=== PATIENT | female | born 1930 | race Caucasian/White ===

== ENCOUNTER 2016-12-05 12:47 | Observation (INO) ==
[2016-12-05] MEDS ORDERED: Aspirin 81 MG TAB.CHEW PO STA (12:54)
--- NOTE | 2016-12-05 12:57 | Emergency Department Note ---
Disposition Clinical Impression: Chest pain Qualifiers: Chest pain type: unspecified Qualified Code(s): R07.9 - Chest pain, unspecified Disposition: Admitted As Inpatient Condition: Fair Referrals: Tyler Sharma Jr, MD [Primary Care Provider] - Forms: ED Satisfaction Letter Time of Disposition: 14:26 Chest Pain HPI - General Chief Complaint: ED Chest Pain Stated Complaint: Chest Pain Time Seen by Provider: 12/05/16 12:51 Source: patient Mode of arrival: ambulatory Limitations: no limitations Vital Signs Reviewed: Yes Nursing Notes Reviewed: Yes - History of Present Illness HPI Narrative: 86-year-old female who has a history of 2 previous bypass surgeries comes in complaining of chest pain for the last couple of hours. Describes it as a pressure-like chest pain without radiation. 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 Duration: constant Onset: during rest Pain Location: substernal, left chest Severity: moderate Quality: tightness, aching, heaviness Pain Radiation: none Improves with: nothing Worsens with: nothing Associated symptoms: Denies: nausea, diaphoresis, dyspnea Treatments prior to arrival chest pain: none - Related Data Home Medications Medication Instructions Recorded Confirmed Acetaminophen w/Cod 300-30 mg 1 tab PO Q6HR PRN 05/07/15 11/14/15 [Tylenol w/Codeine #3] Aspirin 81 mg PO DAILY 05/07/15 11/14/15 Atorvastatin [Lipitor] 40 mg PO HS 05/07/15 11/14/15 Calcitonin Nasal [place] [Miacalcin 1 spray NS DAILY 05/07/15 11/14/15 Nasal [place]] Diltiazem CD (24hr) [Cardizem CD] 240 mg PO DAILY 05/07/15 11/14/15 Omega3/Dha/Epa/Fish Oil/Vit D3 1 cap PO DAILY 05/07/15 11/14/15 [Fish Oil + Vitamin D-3 Softgel] Rivaroxaban [Xarelto] 15 mg PO DAILY 05/07/15 11/14/15 Vitamin B Complex [B Complex] 1 tab PO DAILY 05/07/15 11/14/15 Budesonide/Formoterol Fumarate 1 puff IH DAILY 11/14/15 11/14/15 [Symbicort 80-4.5 Mcg Inhaler] Calcium Carbonate/Vitamin D3 1 tab PO DAILY 11/14/15 11/14/15 [Calcium 600 + Vit D Tablet] Cholecalciferol (Vitamin D3) 2,000 unit PO DAILY 11/14/15 11/14/15 [Vitamin D3] Hydrochlorothiazide [Microzide] 12.5 mg PO DAILY 11/14/15 11/14/15 Multivitamin [Multi-Day Vitamins] 1 tab PO DAILY 11/14/15 11/14/15 TraZODone 50 mg PO DAILY 11/14/15 11/14/15 Previous Rx's Medication Instructions Recorded Simethicone [Gas-X] 80 mg PO TID PRN #60 tab.chew 11/19/15 Sulfamethoxazole/Trimeth DS 1 each PO BID #20 tablet 12/20/15 [Bactrim DS] predniSONE [PredniSONE] 40 mg PO DAILY #8 tablet 12/20/15 Allergies Allergy/AdvReac Type Severity Reaction Status Date / Time clindamycin Allergy See Verified 11/14/15 16:39 Comments acetaminophen [From Vicodin] AdvReac Nausea Verified 11/14/15 16:39 hydrocodone [From Vicodin] AdvReac Nausea Verified 11/14/15 16:39 renexa Allergy Rash Uncoded 12/20/15 10:24 Constitutional: Denies: fever, chills, weakness, weight change Eyes: Denies: eye pain, eye discharge, vision change ENT ED: Denies: ear pain, throat pain, dental pain, hearing loss, epistaxis, congestion, dysphagia Cardiovascular: Reports: chest pain. Denies: palpitations, dyspnea on exertion , edema, syncope Respiratory: Denies: cough, dyspnea, wheezes, hemoptysis, stridor Gastrointestinal: Denies: abdominal pain, nausea, vomiting, diarrhea, constipation, hematemesis, melena, hematochezia Genitourinary: Denies: dysuria, frequency, hematuria, discharge Musculoskeletal: Denies: back pain, neck pain, arthralgia, myalgia Integumentary: Denies: rash, abrasion, lesions Neurological: Denies: headache, weakness, numbness, paresthesias, confusion, abnormal gait, vertigo Psychiatric: Denies: anxiety, depression, suicidal thoughts, homicidal thoughts , auditory hallucinations, visual hallucinations Endocrine: Denies: fatigue Hematological/Lymphatic: Denies: easy bleeding, easy bruising Allergic/Immunologic: Denies: facial swelling, urticaria Chest Pain PMH - Past Medical History Medical history: Reports: atrial fibrillation, hypertension, other Surgical history: Reports: cataract, coronary bypass (CABG) Psychiatric history: Reports: no psych history BATTERYMAN history: Reports: no BATTERYMAN history - Social History Smoking Status: Never smoker Alcohol use: Reports: none Drug use: Reports: none Physical Exam - General Limitations: no limitations General appearance: alert, in no apparent distress - Head Head exam: atraumatic, normocephalic, normal inspection - Eye Eye exam: Present: normal appearance, PERRL, EOMI - ENT ENT exam: normal exam, normal oropharynx, mucous membranes moist - Neck Neck exam: Present: normal inspection, full ROM, trachea midline - Chest Chest inspection: Present: normal inspection, symmetric chest wall rise - Respiratory Respiratory exam: Present: normal lung sounds bilaterally - Cardiovascular Cardiovascular exam: Present: regular rate, normal rhythm, normal heart sounds - Abdominal Exam Abdominal exam: Present: soft, Non-Tender. Absent: tenderness, distention, guarding, rebound, rigidity - Extremities Exam Extremities exam: Present: normal inspection, full ROM. Absent: tenderness, pedal edema - Expanded Lower Extremity Exam Neurovascular/Tendon exam: Absent: motor deficit, sensory deficit, tendon deficit Gait: not tested/not observed - Back Exam Back exam: Present: normal inspection, full ROM. Absent: tenderness - Neurological Exam Neurological exam: Present: alert, oriented X3 - Psychiatric Psychiatric exam: Present: normal affect, normal mood - Skin Skin exam: Present: warm, dry, intact, normal color Course - Reevaluation(s) Reevaluation #1: 86-year-old who developed chest pain today. Patient has a history of bypass surgery 2. Patient has not had a recent heart attack workup. Time: 14:24 - Consultations Consultation #1: Discussed with Dr. Jennings, admit. Time: 14:25 Vital Signs Temperature 98.5 F 12/05/16 12:49 Pulse Rate 90 12/05/16 12:49 Respiratory Rate 18 12/05/16 12:49 Blood Pressure 133/76 12/05/16 12:49 O2 Sat by Pulse Oximetry 94 12/05/16 12:49 Temperature 98.5 F 12/05/16 12:49 Pulse Rate 94 12/05/16 13:04 Respiratory Rate 16 12/05/16 13:04 Blood Pressure 104/80 12/05/16 13:04 O2 Sat by Pulse Oximetry 94 12/05/16 13:04 Oxygen Delivery Oxygen Delivery Room Air Chest Pain - Lab Data Lab results reviewed: Yes I reviewed the patient's lab results. Result diagrams: 12/05/16 13:26 12/05/16 13:26 Lab Results 12/05/16 12/05/16 12/05/16 Range/Units 13:26 13:26 13:26 WBC 8.3 (4.3-11.1) K/mcL RBC 4.44 (3.82-4.97) M/mcL Hgb 10.4 L (11.5-15.4) g/dL Hct 34.5 L (35.3-44.9) % MCV 77.7 L (83.0-100.0) fL MCH 23.4 L (28.0-33.3) pg MCHC 30.1 L (31.6-35.5) g/dL RDW 18.6 H (11.5-14.5) % Plt Count 271 (140-400) K/mcL MPV 8.7 L (9.4-12.4) fL Immature Gran % 0.5 (0-4) % Seg Neutrophils % 77.4 % Lymphocytes % 8.8 % Monocytes % 11.8 % Eosinophils % 1.1 % Basophils % 0.4 % Neutrophils # 6.5 (1.6-8.9) K/mcL Lymphocytes # 0.7 (0.6-4.6) K/mcL Monocytes # 1.0 (0.0-1.3) K/mcL Eosinophils # 0.1 (0.0-0.6) K/mcL Basophils # 0.0 (0.0-0.2) K/mcL PT 13.2 H (9.4-12.1) Seconds INR 1.2 APTT 35.8 (26.0-36.0) Seconds Sodium (136-145) mEq/L Potassium (3.5-4.5) mEq/L Chloride (98-109) mEq/L Carbon Dioxide (19-29) mEq/L BUN (7-20) mg/dL Creatinine (0.57-1.11) mg/dL Est GFR ( Amer) (> 60) Est GFR (Non-Af Amer) (> 60) BUN/Creatinine Ratio (6-26) Glucose (70-99) mg/dL Calculated Osmolality (280-300) Calcium (8.6-10.8) mg/dL Troponin I (0-0.03) ng/mL B-Natriuretic Peptide 187 H (0-100) pg/mL 12/05/16 12/05/16 Range/Units 13:26 13:26 WBC (4.3-11.1) K/mcL RBC (3.82-4.97) M/mcL Hgb (11.5-15.4) g/dL Hct (35.3-44.9) % MCV (83.0-100.0) fL MCH (28.0-33.3) pg MCHC (31.6-35.5) g/dL RDW (11.5-14.5) % Plt Count (140-400) K/mcL MPV (9.4-12.4) fL Immature Gran % (0-4) % Seg Neutrophils % % Lymphocytes % % Monocytes % % Eosinophils % % Basophils % % Neutrophils # (1.6-8.9) K/mcL Lymphocytes # (0.6-4.6) K/mcL Monocytes # (0.0-1.3) K/mcL Eosinophils # (0.0-0.6) K/mcL Basophils # (0.0-0.2) K/mcL PT (9.4-12.1) Seconds INR APTT (26.0-36.0) Seconds Sodium 140 (136-145) mEq/L Potassium 3.4 L (3.5-4.5) mEq/L Chloride 102 (98-109) mEq/L Carbon Dioxide 29 (19-29) mEq/L BUN 28 H (7-20) mg/dL Creatinine 1.38 H (0.57-1.11) mg/dL Est GFR ( Amer) 44 L (> 60) Est GFR (Non-Af Amer) 36 L (> 60) BUN/Creatinine Ratio 20 (6-26) Glucose 101 H (70-99) mg/dL Calculated Osmolality 296 (280-300) Calcium 8.9 (8.6-10.8) mg/dL Troponin I 0.01 (0-0.03) ng/mL B-Natriuretic Peptide (0-100) pg/mL - Radiology Data Radiology results reviewed: Yes I reviewed the patient's radiology results. Chest X-Ray 12/05/16 12:52 IMPRESSION: No acute cardiopulmonary disease. Emphysema. D/ / Rd Ford MD / Rd Ford MD Interpreting Provider: Rd Ford MD - EKG Data EKG attestation: Yes I reviewed and interpreted this EKG. EKG shows normal: sinus rhythm Rate: normal Rhythm: NSR, PAC's Interpretation: no acute changes Heart Score - Score History: Moderately Suspicious EKG: Non Specific repolarisation Disturbance Age: Greater than 65 Risk Factors: Equal/Greater than 3 risk factor or history of atherosclerotic disease Troponin: Less than normal limit HEART Score Total: 6
[2016-12-05 13:35] LABS: Basophils % 0.4 %; Eosinophils # 0.1 K/mcL (0.0-0.6); Eosinophils % 1.1 %; Hematocrit 34.5 % (35.3-44.9); Hemoglobin 10.4 g/dL (11.5-15.4); Immature Granulocytes % 0.5 % (0-4); Lymphocytes # 0.7 K/mcL (0.6-4.6); Lymphocytes % 8.8 %; Mean Corpuscular HGB Conc 30.1 g/dL (31.6-35.5); Mean Corpuscular Hemoglobin 23.4 pg (28.0-33.3); Mean Corpuscular Volume 77.7 fL (83.0-100.0); Mean Platelet Volume 8.7 fL (9.4-12.4); Monocytes % 11.8 %; Neutrophils # 6.5 K/mcL (1.6-8.9); Platelet Count 271 K/mcL (140-400); Red Blood Count 4.44 M/mcL (3.82-4.97); Red Cell Distribution Width 18.6 % (11.5-14.5); Segmented Neutrophils % 77.4 %
[2016-12-05 13:38] LABS: INR 1.2; Prothrombin Time 13.2 Seconds (9.4-12.1)
[2016-12-05 13:41] LABS: Activated Partial Thrombo Time 35.8 Seconds (26.0-36.0)
[2016-12-05 13:44] LABS: Calcium 8.9 mg/dL (8.6-10.8); Potassium 3.4 mEq/L (3.5-4.5)
[2016-12-05] MEDS ORDERED: Naloxone 0.4 MG/ML INJ IVP PRN (16:57)
[2016-12-05] MEDS ORDERED: Nitroglycerin 0.4 MG TAB.SUBL SL PRN (17:01)
[2016-12-05] MEDS ORDERED: *HR* OxyCODONE/APAP 5/325 TABLET PO PRN (17:01)
[2016-12-05] MEDS ORDERED: Furosemide 20 MG/2 ML VIAL IVP ONE (17:08)
--- NOTE | 2016-12-05 17:25 | Internal Med History&Physical ---
<HeidizaynabfemiFrancisco perez - Last Filed: 12/05/16 17:50> Date of Encounter: 12/05/16 Time of Encounter: 16:30 Assessment and Plan (1) Chest pain Current visit: Yes Status: Acute Assess: Patient presents with chief complaint of chest pressure which has been occurring for the past 3 weeks. Patient reports she sometimes wakes up from sleep with chest pressure that radiates up her neck into the back of her head. Patient has history of atrial fibrillation. Plan: Trend troponins x2 Continuous cardiac telemetry EV echocardiogram ordered Continue Xarelto Continue diltiazem Continue isosorbide Continue nitroglycerin Continue aspirin Continue Lipitor Monitor patient vital signs Qualifiers: Chest pain type: other chest pain Qualified Code(s): R07.89 - Other chest pain; R07.8 - Other chest pain (2) Hyperlipidemia Current visit: Yes Status: Chronic Assess: Patient presents with history of chronic hyperlipidemia. Plan: Lipid panel ordered Continue Lipitor Qualifiers: Hyperlipidemia type: pure hypercholesterolemia Qualified Code(s): E78.00 - Pure hypercholesterolemia, unspecified; E78.0 - Pure hypercholesterolemia (3) Atrial fibrillation Current visit: Yes Status: Chronic Assess: Patient presents with history of chronic atrial fibrillation. Plan: Continue Xarelto Continue Cardizem Continuous cardiac gusset folder patient Qualifiers: Atrial fibrillation type: chronic Qualified Code(s): I48.2 - Chronic atrial fibrillation (4) DVT prophylaxis Current visit: Yes Status: Acute Assess: Patient placed on DVT prophylaxis to admission protocol and bedrest status, as well as current arrhythmia. Plan: Continue Xarelto Internal Medicine - H&P: HPI Chief complaint: Chest pain Admitted From: Emergency Dept Plans for Post Hospital Care: Home History of present illness: Mrs. Thomas is a 86 year old female who presents from the ED with chief complaint of chest pain which she states she has been having for the past 3 weeks. Patient reports she wakes up in the middle of the night short of breath with chest pain that radiates up her neck to the back of her head. She reports being short of breath with exertion but denies use of home oxygen. Mrs. Thomas reports nausea but denies vomiting, diarrhea, recent illness, falls, dizziness, diaphoresis, fever, chills, generalized weakness, diarrhea, constipation, abdominal pain, or unusual bleeding. Patient also reports her left leg is swollen for the past 3 weeks with calf pain located in the left leg as well. Patient has a history of atrial fibrillation (he takes Xarelto), hypertension, and hyperlipidemia. Patient had single coronary bypass in 1993. Patient has no stents. Patient to be placed as observation status with chest pain workup and venous Doppler of lower left extremity for possible DVT. Patient to have continuous cardiac telemetry, supplemental O2 with continuous SPO2 monitoring, trending troponins 2, EV echocardiogram, and will be placed nothing by mouth after midnight due to possible stress test tomorrow based on test results. Due to patient's risk factors, she is at moderate risk for cardiac event. We will consider possible nuclear stress test on 12/06/16 based on results of echocardiogram and venous Doppler. Patient to be placed as NPO at midnight for possible prep. Time spent with patient greater than 40 minutes. Past Med Surg Social Fam HX - Past Medical History Source: patient Medical history: arthritis, atrial fibrillation, hyperlipidemia, hypertension, RA Psychiatric history: no psych history - Past Surgical History Surgical History: cataract (Left eye), coronary bypass (CABG), orthopedic, other (Right hand) - Social History Smoking Status: Never smoker Smokeless Tobacco Status: No Alcohol use: none Drug use: none Occupational status: retired Current living situation: Home - Independent Activity Level: Independent ambulation Recent Out of Country Travel Within the Last 8 Weeks: No Exposure or Possible Exposure to Illness During Travel: No - Family History Father Race: Family Member Ethnicity: Non- Living Status: Age at : 73 Cause of : NC Hx Family Cardiac Disorders: Yes (NC) Hx Family Respiratory Disorders: No Hx Family Cancer: No Hx Family GI Disorders: No Hx Family Genitourinary Disorders: No Hx Family Endocrine Disorder: No Hx Family Musculoskeletal Disorders: No Hx Family Neuromuscular Disorders: No Hx Family Neurologic Disorders: No Hx Family HEENT Disorders: No Hx Family Autoimmune Disorders: No Hx Family Reproductive Disorders: No Hx Family Psychosocial Disorders: No Hx Family Medical Disorders: No Mother Race: Family Member Ethnicity: Non- Living Status: Age at : 96 Cause of : Stroke Hx Family Cardiac Disorders: Yes (Stroke) Internal Medicine - H&P: Meds Aspirin 81 mg PO DAILY 05/07/15 [History] Atorvastatin [Lipitor] 40 mg PO HS 05/07/15 [History] Calcitonin Nasal [place] [Miacalcin Nasal [place]] 1 spray NS DAILY 05/07/15 [ History] Diltiazem CD (24hr) [Cardizem CD] 240 mg PO DAILY 05/07/15 [History] Rivaroxaban [Xarelto] 15 mg PO DAILY 05/07/15 [History] Vitamin B Complex [B Complex] 1 tab PO DAILY 05/07/15 [History] Budesonide/Formoterol Fumarate [Symbicort 80-4.5 Mcg Inhaler] 1 puff IH DAILY [History] Cholecalciferol (Vitamin D3) [Vitamin D3] 2,000 unit PO DAILY 11/14/15 [History] Multivitamin [Multi-Day Vitamins] 1 tab PO DAILY 11/14/15 [History] TraZODone 50 mg PO HS 11/14/15 [History] Furosemide [Lasix] 20 mg PO DAILY 12/05/16 [History] Isosorbide MONOnitrate (24 HR) [Imdur] 60 mg PO DAILY 12/05/16 [History] Nitroglycerin [Nitrostat] 0.4 mg SL Q5M PRN 12/05/16 [History] [place]-3/Dha/Epa/Fish Oil [Fish Oil 1,000 mg Softgel] 1,000 mg PO DAILY 12/05/16 [History] Oxycodone HCl/Acetaminophen [Percocet 5-325 mg Tablet] 1 each PO Q6H PRN [History] predniSONE [PredniSONE] 30 mg PO DAILY 12/05/16 [History] Allergies clindamycin Allergy (Verified 11/14/15 16:39) See Comments c diff acetaminophen [From Vicodin] Adverse Reaction (Verified 11/14/15 16:39) Nausea hydrocodone [From Vicodin] Adverse Reaction (Verified 11/14/15 16:39) Nausea renexa Allergy (Uncoded 12/20/15 10:24) Rash All Systems PM: A 10-system review of systems was performed and is negative for pertinent findings except as documented above in the HPI. - Constitutional Constitutional: no chills, no fever(s), no night sweats - EENT Eyes: no change in vision, no discharge, no pain, no photophobia Ears: no ear discharge, no ear pain, no tinnitus Nose, mouth and throat: no dysphagia, no nasal discharge, no neck pain, no sore throat - Breasts Breasts: as per HPI - Cardiovascular Cardiovascular ROS IM: as per HPI, chest pain, claudication (Left lower leg ( calf)), dyspnea on exertion, edema, irregular heart rhythm - Respiratory Respiratory: as per HPI, dyspnea on exertion, no cough, no dyspnea, no wheezing , no excessive phlegm production - Gastrointestinal Gastrointestinal: as per HPI, nausea, no abdominal pain, no diarrhea, no hematemesis, no hematochezia, no melena, no vomiting - Genitourinary Genitourinary: no change in urinary stream, no dysuria, no flank pain, no hematuria Menstruation: as per HPI, post menopausal - Musculoskeletal Musculoskeletal ROS IM: no numbness, no tingling - Integumentary Integumentary IM: unusual bruising (Bilateral bruising on arms due to Xarelto), no rash - Neurological Neurological ROS: as per HPI, headache(s), no confusion, no convulsions, no focal weakness, no numbness, no tingling, no tremor(s) - Psychiatric Psychiatric: as per HPI - Endocrine Endocrine IM: as per HPI - Hematologic/Lymphatic Hematologic/Lymphatic: as per HPI, easy bruising - Allergic/Immunologic Allergic/Immunologic: as per HPI - Constitutional Vitals: Temp Pulse Resp BP Pulse Ox 99.1 F 83 14 108/69 95 12/05/16 15:41 12/05/16 15:41 12/05/16 15:41 12/05/16 15:41 12/05/16 15:00 General appearance: Present: cooperative, A&O X 3, pleasant, no acute distress, answers questions appropriately - Head Head exam: Present: atraumatic, normocephalic - Eye Eye exam: Present: PERRL, conjuntiva pink, sclera anicteric Pupils: Present: PERRL - ENT ENT exam: Present: normal exam, normal external ear exam - Neck Neck exam general surgery: Present: supple, trachea midline. Absent: lymphadenopathy - Respiratory Respiratory exam: Present: CTAB. Absent: accessory muscle use, rales, rhonchi, wheezes - Cardiovascular Cardiovascular exam: Present: irregular rhythm - GI/Abdominal GI/Abdominal exam: Present: normal bowel sounds, soft, no peritoneal signs. Absent: distended, tenderness - Rectal Rectal exam: Present: deferred - Additional comments: exam deferred. - Extremities Exam Extremities exam: Present: calf tenderness (Left leg is more swollen than right) , pedal edema, radial pulses palpable and symetrical - Back Exam Back exam: Present: normal inspection - Neurological Exam Neurological exam: Present: CN II-XII intact, oriented X3, no focal deficits. Absent: pronater drift, facial droop, speech deficit - Psychiatric Psychiatric exam: Present: normal affect, normal mood - Skin Skin exam: Present: dry, intact Internal Med - H&P Results - Labs CBC & Chem 7: 12/05/16 13:26 12/05/16 13:26 - EKG Data EKG shows normal: sinus rhythm - EKG Data Prior EKG available for review: yes When compared to previous EKG: there is no significant change EKG comments: 12/05/16 17:32 EKG dated 03/29/16 shows sinus rhythm with occasional supraventricular premature complexes, possible lateral myocardial infarction of indeterminate age. EKG dated 12/05/16 shows sinus rhythm with occasional supraventricular premature complexes and possible inferior myocardial infarction, probably old with posterior extension. - Diagnostic Studies Chest x-ray Additional comments: Impressions Chest X-Ray 12/05/16 12:52 IMPRESSION: No acute cardiopulmonary disease. Emphysema. D/ / Rd Ford MD / Rd Ford MD Interpreting Provider: Rd Ford MD <Pau Jennings - Last Filed: 12/05/16 18:42> Date of Encounter: 12/05/16 Time of Encounter: 16:45 Internal Medicine - H&P: HPI History of present illness: Ms. Thomas is a 86 year old female All Systems PM: A 10-system review of systems was performed and is negative for pertinent findings except as documented above in the HPI. - Constitutional Vitals: Temp Pulse Resp BP Pulse Ox 99.1 F 83 14 108/69 95 12/05/16 15:41 12/05/16 15:41 12/05/16 15:41 12/05/16 15:41 12/05/16 15:00 Internal Med - H&P Results - Labs CBC & Chem 7: 12/05/16 13:26 12/05/16 13:26 - Attending Attestation I examined this patient and my medical decision-making was reviewed with the nurse practitioner. I agree with the documented history of present illness, review of systems, past medical, surgical social and family histories and examination findings, disposition and treatment plan as described above except to any changes set forth below. 86-year-old female patient with history of coronary artery disease status post bypass grafting presented to the ER with complaints of shortness of breath and chest pain. Her symptoms have been ongoing intermittently for the past 2-3 weeks. She also has been having episodes of paroxysmal nocturnal dyspnea with swelling in both her lower extremities. She also has a history of A. fib and is on Xarelto for it. On examination, patient in a normal sinus rhythm with normal S1 and S2. Respiratory exam is normal. Patient has bilateral pedal edema and her left lower extremity is more swollen compared to the right. Chest pain: Atypical precordial chest pain with shortness of breath and radiation to both jaws. Trend troponins. Monitor with telemetry. If negative , plan for a stress test in a.m. Bilateral lower extremity edema with swelling greater on the left: We will get 2 -D echocardiogram. Trial dose of Lasix. Will also get venous Doppler. Atrial fibrillation: Patient is on Cardizem for rate control. Will continue. On anticoagulation with Xarelto. Chronic kidney disease stage III: Renal function is at baseline. We will monitor renal function closely to Lasix use.
[2016-12-06 01:14] LABS: Basophils % 0.4 %; Eosinophils # 0.2 K/mcL (0.0-0.6); Hematocrit 32.5 % (35.3-44.9); Hemoglobin 9.9 g/dL (11.5-15.4); Immature Granulocytes % 0.6 % (0-4); Lymphocytes # 1.1 K/mcL (0.6-4.6); Lymphocytes % 15.3 %; Mean Corpuscular HGB Conc 30.5 g/dL (31.6-35.5); Mean Corpuscular Hemoglobin 23.6 pg (28.0-33.3); Mean Corpuscular Volume 77.4 fL (83.0-100.0); Mean Platelet Volume 9.2 fL (9.4-12.4); Monocytes % 14.8 %; Neutrophils # 4.6 K/mcL (1.6-8.9); Platelet Count 282 K/mcL (140-400); Red Cell Distribution Width 18.7 % (11.5-14.5); Segmented Neutrophils % 65.9 %
[2016-12-06 01:19] LABS: INR 1.1; Prothrombin Time 12.1 Seconds (9.4-12.1)
[2016-12-06 01:22] LABS: Activated Partial Thrombo Time 36.4 Seconds (26.0-36.0)
[2016-12-06 01:27] LABS: Albumin 3.1 g/dL (3.5-5.0); Albumin/Globulin Ratio 1.3 (1.1-2.2); Bilirubin,Total 0.5 mg/dL (0.2-1.2); Calcium 8.6 mg/dL (8.6-10.8); Chol/HDL Ratio 3.5 (0-4.9); Globulin 2.4 g/dL (2.4-3.5); Magnesium 1.9 mg/dL (1.6-2.6); Potassium 3.4 mEq/L (3.5-4.5); Total Protein 5.5 g/dL (6.0-8.3)
--- NOTE | 2016-12-06 07:12 | Carotid Imaging Report ---
Carotid Duplex Patient Name:Ginger Thomas Order Number:[id number] Procedure Date:12/05/2016 Date:1930Age:86 yrs Gender:Female Lt BP:109 / 68 mmHg Rt.BP:108 / 69 mmHgHeart Rate: Location:[facility] Room #: 3B53 Screen And Cyclone Repairer:Dianne Choudhury Referring MD:Francisco Solano CNP statistical clerk:Tyler Sharma MD Reading MD:Agapito Morse MD Primary Indications:chest pain radiating to neck bilaterally and to head Risk Factors Yes/No Hypertension Yes Hypercholesterolemia Yes Anticoagulants Yes Impressions: The right carotid artery is normal throughout. The left carotid artery has minimal plaque throughout. Recommendations: After imaging the patient returned to their room. Findings Carotid Duplex: Right: The right proximal common carotid artery has a PSV of 116 cm/s and a EDV of 20 cm/s. The right mid common carotid artery has a PSV of 95 cm/s and a EDV of 22 cm/s. The right distal common carotid artery has a PSV of 91 cm/s and a EDV of 24 cm/s. The right bifurcation has a PSV of 81 cm/s and a EDV of 17 cm/s. The right proximal internal carotid artery has a PSV of 78 cm/s and a EDV of 22 cm/s. The right mid internal carotid artery has a PSV of 75 cm/s and a EDV of 18 cm/s. The right distal internal carotid artery has a PSV of 90 cm/s and a EDV of 29 cm/s. The right eca has a PSV of 113 cm/s and a EDV of 3 cm/s. The right vertebral artery has a PSV of 52 cm/s and a EDV of 12 cm/s. Left: The left proximal common carotid artery has a PSV of 90 cm/s and a EDV of 13 cm/s. The left mid common carotid artery has a PSV of 80 cm/s and a EDV of 19 cm/s. The left distal common carotid artery has a PSV of 78 cm/s and a EDV of 16 cm/s. There is nonstenotic plaque in the left bifurcation with a PSV of 61 cm/s and a EDV of 9 cm/s. The left proximal internal carotid artery has a PSV of 101 cm/s and a EDV of 24 cm/s. The left mid internal carotid artery has a PSV of 94 cm/s and a EDV of 27 cm/s. The left distal internal carotid artery has a PSV of 87 cm/s and a EDV of 22 cm/s. The left eca has a PSV of 85 cm/s and a EDV of 6 cm/s. The left vertebral artery has a PSV of 41 cm/s and a EDV of 13 cm/s. Prior Study: No prior study available for comparison. Carotid Results Right PSV EDV Assessment Proximal CCA 116 20 Normal Mid CCA 95 22 Normal Distal CCA 91 24 Normal Bifurcation 81 17 Normal Proximal ICA 78 22 Normal Mid ICA 75 18 Normal Distal ICA 90 29 Normal ECA 113 3 Normal Vertebral Artery 52 12 Normal Left PSV EDV Assessment Proximal CCA 90 13 Normal Mid CCA 80 19 Normal Distal CCA 78 16 Normal Bifurcation 61 9 Non Stenotic Plaque Proximal ICA 101 24 Normal Mid ICA 94 27 Normal Distal ICA 87 22 Normal ECA 85 6 Normal Vertebral Artery 41 13 Normal Ratio's Right ICA/CCA Ratio: 0.95 ICA/CCA Values: 90/95 Left ICA/CCA Ratio: 1.26 ICA/CCA Values: 101/80 Updated by Agapito Morse MD on 12/06/2016 7:05:48 AM electronically signed on 12/06/2016 7:06:02 AM with status of Final
--- NOTE | 2016-12-06 07:27 | Venous Imaging Report ---
LE Venous Duplex Patient Name:Ginger Thomas Order Number:[id number] Procedure Date:12/05/2016 Date:1930Age:86 yrs Gender:Female Location:[facility] Room #: Provider Relations Representative:Dianne Choudhury Referring MD:Francisco Solano CNP event representative:Tyler Sharma MD Reading MD:Agapito Morse MD Primary Indications:Left calf swelling and pain Secondary Indications: Risk Factors Yes/No Anticoagulants Yes Impressions: Normal left lower extremity deep venous exam. 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 Normal contralateral common femoral vein. Recommendations: After imaging the patient returned to their room. Gave vascular preliminary results to Vinicius BENNETT. Test completed on 12/05/2016 at 9:59:00 pm. Critical findings reported to Vinicius BENNETT 3B by phone at 10:37:00 pm on 12/05/2016 by Dianne Choudhury. Findings Venous Duplex Results: Right: Venous imaging of the lower extremity reveals full patency and normal vessel compressibility of the right common femoral. Doppler signals in the evaluated veins were normal. Left: Venous imaging of the lower extremity reveals full patency and normal vessel compressibility of the left distal iliac, left common femoral, left superficial femoral, left popliteal, left posterior tibial, left peroneal and left great saphenous. Doppler signals in the evaluated veins were normal. There is a partially occlusive thrombus seen in the left lesser saphenous. It demonstrates a partially compressible vein. Flow was phasic and it did augment. Prior Study: No prior study available for comparison. Lower Extremity Venous Duplex Side Vein Compress Spontaneous Flow Augment Diameter (cm) Depth (cm) Left Distal Iliac Normal yes Phasic yes Left Common Femoral Normal yes Phasic yes Left Superficial Femoral Normal yes Phasic yes Left Popliteal Normal yes Phasic yes Left Posterior Tibial Normal yes Phasic yes Left Peroneal Normal yes Phasic yes Left Great Saphenous Normal yes Phasic yes Left Lesser Saphenous Partial yes Phasic yes Right Common Femoral Normal yes Phasic yes Updated by Agapito Morse MD on 12/06/2016 7:20:08 AM electronically signed on 12/06/2016 7:20:30 AM with status of Final
[2016-12-06] MEDS ORDERED: Aspirin 81 MG TAB.CHEW PO SCH (09:00)
[2016-12-06] MEDS ORDERED: Cholecalciferol (D-3) 1,000 UNIT TABLET PO SCH (09:00)
[2016-12-06] MEDS ORDERED: Vitamin B Complex/Vit C/Vit E 1 EACH TABLET PO SCH (09:00)
[2016-12-06] MEDS ORDERED: CALCITONIN NS SCH (09:00)
[2016-12-06] MEDS ORDERED: Multivit/Ca/Min/Fe/FA 1 TAB TABLET PO SCH (09:00)
[2016-12-06] MEDS ORDERED: Isosorbide MONOnitrate (24 HR) 60 MG TAB.ER.24H PO SCH (09:00)
[2016-12-06] MEDS ORDERED: predniSONE 20 MG TABLET PO SCH (09:00)
[2016-12-06] MEDS ORDERED: Diltiazem CD (24hr) 240 MG CAPSULE PO SCH (09:00)
[2016-12-06] MEDS ORDERED: (Omega-3/Dha/Epa/Fish Oil [Fish Oil 1,000 Mg Softgel] PO SCH (09:00)
[2016-12-06] MEDS ORDERED: Budesonide/Formoterol 80/4.5 MDI IH SCH (09:00)
--- NOTE | 2016-12-06 12:25 | Event Note ---
Date of Encounter: 12/06/16 Time of Encounter: 12:30 - Cardiology Event Note Patient discussed with the primary service. No official consult placed today. Patient well known to cardiology. Troponins negative 3. Abnormal stress test August 2016 apparently been medically managed. Patient agreeable to titrate medications and follow-up in outpatient setting for reevaluation; she does not necessarily want a LHC, but prefers to discuss at f/u. Follow-up scheduled. Please consult if needed.
--- NOTE | 2016-12-06 16:03 | Discharge Summary ---
Date of Encounter: 12/06/16 Time of Encounter: 10:20 - Discharge Diagnosis (1) Chest discomfort Priority: Primary Status: Acute Comments: Patient presented to the emergency department with mid/upper chest pain that radiates into bilateral neck, teeth, and posterior neck. She describes it as an intense dull pain and rates as 10 out of 10. She says this is been happening for a couple of months. She says it happens approximately one time a week and there is no pattern other than it always happens at night at around 1 or 2 AM. She reports nausea, denies shortness of breath, vomiting, diaphoresis. She says that she takes trazodone to sleep at night occasionally. Patient had abnormal stress test in August,. They have been medically managing it with Imdur, patient states that that was working well until recently. She says she does not want to have a left heart catheter, would like to discuss it with cardiology for her next follow-up. She is pain-free at this time. Troponins were negative, echocardiogram showed normal systolic function, LVEF 65 -70%. There is atypical septal wall motion consistent with prior cardiac surgery. Mild diastolic dysfunction, normal RV size and function, mild aortic stenosis, tricuspid regurgitation. Mild pulmonary hypertension. She had carotid Dopplers done that showed right carotid is normal, left has minimal plaque throughout. She will continue her Cipro, diltiazem, aspirin, Lipitor. We will increase her Imdur to 120 mg by mouth daily. Chest X-Ray 12/05/16 12:52 IMPRESSION: No acute cardiopulmonary disease. Emphysema. D/ / Rd Ford MD / Rd Ford MD Interpreting Provider: Rd Ford MD (2) Hypertension Priority: Secondary Status: Chronic Comments: Chronic. Continue home medications. Qualifiers: Hypertension type: essential hypertension Qualified Code(s): I10 - Essential (primary) hypertension (3) Hyperlipidemia Priority: Secondary Status: Chronic Comments: Chronic. Continue Lipitor. Qualifiers: Hyperlipidemia type: pure hypercholesterolemia Qualified Code(s): E78.00 - Pure hypercholesterolemia, unspecified; E78.0 - Pure hypercholesterolemia (4) CKD (chronic kidney disease) stage 3, GFR 30-59 ml/min Priority: Secondary Status: Chronic Comments: Creatinine 1.25, GFR 41. Avoid nephrotoxins, follow-up with primary care for continued evaluation. (5) Diastolic CHF Priority: Secondary Status: Chronic Qualifiers: Congestive heart failure chronicity: chronic Qualified Code(s): I50.32 - Chronic diastolic (congestive) heart failure (6) Atrial fibrillation Priority: Secondary Status: Chronic Comments: By history. Continue anticoagulation, Cardizem. Patient has follow-up with cardiology. EKG sinus rhythm with occasional PVCs. Vent rate 89, MO interval 130, QT/QTc 349 /395 Qualifiers: Atrial fibrillation type: chronic Qualified Code(s): I48.2 - Chronic atrial fibrillation - Discharge Medications Home Medications: Aspirin 81 mg PO DAILY 05/07/15 [History] Atorvastatin [Lipitor] 40 mg PO HS 05/07/15 [History] Calcitonin Nasal [place] [Miacalcin Nasal [place]] 1 spray NS DAILY 05/07/15 [ History] Diltiazem CD (24hr) [Cardizem CD] 240 mg PO DAILY 05/07/15 [History] Rivaroxaban [Xarelto] 15 mg PO DAILY 05/07/15 [History] Vitamin B Complex [B Complex] 1 tab PO DAILY 05/07/15 [History] Budesonide/Formoterol Fumarate [Symbicort 80-4.5 Mcg Inhaler] 1 puff IH DAILY [History] Cholecalciferol (Vitamin D3) [Vitamin D3] 2,000 unit PO DAILY 11/14/15 [History] Multivitamin [Multi-Day Vitamins] 1 tab PO DAILY 11/14/15 [History] TraZODone 50 mg PO HS 11/14/15 [History] Furosemide [Lasix] 20 mg PO DAILY 12/05/16 [History] Isosorbide MONOnitrate (24 HR) [Imdur] 60 mg PO DAILY 12/05/16 [History] Nitroglycerin [Nitrostat] 0.4 mg SL Q5M PRN 12/05/16 [History] [place]-3/Dha/Epa/Fish Oil [Fish Oil 1,000 mg Softgel] 1,000 mg PO DAILY 12/05/16 [History] Oxycodone HCl/Acetaminophen [Percocet 5-325 mg Tablet] 1 each PO Q6H PRN [History] predniSONE [PredniSONE] 30 mg PO DAILY 12/05/16 [History] Allergies/Adverse Reactions: Allergies clindamycin Allergy (Verified 11/14/15 16:39) See Comments c diff acetaminophen [From Vicodin] Adverse Reaction (Verified 11/14/15 16:39) Nausea hydrocodone [From Vicodin] Adverse Reaction (Verified 11/14/15 16:39) Nausea renexa Allergy (Uncoded 12/20/15 10:24) Rash Procedures/tests Complete & Pending: Procedures Performed prior 72 hours Category Date Time Status EV carotid duplex imaging BI Routine Y 12/05/16 17:36 Completed EV echocardiogram Routine Y 12/06/16 17:07 Completed Venous Doppler [EV venous imaging LE LT] Routine Y 12/05/16 17:05 Completed Date of admission: 12/05/16 14:46 Primary care physician: Tyler Sharma Jr, MD Consults: 12/06/16 11:38 Consult to Vice President Digital Strategist [CONS] Routine Reason for SW Consult: Discharge planning Discharging clinician: Carola Escamilla Anticipated date of discharge: 12/06/16 - Patient Status Disposition: Home, Self-Care Condition: Good Functional capacity at discharge: independent ambulation - Discharge Instructions Follow Up With: Tyler Sharma Jr, MD [Primary Care Provider] - Additional Instructions: Please follow their primary care physician in next week to 10 days for follow- up appointment. Please follow-up with cardiology as scheduled. Resume your home medications tomorrow morning His return to the emergency department as needed for any other problems or concerns or if her symptoms return. - Diet and Activity Activity: increase activity as tolerated Diet: advance to your usual diet Interval History: Mrs. Thomas is an 86-year-old female presented to the emergency department chief complaint of chest pain. She reports to ER and admitting physician she has been having the pain for about 3 weeks. She tells me that his been going on for a couple of months. She says it only happens at night around 1 AM to 2 AM. Usually awakens her from sound sleep. She describes it as mid/upper chest with radiation into bilateral neck, her teeth, posterior neck. She describes it as intense dull pain and rates it 10 out of 10 at its worst. She reports it happens approximately one time a week if there is no known pattern. She does have nausea with the pain. She reports sometimes she takes trazodone to help her sleep. Patient is very active and lives alone. She has no social service needs. She had an abnormal stress test in August, that has been medically managed with Imdur. She said his been working well until the last couple of months. She states that she does not want her catheter at this time, she was to see Dr. Mir yesterday, but she was in the emergency department was unable to make the trip. She will follow up outpatient and discuss options. Troponins were negative, echocardiogram showed normal systolic function, LVEF 65 -70%, mild diastolic dysfunction, normal right ventricular size and function with mild aortic stenosis, mild tricuspid regurgitation, and mild pulmonary hypertension. Labs are at baseline. She is pain-free. Patient is appropriate for discharge. Hospital course: Ms. Thomas is a 86 year old female - Time Spent with Patient Total time spent providing and/or coordinating discharge services: Less than 30 minutes - Constitutional Vitals: Temp Pulse Resp BP Pulse Ox 98.1 F 83 16 95/59 93 12/06/16 14:48 12/06/16 14:48 12/06/16 14:48 12/06/16 14:48 12/06/16 14:48 General appearance: Present: cooperative, A&O X 3, pleasant, no acute distress, answers questions appropriately - Head Head exam: Present: normal inspection - Eye Eye exam: Present: normal appearance, conjuntiva pink - ENT ENT exam: Present: mucous membranes moist, normal exam - Neck Neck exam general surgery: Present: normal inspection. Absent: lymphadenopathy , tenderness - Respiratory Respiratory exam: Present: CTAB. Absent: rales, respiratory distress, rhonchi, stridor, wheezes - Cardiovascular Cardiovascular exam: Present: RRR, +S1, +S2. Absent: diastolic murmur, systolic murmur - GI/Abdominal GI/Abdominal exam: Present: normal bowel sounds, soft. Absent: hepatomegaly, tenderness - Neurological Exam Neurological exam: Present: alert, oriented X3. Absent: facial droop, speech deficit - Skin Skin exam: Present: dry, normal color, warm. Absent: rash
[2016-12-06] MEDS ORDERED: *HR* Rivaroxaban 15 MG TABLET PO SCH (17:00)
[2016-12-06 17:24] VITALS: BP 125/80
--- NOTE | 2016-12-06 17:32 | Electrocardiograph Report ---
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
--- NOTE | 2016-12-06 18:57 | Physician Discharge Referral ---
Home Health/Hosp Referral Info Provider in Charge Post Discharge: PCP - Diagnosis (1) Chest discomfort Priority: Primary Status: Acute (2) Hypertension Priority: Secondary Status: Chronic (3) Hyperlipidemia Priority: Secondary Status: Chronic (4) CKD (chronic kidney disease) stage 3, GFR 30-59 ml/min Priority: Secondary Status: Chronic (5) Diastolic CHF Priority: Secondary Status: Chronic (6) Atrial fibrillation Priority: Secondary Status: Chronic - Respiratory Orders Oxygen / L per min Smoking Cessation: Smoking cessation has been advised. For more information, call the [place] Tobacco Quit Line at 4-439-PADP-NOW. - Diet/Nutrition Diet/Nutrition Orders: Regular - Activity Activity Orders: Up ad dolores - Services Needed Following services are medically necessary services: Nursing, Home Health Aide, Physical Therapy, Occupational Therapy - Transfer Medications Home Medications: Aspirin 81 mg PO DAILY 05/07/15 [History] Atorvastatin [Lipitor] 40 mg PO HS 05/07/15 [History] Calcitonin Nasal [place] [Miacalcin Nasal [place]] 1 spray NS DAILY 05/07/15 [ History] Diltiazem CD (24hr) [Cardizem CD] 240 mg PO DAILY 05/07/15 [History] Rivaroxaban [Xarelto] 15 mg PO DAILY 05/07/15 [History] Vitamin B Complex [B Complex] 1 tab PO DAILY 05/07/15 [History] Budesonide/Formoterol Fumarate [Symbicort 80-4.5 Mcg Inhaler] 1 puff IH DAILY [History] Cholecalciferol (Vitamin D3) [Vitamin D3] 2,000 unit PO DAILY 11/14/15 [History] Multivitamin [Multi-Day Vitamins] 1 tab PO DAILY 11/14/15 [History] TraZODone 50 mg PO HS 11/14/15 [History] Furosemide [Lasix] 20 mg PO DAILY 12/05/16 [History] Isosorbide MONOnitrate (24 HR) [Imdur] 60 mg PO DAILY 12/05/16 [History] Nitroglycerin [Nitrostat] 0.4 mg SL Q5M PRN 12/05/16 [History] [place]-3/Dha/Epa/Fish Oil [Fish Oil 1,000 mg Softgel] 1,000 mg PO DAILY 12/05/16 [History] Oxycodone HCl/Acetaminophen [Percocet 5-325 mg Tablet] 1 each PO Q6H PRN [History] predniSONE [PredniSONE] 30 mg PO DAILY 12/05/16 [History] Allergies/Adverse Reactions: Allergies clindamycin Allergy (Verified 11/14/15 16:39) See Comments c diff acetaminophen [From Vicodin] Adverse Reaction (Verified 11/14/15 16:39) Nausea hydrocodone [From Vicodin] Adverse Reaction (Verified 11/14/15 16:39) Nausea renexa Allergy (Uncoded 12/20/15 10:24) Rash Certification: Further, I certify that my clinical findings support that this patient is homebound (i.e. absences from home require considerable and taxing effort and are for medical reasons or catholic services or infrequently or short duration when for other reasons) because: Homebound Reason: Patient requires assistance of a person or device to safely leave home Attestation: My signature below is to certify that this patient is under my care and that I, or nurse practitioner, or a physician's pastrycook's assistant working with me, has a face-to -face encounter with this patient.
[2016-12-06] MEDS ORDERED: traZODone 50 MG TABLET PO SCH (21:00)
== END 2016-12-06 17:35 | disposition home or self-care (01) ==
LOC: 3BNU 12:47 → EMEROO 12:47 → 3BNU 15:29
PROVIDERS: ADMIT Internal Medicine; ATTEND Registered Nurse

== ENCOUNTER 2017-01-03 06:10 | Observation (INO) ==
--- NOTE | 2017-01-03 06:20 | Emergency Department Note ---
Disposition Clinical Impression: Chest pain, rule out acute myocardial infarction Disposition: Admitted As Inpatient Condition: Fair Instructions: Chest Pain (ED) Referrals: NO,PCP [Non-Partnered Physician] - Forms: ED Satisfaction Letter Time of Disposition: 07:39 Chest Pain HPI - General Chief Complaint: ED Chest Pain Stated Complaint: CHIDI/CP Time Seen by Provider: 01/03/17 06:16 Source: patient Mode of arrival: EMS Limitations: no limitations Vital Signs Reviewed: Yes Nursing Notes Reviewed: Yes - History of Present Illness HPI Narrative: Alert and oriented nontoxic-appearing 86-year-old female presents by EMS for evaluation of substernal chest pressure that awoke her from her sleep at approximately 4:00 AM. She states that at the time of symptom onset, she would have rated her pain an 8 out of 10 on a 10 point scale. She self administered 2 nitroglycerin tablets at home with some subsequent relief. The patient was given 324 mg aspirin and an additional 2 sublingual nitroglycerin tablets by EMS in route to the hospital. She now rates her pain a 4 out of 10 on a 10 point scale. She states that this pressure does radiate into her left upper extremity. She states that at the time of symptom onset, she was nauseated and somewhat diaphoretic. She denies any recent upper respiratory symptoms. She denies any fever, cough, sputum production, or hemoptysis. She does complain of increased lateral lower extremity edema however denies any history of CHF. She complains of being slightly short of breath in addition to the chest pressure however does not use home oxygen at home. The patient was saturating 96% on room air on her arrival. She states some significant relief with the administration of 2 L of oxygen by nasal cannula. She is now saturating 100% on 2 L. Pt complaint: chest pain Onset (ago): hour(s) (0) Duration: constant Onset: awoke with symptoms Pain Location: substernal Severity: moderate Severity scale (1-10): 4 Quality: heaviness Pain Radiation: LUE Improves with: nothing Worsens with: nothing Associated symptoms: Reports: nausea, diaphoresis, leg swelling (bilateral lower extremity edema). Denies: fever, cough Treatments prior to arrival chest pain: aspirin (ASA 324mg by EMS), nitroglycerin (SL x 2 tabs at home prior to calling EMS and an additional 2 tabs SL by EMS en route to ED) - Related Data Home Medications Medication Instructions Recorded Confirmed Aspirin 81 mg PO DAILY 05/07/15 01/03/17 Atorvastatin [Lipitor] 40 mg PO HS 05/07/15 01/03/17 Calcitonin Nasal [place] [Miacalcin 1 spray NS DAILY 05/07/15 01/03/17 Nasal [place]] Diltiazem CD (24hr) [Cardizem CD] 240 mg PO DAILY 05/07/15 01/03/17 Rivaroxaban [Xarelto] 15 mg PO DAILY 05/07/15 01/03/17 Vitamin B Complex [B Complex] 1 tab PO DAILY 05/07/15 01/03/17 Budesonide/Formoterol Fumarate 1 puff IH DAILY 11/14/15 01/03/17 [Symbicort 80-4.5 Mcg Inhaler] Cholecalciferol (Vitamin D3) 2,000 unit PO DAILY 11/14/15 01/03/17 [Vitamin D3] Multivitamin [Multi-Day Vitamins] 1 tab PO DAILY 11/14/15 01/03/17 TraZODone 50 mg PO HS 11/14/15 01/03/17 Furosemide [Lasix] 20 mg PO DAILY 12/05/16 01/03/17 Isosorbide MONOnitrate (24 HR) 90 mg PO DAILY 12/05/16 01/03/17 [Imdur] Nitroglycerin [Nitrostat] 0.4 mg SL Q5M PRN 12/05/16 01/03/17 Oxycodone HCl/Acetaminophen 1 tab PO Q6H PRN 12/05/16 01/03/17 [Percocet 5-325 mg Tablet] predniSONE [PredniSONE] 30 mg PO DAILY 12/05/16 01/03/17 Allergies Allergy/AdvReac Type Severity Reaction Status Date / Time clindamycin Allergy See Verified 11/14/15 16:39 Comments acetaminophen [From Vicodin] AdvReac Nausea Verified 11/14/15 16:39 hydrocodone [From Vicodin] AdvReac Nausea Verified 11/14/15 16:39 renexa Allergy Rash Uncoded 12/20/15 10:24 All systems ED: reviewed and negative except as stated. Constitutional: Denies: fever, chills, weakness, weight change Eyes: Denies: eye pain, eye discharge, vision change ENT ED: Denies: ear pain, throat pain, dental pain, hearing loss, epistaxis, congestion, dysphagia Cardiovascular: Reports: as per HPI, chest pain. Denies: palpitations, dyspnea on exertion, edema, syncope Respiratory: Reports: as per HPI, dyspnea. Denies: cough, wheezes, hemoptysis, stridor Gastrointestinal: Reports: as per HPI, nausea. Denies: abdominal pain, vomiting , diarrhea, constipation, hematemesis, melena, hematochezia Genitourinary: Denies: dysuria, frequency, hematuria, discharge Musculoskeletal: Denies: back pain, neck pain, arthralgia, myalgia Integumentary: Denies: rash, abrasion, lesions Neurological: Denies: headache, weakness, numbness, paresthesias, confusion, abnormal gait, vertigo Psychiatric: Denies: anxiety, depression, suicidal thoughts, homicidal thoughts , auditory hallucinations, visual hallucinations Endocrine: Denies: fatigue Hematological/Lymphatic: Denies: easy bleeding, easy bruising Allergic/Immunologic: Denies: facial swelling, urticaria Chest Pain PMH - Past Medical History Medical history: Reports: arthritis, atrial fibrillation, hyperlipidemia, hypertension, RA Surgical history: Reports: cataract (Left eye), coronary bypass (CABG), orthopedic, other (Right hand) Psychiatric history: Reports: no psych history INFRASTRUCTURE DESIGN ENGINEER history: Reports: no INFRASTRUCTURE DESIGN ENGINEER history - Social History Smoking Status: Never smoker Alcohol use: Reports: none Drug use: Reports: none Physical Exam - General Limitations: no limitations General appearance: alert, in no apparent distress - Head Head exam: atraumatic, normocephalic, normal inspection - Eye Eye exam: Present: normal appearance, PERRL, EOMI. Absent: nystagmus - ENT ENT exam: mucous membranes moist - Neck Neck exam: Present: normal inspection, full ROM, trachea midline - Chest Chest inspection: Present: normal inspection, symmetric chest wall rise - Respiratory Respiratory exam: Present: normal lung sounds bilaterally. Absent: respiratory distress, wheezes, stridor, accessory muscle use, prolonged expiratory phase - Cardiovascular Cardiovascular exam: Present: regular rate, normal rhythm, normal heart sounds - Abdominal Exam Abdominal exam: Present: soft, Non-Tender, normal bowel sounds. Absent: tenderness, distention, guarding, rebound, rigidity - Extremities Exam Extremities exam: Present: full ROM, pedal edema (Bilateral pedal and pre- tibial edema noted, 2+). Absent: tenderness - Neurological Exam Neurological exam: Present: alert, oriented X3 - Psychiatric Psychiatric exam: Present: normal affect, normal mood - Skin Skin exam: Present: warm, dry, intact, normal color Course Course Narrative: 0720: I have discussed this patient's case with Dr. Yancey. I have also discussed the patient's chest x-ray findings of an elongated and tortuous aorta. We have reviewed images from previous checks X-rays. No appreciable differences are noted on the imaging despite previous radiology reports not having mentioned a elongated or tortuous aorta. Dr. Yancey feels that this does not warrant further evaluation at this time. He agrees with admission to the hospitalist service for ACS rule out. 0738: I spoke with Dr. Garcia of the hospitalist service who has accepted the patient for admission for ACS rule out and further observation. Vital Signs Temperature 98.6 F 01/03/17 06:12 Pulse Rate 66 01/03/17 06:12 Respiratory Rate 18 01/03/17 06:12 Blood Pressure 169/89 01/03/17 06:12 O2 Sat by Pulse Oximetry 100 01/03/17 06:12 Temperature 98.6 F 01/03/17 06:12 Pulse Rate 78 01/03/17 07:34 Respiratory Rate 18 01/03/17 06:12 Blood Pressure 152/83 01/03/17 07:34 O2 Sat by Pulse Oximetry 100 01/03/17 07:34 Oxygen Delivery Oxygen Delivery Nasal Cannula Chest Pain - Medical Records Medical records reviewed: Yes I reviewed the patient's medical records. - Lab Data Lab results reviewed: Yes I reviewed the patient's lab results. Lab results narrative: Laboratory Last Values WBC 8.0 K/mcL (4.3-11.1) 01/03/17 06:35 RBC 4.34 M/mcL (3.82-4.97) 01/03/17 06:35 Hgb 9.9 g/dL (11.5-15.4) L 01/03/17 06:35 Hct 33.7 % (35.3-44.9) L 01/03/17 06:35 MCV 77.6 fL (83.0-100.0) L 01/03/17 06:35 MCH 22.8 pg (28.0-33.3) L 01/03/17 06:35 MCHC 29.4 g/dL (31.6-35.5) L 01/03/17 06:35 RDW 18.2 % (11.5-14.5) H 01/03/17 06:35 Plt Count 265 K/mcL (140-400) 01/03/17 06:35 MPV 8.6 fL (9.4-12.4) L 01/03/17 06:35 Immature Gran % 1.2 % (0-4) 01/03/17 06:35 Seg Neutrophils % 71.7 % 01/03/17 06:35 Lymphocytes % 13.4 % 01/03/17 06:35 Monocytes % 11.7 % 01/03/17 06:35 Eosinophils % 1.5 % 01/03/17 06:35 Basophils % 0.5 % 01/03/17 06:35 Neutrophils # 5.7 K/mcL (1.6-8.9) 01/03/17 06:35 Lymphocytes # 1.1 K/mcL (0.6-4.6) 01/03/17 06:35 Monocytes # 0.9 K/mcL (0.0-1.3) 01/03/17 06:35 Eosinophils # 0.1 K/mcL (0.0-0.6) 01/03/17 06:35 Basophils # 0.0 K/mcL (0.0-0.2) 01/03/17 06:35 PT 13.5 Seconds (9.4-12.1) H 01/03/17 06:35 INR 1.2 01/03/17 06:35 APTT 36.0 Seconds (26.0-36.0) 01/03/17 06:35 Sodium 141 mEq/L (136-145) 01/03/17 06:35 Potassium 3.8 mEq/L (3.5-4.5) 01/03/17 06:35 Chloride 104 mEq/L (98-109) 01/03/17 06:35 Carbon Dioxide 34 mEq/L (19-29) H 01/03/17 06:35 BUN 26 mg/dL (7-20) H 01/03/17 06:35 Creatinine 1.34 mg/dL (0.57-1.11) H 01/03/17 06:35 Est GFR ( Amer) 45 (> 60) L 01/03/17 06:35 Est GFR (Non-Af Amer) 37 (> 60) L 01/03/17 06:35 BUN/Creatinine Ratio 19 (6-26) 01/03/17 06:35 Glucose 97 mg/dL (70-99) 01/03/17 06:35 Calculated Osmolality 297 (280-300) 01/03/17 06:35 Calcium 8.9 mg/dL (8.6-10.8) 01/03/17 06:35 Troponin I 0.02 ng/mL (0-0.03) 01/03/17 06:35 B-Natriuretic Peptide 240 pg/mL (0-100) H 01/03/17 06:35 Result diagrams: 01/03/17 06:35 01/03/17 06:35 Lab Results 01/03/17 01/03/17 01/03/17 Range/Units 06:35 06:35 06:35 WBC 8.0 (4.3-11.1) K/mcL RBC 4.34 (3.82-4.97) M/mcL Hgb 9.9 L (11.5-15.4) g/dL Hct 33.7 L (35.3-44.9) % MCV 77.6 L (83.0-100.0) fL MCH 22.8 L (28.0-33.3) pg MCHC 29.4 L (31.6-35.5) g/dL RDW 18.2 H (11.5-14.5) % Plt Count 265 (140-400) K/mcL MPV 8.6 L (9.4-12.4) fL Immature Gran % 1.2 (0-4) % Seg Neutrophils % 71.7 % Lymphocytes % 13.4 % Monocytes % 11.7 % Eosinophils % 1.5 % Basophils % 0.5 % Neutrophils # 5.7 (1.6-8.9) K/mcL Lymphocytes # 1.1 (0.6-4.6) K/mcL Monocytes # 0.9 (0.0-1.3) K/mcL Eosinophils # 0.1 (0.0-0.6) K/mcL Basophils # 0.0 (0.0-0.2) K/mcL PT 13.5 H (9.4-12.1) Seconds INR 1.2 APTT 36.0 (26.0-36.0) Seconds Sodium (136-145) mEq/L Potassium (3.5-4.5) mEq/L Chloride (98-109) mEq/L Carbon Dioxide (19-29) mEq/L BUN (7-20) mg/dL Creatinine (0.57-1.11) mg/dL Est GFR ( Amer) (> 60) Est GFR (Non-Af Amer) (> 60) BUN/Creatinine Ratio (6-26) Glucose (70-99) mg/dL Calculated Osmolality (280-300) Calcium (8.6-10.8) mg/dL Troponin I (0-0.03) ng/mL B-Natriuretic Peptide 240 H (0-100) pg/mL 01/03/17 01/03/17 Range/Units 06:35 06:35 WBC (4.3-11.1) K/mcL RBC (3.82-4.97) M/mcL Hgb (11.5-15.4) g/dL Hct (35.3-44.9) % MCV (83.0-100.0) fL MCH (28.0-33.3) pg MCHC (31.6-35.5) g/dL RDW (11.5-14.5) % Plt Count (140-400) K/mcL MPV (9.4-12.4) fL Immature Gran % (0-4) % Seg Neutrophils % % Lymphocytes % % Monocytes % % Eosinophils % % Basophils % % Neutrophils # (1.6-8.9) K/mcL Lymphocytes # (0.6-4.6) K/mcL Monocytes # (0.0-1.3) K/mcL Eosinophils # (0.0-0.6) K/mcL Basophils # (0.0-0.2) K/mcL PT (9.4-12.1) Seconds INR APTT (26.0-36.0) Seconds Sodium 141 (136-145) mEq/L Potassium 3.8 (3.5-4.5) mEq/L Chloride 104 (98-109) mEq/L Carbon Dioxide 34 H (19-29) mEq/L BUN 26 H (7-20) mg/dL Creatinine 1.34 H (0.57-1.11) mg/dL Est GFR ( Amer) 45 L (> 60) Est GFR (Non-Af Amer) 37 L (> 60) BUN/Creatinine Ratio 19 (6-26) Glucose 97 (70-99) mg/dL Calculated Osmolality 297 (280-300) Calcium 8.9 (8.6-10.8) mg/dL Troponin I 0.02 (0-0.03) ng/mL B-Natriuretic Peptide (0-100) pg/mL - Radiology Data Radiology results reviewed: Yes I reviewed the patient's radiology results. Chest X-Ray 01/03/17 06:17 IMPRESSION: COPD with cardiomegaly. D/ / Jose Roberto Kevin MD / Jose Roberto Kevin MD Interpreting Provider: Jose Roberto Kevin MD - EKG Data EKG attestation: Yes I reviewed and interpreted this EKG. EKG results narrative: EKG reviewed by Dr. Roth as well. EKG shows a sinus rhythm at a rate of 67 bpm. DE interval 154, QRS duration 101, QT/QTC intervals 393/409. No ectopy noted. No STEMI. Heart Score - Score History: Highly Suspicious EKG: Normal Age: Greater than 65 Risk Factors: 1-2 risk factors Troponin: Less than normal limit HEART Score Total: 5
[2017-01-03 06:52] LABS: INR 1.2; Prothrombin Time 13.5 Seconds (9.4-12.1)
[2017-01-03 06:54] LABS: Calcium 8.9 mg/dL (8.6-10.8); Potassium 3.8 mEq/L (3.5-4.5)
[2017-01-03 06:58] LABS: Basophils % 0.5 %; Eosinophils # 0.1 K/mcL (0.0-0.6); Eosinophils % 1.5 %; Hematocrit 33.7 % (35.3-44.9); Hemoglobin 9.9 g/dL (11.5-15.4); Immature Granulocytes % 1.2 % (0-4); Lymphocytes # 1.1 K/mcL (0.6-4.6); Lymphocytes % 13.4 %; Mean Corpuscular HGB Conc 29.4 g/dL (31.6-35.5); Mean Corpuscular Hemoglobin 22.8 pg (28.0-33.3); Mean Corpuscular Volume 77.6 fL (83.0-100.0); Mean Platelet Volume 8.6 fL (9.4-12.4); Monocytes # 0.9 K/mcL (0.0-1.3); Monocytes % 11.7 %; Neutrophils # 5.7 K/mcL (1.6-8.9); Platelet Count 265 K/mcL (140-400); Red Blood Count 4.34 M/mcL (3.82-4.97); Red Cell Distribution Width 18.2 % (11.5-14.5); Segmented Neutrophils % 71.7 %
--- NOTE | 2017-01-03 07:49 | Emergency Department Note ---
START Narrative - START START: I examined this patient and my medical decision-making was reviewed with the CONFERENCE ORGANIZER/PA/Advanced Practice Nurse/Resident Physician. I agree with the documented findings, disposition and treatment plan as described except to the extent set forth below. I did see the patient spoke with her and examined her. Chest pressure which started at 4:00 this morning radiating to the jaw. No radiation to the back. No pleuritic aspect. The patient has a history of cardiac disease. I reviewed the labs. Her chest discomfort is improved but is ongoing and the second EKG will be done. Patient will be admitted to the hospital. She is bright and alert and color is good and in no distress at this time. 0750 I did review both EKGs the first was done at 623 sewing a normal sinus rhythm with rate of 67 without acute ischemic changes and repeat EKG with significant improvement discomfort was at 8:00 showing normal sinus rhythm with a rate of 67 without acute ischemic change 0812
[2017-01-03 08:01] LABS: Bilirubin,Urine Negative (Negative); Blood,Urine Negative (Negative); Clarity,Urine Clear (Clear); Color,Urine Yellow (Yellow); Glucose,Urine (UA) Normal (Normal); Ketones,Urine Negative (Negative); Leukocyte Esterase,Urine Negative (Negative); Nitrite,Urine Negative (Negative); PH,Urine 7.5 pH Units (5.0-8.0); Protein,Urine Negative (Neg-Trace); Specific Gravity,Urine 1.009 (1.010-1.025); Urobilinogen,Urine Normal (Normal)
[2017-01-03] MEDS ORDERED: Ondansetron 4 MG/2 ML VIAL IVP PRN (11:16)
[2017-01-03] MEDS ORDERED: Naloxone 0.4 MG/ML INJ IVP PRN (11:16)
[2017-01-03] MEDS ORDERED: *HR* OxyCODONE/APAP 5/325 TABLET PO PRN (11:18)
--- NOTE | 2017-01-03 11:24 | Internal Med History&Physical ---
Date of Encounter: 01/03/17 Time of Encounter: 11:22 Assessment and Plan (1) Chest pain Current visit: Yes Status: Acute Likely stable angina. However given patient's cardiac history, we will consult cardiology for possible intervention this time. We will resume patient's home medications. Echocardiogram and stress test will not be repeated unless requested by cardiology. Continue patient's home dose of aspirin, Lipitor, nitrates and beta blockers. Qualifiers: Chest pain type: other chest pain Qualified Code(s): R07.89 - Other chest pain; R07.8 - Other chest pain (2) COPD (chronic obstructive pulmonary disease) Current visit: Yes Status: Chronic Prior history of COPD, patient is on chronic steroid therapy possibly for her rheumatoid arthritis, however patient states she does not know why she is on prednisone 30 mg At this time she is not in COPD exacerbation. Continue home MDIs, Leo prn Continue prednsone at home dose Qualifiers: COPD type: unspecified COPD Qualified Code(s): J44.9 - Chronic obstructive pulmonary disease, unspecified (3) Atrial fibrillation Current visit: Yes Status: Chronic Rate is controlled, continue home meds On Xarelto, continue same Qualifiers: Atrial fibrillation type: chronic Qualified Code(s): I48.2 - Chronic atrial fibrillation (4) Diastolic CHF Current visit: Yes Status: Acute Patient with echocardiographic findings of mild left ventricular diastolic dysfunction At time of examination she has bilateral basilar crackles, and bilateral lower extremity edema. BNP is 240. Patient is on home Lasix 20 mg by mouth daily We will give IV Lasix 40 mg daily We will continue to monitor intake and output strictly Daily weights strictly Fluid restriction to 1200 mL daily. Continue close monitoring. Qualifiers: Congestive heart failure chronicity: acute on chronic Qualified Code(s): I50.33 - Acute on chronic diastolic (congestive) heart failure (5) CKD (chronic kidney disease) stage 3, GFR 30-59 ml/min Current visit: Yes Status: Chronic Renal function is at baseline, creatinine is stable. Continue to monitor. (6) Hyperlipidemia Current visit: Yes Status: Chronic Continue home dose of Lipitor. Qualifiers: Hyperlipidemia type: pure hypercholesterolemia Qualified Code(s): E78.00 - Pure hypercholesterolemia, unspecified; E78.0 - Pure hypercholesterolemia (7) Hypertension Current visit: Yes Status: Chronic Pressure is controlled, to continue home medications. Qualifiers: Hypertension type: essential hypertension Qualified Code(s): I10 - Essential (primary) hypertension Internal Medicine - H&P: HPI Chief complaint: Shortness of breath Admitted From: Home Plans for Post Hospital Care: Home History of present illness: Ms. Thomas is a 86 year old female Patient is seen and evaluated at the bedside. This is a pleasant 81-year-old female with past medical history of coronary artery disease status post CABG about 20 years ago, atrial fibrillation on Xarelto and aspirin, chronic kidney disease stage III, rheumatoid arthritis, hyperlipidemia, hypertension, osteoporosis, COPD Patient presents with sudden shortness of breath which she states has been present for about a month but worse overnight. She also reports chest pain substernal, located on the left side of the chest, radiating to her jaw and left arm. She presented to the ER because she lives alone, and was scared of a cardiac The patient was recently admitted and discharged on December 06 with similar symptoms which was managed medically at that time by increasing the dose of Imdur from 60-90 mg daily. At time of review, patient was seen well came to have bed from the bathroom, mildly short of breath, denies chest pain at that time. She reports compliance with her medications, and dietary restrictions. She reports she has not been able to make an appointment with her primary physician despite her symptoms going on for about a month. She reports associated worsening lower extremity edema is bilaterally. She denies constipation. She denies recent travels, she denies cough, she denies nausea vomiting or diarrhea. She has no abdominal, neurological, or genitourinary symptoms. I discussed with the patient about advanced directives, patient reports she has no relatives, she has a friendly neighbor who takes care of her , she has no power of senior trial attorney, at this time she remains full code. During her last admission echocardiogram done showed ejection fraction 65-70%, with atypical septal motion indicated with previous CABG, mild left ventricular diastolic dysfunction, mild aortic stenosis, mild tricuspid regurgitation and pulmonary hypertension. However patient had stress test in August 2016 that showed a small medium sized reversible perfusion defect in the basal/mid inferior wall consistent with reversible myocardial ischemia. Also note EMR reveals cardiology saw patient in the last admission and she elected to discuss this with catheterization with her primary physician. She will be admitted and managed for CHF exacerbation with fluid overload, and chest pain rule out ACS. Past Med Surg Social Fam HX - Past Medical History Medical history: arthritis, atrial fibrillation, hyperlipidemia, hypertension, RA Psychiatric history: no psych history - Past Surgical History Surgical History: cataract, coronary bypass (CABG), orthopedic, other - Social History Smoking Status: Never smoker Smokeless Tobacco Status: No Alcohol use: none Drug use: none - Family History Father Family Member Ethnicity: Non- Living Status: Hx Family Cardiac Disorders: Yes ([place]) Hx Family Respiratory Disorders: No Hx Family Cancer: No Hx Family GI Disorders: No Hx Family Endocrine Disorder: No Hx Family Neuromuscular Disorders: No Hx Family Neurologic Disorders: No Hx Family HEENT Disorders: No Hx Family Autoimmune Disorders: No Mother Family Member Ethnicity: Non- Living Status: Hx Family Cardiac Disorders: Yes (Stroke) Internal Medicine - H&P: Meds Aspirin 81 mg PO DAILY 05/07/15 [History] Atorvastatin [Lipitor] 40 mg PO HS 05/07/15 [History] Calcitonin Nasal [place] [Miacalcin Nasal [place]] 1 spray NS DAILY 05/07/15 [ History] Diltiazem CD (24hr) [Cardizem CD] 240 mg PO DAILY 05/07/15 [History] Rivaroxaban [Xarelto] 15 mg PO DAILY 05/07/15 [History] Vitamin B Complex [B Complex] 1 tab PO DAILY 05/07/15 [History] Budesonide/Formoterol Fumarate [Symbicort 80-4.5 Mcg Inhaler] 1 puff IH DAILY [History] Cholecalciferol (Vitamin D3) [Vitamin D3] 2,000 unit PO DAILY 11/14/15 [History] Multivitamin [Multi-Day Vitamins] 1 tab PO DAILY 11/14/15 [History] TraZODone 50 mg PO HS 11/14/15 [History] Furosemide [Lasix] 20 mg PO DAILY 12/05/16 [History] Isosorbide MONOnitrate (24 HR) [Imdur] 90 mg PO DAILY 12/05/16 [History] Nitroglycerin [Nitrostat] 0.4 mg SL Q5M PRN 12/05/16 [History] Oxycodone HCl/Acetaminophen [Percocet 5-325 mg Tablet] 1 tab PO Q6H PRN [History] predniSONE [PredniSONE] 30 mg PO DAILY 12/05/16 [History] Allergies clindamycin Allergy (Verified 11/14/15 16:39) See Comments c diff acetaminophen [From Vicodin] Adverse Reaction (Verified 11/14/15 16:39) Nausea hydrocodone [From Vicodin] Adverse Reaction (Verified 11/14/15 16:39) Nausea renexa Allergy (Uncoded 12/20/15 10:24) Rash All Systems PM: A 10-system review of systems was performed and is negative for pertinent findings except as documented above in the HPI. - Constitutional Constitutional: no chills, no fever(s), no night sweats - EENT Eyes: no change in vision, no discharge, no pain, no photophobia Ears: no ear discharge, no ear pain, no tinnitus Nose, mouth and throat: no dysphagia, no nasal discharge, no neck pain, no sore throat - Cardiovascular Cardiovascular ROS IM: as per HPI - Respiratory Respiratory: as per HPI - Gastrointestinal Gastrointestinal: as per HPI - Genitourinary Genitourinary: as per HPI - Musculoskeletal Musculoskeletal ROS IM: as per HPI - Integumentary Integumentary IM: as per HPI - Neurological Neurological ROS: as per HPI - Psychiatric Psychiatric: as per HPI - Hematologic/Lymphatic Hematologic/Lymphatic: as per HPI - Constitutional Vitals: Temp Pulse Resp BP Pulse Ox 98.3 F 82 16 158/89 95 01/03/17 08:47 01/03/17 08:47 01/03/17 08:47 01/03/17 08:47 01/03/17 08:47 Gen: VSS, not in distress, she speaks full sentences. HEENT: He has a more like facies, she is not cyanotic, her conjunctiva is not pale. Chest: Bibasilar crackles, no chest wall tenderness. Heart: S1, S2, loud systolic normal at the apex, aortic stenosis murmur no gallops. Abdomen: Abdomen is soft but distended in the suprapubic region, no palpable masses, bowel sounds are present in all quadrants. Extremities: Bilateral pitting pedal edema 3+ up to the chase. No cough tenderness. No visible ulcers. Internal Med - H&P Results - Labs CBC & Chem 7: 01/03/17 06:35 01/03/17 06:35
[2017-01-03] MEDS ORDERED: Furosemide 40 MG/4 ML VIAL IVP SCH (11:30)
--- NOTE | 2017-01-03 12:34 | Cardiology Consult Note ---
Date of Encounter: 01/03/17 Time of Encounter: 12:15 Assessment and Plan (1) Chest pain Current Visit: Yes Status: Acute Symptoms consistent with angina; reports now at baseline. Troponin negative, no ischemic ECG changes. Hx of CAD, most recent LHC showed 0 of 3 bypass grafts with good collaterals-- medical management recommended. Recent follow-up in the outpatient setting, [facility] films were reviewed again and medical management recommended. TTE November 2016 shows preserved LVEF 65-70% with normal wall motion. Recommend medical management, will increase imdur to 120 mg daily. Allergy to ranexa. Patient agrees as she is not interested in [facility]. Continue to cycle troponin, continue asa, statin, and CCB. Qualifiers: Chest pain type: chest pain due to myocardial ischemia Ischemic chest pain type: stable angina pectoris Qualified Code(s): I20.8 - Other forms of angina pectoris (2) Atrial fibrillation Current Visit: Yes Status: Chronic Hx of PAF; anticoagulated on Xarelto (renal dose). Continue CCB. SR upon exam. Qualifiers: Atrial fibrillation type: paroxysmal Qualified Code(s): I48.0 - Paroxysmal atrial fibrillation Discussion w patient/family: The assessment and plan as outlined above was discussed with the patient and/or family members who expressed understanding and agreement. All questions were answered. Thank you for involving us in the care of your patient. Please call with any questions. The patient will be discussed and reviewed with Dr. Mir; changes to be made accordingly. History of Present Illness Consult date: 01/03/17 Requesting physician: Iván Gaxiola Consult reason: Chest pain Chief complaint: Chest pressure History of present illness: Ms. Thomas is a 86 year old female with PMHx significant for CAD s/p 3vCABG (1993 ), HTN, CKD III, mild aortic stenosis, MR, PAF (Xarelto), RA (chronic steroids) for anticoagulation who presented to the ED via EMS due to severe chest pressure with radiation to neck and head; reports pain stared at 4AM and woke her from sleeping. She took x2 NTG tablets which did not alleviate pain. Reports pain improved in sqaud with NTG and oxygen. Reports constant chest and head pressure for the past several years; however severity worsened this AM. Associated symptoms include mild increase in LE (L>R) edema over the past 2 weeks. Upon arrival to ED, initial troponin was negative. No ECG changes noted. Prior CV testing: TTE 06/01/14: LVEF 60%, moderate diastolic dysfunction, normal RV, mild MR, RVSP 43 LHC 06/02/14: LVEF 65%, 0 of 3 patent bypass grafts, good quality collateral vessel/vessels from the Left to the Right Regadenoson nuclear 08/28/16: mild chest pain with regadenoson, LVEF > 70%, small-medium sized, moderate intensity, reversible perfusion defect in the basal -mid inferior wall consistent with ischemia. TTE 08/28/16: LVEF 65%, mild LVH, mild diastolic dysfunction, normal RV, mild , mild MR, mild TR, normal RVSP. TTE 12/06/16: LVEF 65-70%, mild LVDD, mild , mild TR, mild PH, normal wall motion Past Med Surg Social Fam HX - Past Medical History Attestation: Yes The following information was validated with the patient. Source: patient, old records reviewed Medical history: arthritis, atrial fibrillation, coronary artery disease, hyperlipidemia, hypertension, RA Psychiatric history: no psych history - Past Surgical History Surgical History: cataract, coronary bypass (CABG), orthopedic, other - Social History Smoking Status: Never smoker Smokeless Tobacco Status: No Alcohol use: none Drug use: none - Family History Father Family Member Ethnicity: Non- Living Status: Hx Family Cardiac Disorders: Yes ([place]) Hx Family Respiratory Disorders: No Hx Family Cancer: No Hx Family GI Disorders: No Hx Family Endocrine Disorder: No Hx Family Neuromuscular Disorders: No Hx Family Neurologic Disorders: No Hx Family HEENT Disorders: No Hx Family Autoimmune Disorders: No Mother Family Member Ethnicity: Non- Living Status: Hx Family Cardiac Disorders: Yes (Stroke) Medications and Allergies Aspirin 81 mg PO DAILY 05/07/15 [History] Atorvastatin [Lipitor] 40 mg PO HS 05/07/15 [History] Calcitonin Nasal [place] [Miacalcin Nasal [place]] 1 spray NS DAILY 05/07/15 [ History] Diltiazem CD (24hr) [Cardizem CD] 240 mg PO DAILY 05/07/15 [History] Rivaroxaban [Xarelto] 15 mg PO DAILY 05/07/15 [History] Vitamin B Complex [B Complex] 1 tab PO DAILY 05/07/15 [History] Budesonide/Formoterol Fumarate [Symbicort 80-4.5 Mcg Inhaler] 1 puff IH DAILY [History] Cholecalciferol (Vitamin D3) [Vitamin D3] 2,000 unit PO DAILY 11/14/15 [History] Multivitamin [Multi-Day Vitamins] 1 tab PO DAILY 11/14/15 [History] TraZODone 50 mg PO HS 11/14/15 [History] Furosemide [Lasix] 20 mg PO DAILY 12/05/16 [History] Isosorbide MONOnitrate (24 HR) [Imdur] 90 mg PO DAILY 12/05/16 [History] Nitroglycerin [Nitrostat] 0.4 mg SL Q5M PRN 12/05/16 [History] Oxycodone HCl/Acetaminophen [Percocet 5-325 mg Tablet] 1 tab PO Q6H PRN [History] predniSONE [PredniSONE] 30 mg PO DAILY 12/05/16 [History] Allergies clindamycin Allergy (Verified 11/14/15 16:39) See Comments c diff acetaminophen [From Vicodin] Adverse Reaction (Verified 11/14/15 16:39) Nausea hydrocodone [From Vicodin] Adverse Reaction (Verified 11/14/15 16:39) Nausea renexa Allergy (Uncoded 12/20/15 10:24) Rash All Systems Review: A 10-system review of systems was performed and is negative for pertinent findings except as documented above in the HPI. - Cardiovascular Cardiovascular: as per HPI Physical Examination Vital Signs, Last 4 Hours Temp Pulse Resp BP Pulse Ox 01/03/17 12:08 98.4 F 156/85 01/03/17 10:44 98.1 F 87 16 161/89 96 01/03/17 08:47 98.3 F 82 16 158/89 95 General: Conversant, No Apparent Distress HEENT: Atraumatic Cardiac: Reg Rate and Rhythm, Normal S1 and S2 Lungs: Normal Breath Sounds Neuro: Alert and responsive Abdomen: Soft Skin: No rashes noted on visualized skin Musculoskeletal: No Chest Wall Tenderness Extremities: Normal Pulses, Other (mild BLE, +1 pitting edema LLE) Results 01/03/17 06:35 01/03/17 06:35 - Imaging and Cardiology Stress Test: report reviewed Echo: report reviewed Cardiac cath: report reviewed - EKG Interpretation EKG results cardiology: personally reviewed Consult Discharge Plan - Plan Referrals: Tyler Sharma Jr, MD [Primary Care Provider] -
--- NOTE | 2017-01-03 15:42 | Electrocardiograph Report ---
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
--- NOTE | 2017-01-03 15:46 | Electrocardiograph Report ---
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
--- NOTE | 2017-01-03 15:50 | Electrocardiograph Report ---
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
[2017-01-03] MEDS: *HR* Rivaroxaban 15 MG TABLET PO SCH (17:32)
[2017-01-03] MEDS: Diltiazem CD (24hr) 240 MG CAPSULE PO SCH (17:33)
[2017-01-03] MEDS: Furosemide 40 MG/4 ML VIAL IVP SCH (17:33)
[2017-01-03] MEDS: Isosorbide MONOnitrate (24 HR) 60 MG TAB.ER.24H PO SCH (17:33)
[2017-01-03] MEDS: traZODone 50 MG TABLET PO SCH (21:41)
[2017-01-04 01:13] LABS: Basophils # 0.1 K/mcL (0.0-0.2); Basophils % 0.7 %; Eosinophils # 0.3 K/mcL (0.0-0.6); Eosinophils % 3.8 %; Hematocrit 32.9 % (35.3-44.9); Hemoglobin 9.7 g/dL (11.5-15.4); Immature Granulocytes % 0.6 % (0-4); Lymphocytes # 1.2 K/mcL (0.6-4.6); Lymphocytes % 14.4 %; Mean Corpuscular HGB Conc 29.5 g/dL (31.6-35.5); Mean Corpuscular Hemoglobin 22.7 pg (28.0-33.3); Mean Corpuscular Volume 76.9 fL (83.0-100.0); Mean Platelet Volume 8.8 fL (9.4-12.4); Monocytes # 0.9 K/mcL (0.0-1.3); Monocytes % 11.6 %; Neutrophils # 5.6 K/mcL (1.6-8.9); Platelet Count 267 K/mcL (140-400); Red Blood Count 4.28 M/mcL (3.82-4.97); Red Cell Distribution Width 18.3 % (11.5-14.5); Segmented Neutrophils % 68.9 %
[2017-01-04 01:23] LABS: Albumin 2.9 g/dL (3.5-5.0); Albumin/Globulin Ratio 1.3 (1.1-2.2); Bilirubin,Total 0.5 mg/dL (0.2-1.2); Calcium 8.3 mg/dL (8.6-10.8); Globulin 2.3 g/dL (2.4-3.5); Potassium 3.4 mEq/L (3.5-4.5); Total Protein 5.2 g/dL (6.0-8.3)
[2017-01-04] MEDS: Budesonide/Formoterol 80/4.5 MDI IH SCH (08:03)
[2017-01-04] MEDS ORDERED: Isosorbide MONOnitrate (24 HR) 60 MG TAB.ER.24H PO SCH (09:00)
[2017-01-04] MEDS: *HR* Rivaroxaban 15 MG TABLET PO SCH (09:53)
[2017-01-04] MEDS: Diltiazem CD (24hr) 240 MG CAPSULE PO SCH (09:53)
[2017-01-04] MEDS: Cholecalciferol (D-3) 1,000 UNIT TABLET PO SCH (09:53)
[2017-01-04] MEDS: Vitamin B Complex/Vit C/Vit E 1 EACH TABLET PO SCH (09:53)
[2017-01-04] MEDS: Furosemide 40 MG/4 ML VIAL IVP SCH ×2 (09:53→17:55)
[2017-01-04] MEDS: Isosorbide MONOnitrate (24 HR) 60 MG TAB.ER.24H PO SCH (09:53)
[2017-01-04] MEDS: Aspirin 81 MG TAB.CHEW PO SCH (09:54)
[2017-01-04] MEDS: predniSONE 20 MG TABLET PO SCH (09:54)
[2017-01-04] MEDS: Multivit/Ca/Min/Fe/FA 1 TAB TABLET PO SCH (09:54)
[2017-01-04] MEDS: CALCITONIN NS SCH (09:54)
--- NOTE | 2017-01-04 10:38 | Cardiology Progress Note ---
Date of Encounter: 01/04/17 Time of Encounter: 10:30 Assessment and Plan (1) Chest pain Current Visit: Yes Status: Acute Symptoms consistent with angina; reports now at baseline. Troponin negative, no ischemic ECG changes. Hx of CAD, most recent C showed 0 of 3 bypass grafts with good collaterals-- medical management recommended. Recent follow-up in the outpatient setting, [facility] films were reviewed again and medical management recommended. TTE November 2016 shows preserved LVEF 65-70% with normal wall motion. Recommend medical management, will increase imdur to 120 mg daily. Allergy to ranexa. Patient agrees as she is not interested in [facility]. Continue asa, statin, and CCB. No further inpatient recommendations, will sign-off. Please call with questions. Will coordinate outpt appt. Qualifiers: Chest pain type: chest pain due to myocardial ischemia Ischemic chest pain type: stable angina pectoris Qualified Code(s): I20.8 - Other forms of angina pectoris (2) Atrial fibrillation Current Visit: Yes Status: Chronic Hx of PAF; anticoagulated on Xarelto (renal dose). Continue CCB. SR upon exam. Qualifiers: Atrial fibrillation type: paroxysmal Qualified Code(s): I48.0 - Paroxysmal atrial fibrillation (3) Diastolic CHF Current Visit: Yes Status: Acute Known hx of diastolic CHF with preserved LV function. Lasix increased to 40 mg IV BID--SCr improved, LE improved. Recommend additional 24 hours, then transition to po lasix by discharge. Hypoalbuminemia noted which could also be contributing to LE edema, recommend ensure BID. She reports poor appetite at home. Qualifiers: Congestive heart failure chronicity: acute on chronic Qualified Code(s): I50.33 - Acute on chronic diastolic (congestive) heart failure Discussion w patient/family: The assessment and plan as outlined above was discussed with the patient and/or family members who expressed understanding and agreement. All questions were answered. Thank you for involving us in the care of your patient. Please call with any questions. The patient will be discussed and reviewed with Dr. iMr; changes to be made accordingly. Subjective Principal diagnosis: Chest pain, Diastolic dysfunction Interval history: Seen and examined. Patient reports chest pain at baseline. Continues to have LE edema, however slightly improved this AM. She has no other complaints this AM upon exam. Objective Vital Signs, Last 4 Hours Temp Pulse Resp BP Pulse Ox 01/04/17 08:05 16 91 01/04/17 07:33 98.9 F 73 14 110/66 92 General: Conversant, No Apparent Distress HEENT: Atraumatic, Normocephaly, Mucus Membranes Moist Cardiac: Reg Rate and Rhythm, Normal S1 and S2 Lungs: Normal Breath Sounds Neuro: Alert and responsive Abdomen: Soft Skin: No rashes noted on visualized skin Musculoskeletal: No Chest Wall Tenderness Extremities: Other (BLE, +1-2, L>R) Results 01/04/17 00:42 01/04/17 00:42 Lab Results 01/03/17 01/03/17 01/04/17 12:14 18:16 00:42 WBC Hgb Hct Plt Count Sodium Potassium Chloride Carbon Dioxide BUN Creatinine Glucose Calcium Total Bilirubin AST ALT Alkaline Phosphatase Troponin I 0.03 0.04 H* 0.03 01/04/17 01/04/17 00:42 00:42 WBC 8.1 Hgb 9.7 L Hct 32.9 L Plt Count 267 Sodium 141 Potassium 3.4 L Chloride 102 Carbon Dioxide 33 H BUN 24 H Creatinine 1.23 H Glucose 82 Calcium 8.3 L Total Bilirubin 0.5 AST 14 ALT 12 Alkaline Phosphatase 45 Troponin I - Imaging and Cardiology Echo: report reviewed Cardiac cath: report reviewed - EKG Interpretation EKG results cardiology: personally reviewed Consult Discharge Plan - Plan Referrals: Tyler Sharma Jr, MD [Primary Care Provider] -
--- NOTE | 2017-01-04 14:38 | Internal Med Progress Note ---
<Nico Almanza - Last Filed: 01/04/17 14:56> Date of Encounter: 01/04/17 Time of Encounter: 08:35 - Assessment and plan (1) CAD (coronary artery disease) Current Visit: Yes Status: Acute Assessment and plan: -Severe chest pain with radiation into neck and left shoulder, woken from sleep -Hx of CAD, most recent LHC showed 0 of 3 bypass grafts with good collaterals-- medical management recommended per cardiology. -TTE November 2016 shows preserved LVEF 65-70% with normal wall motion. -Troponins are adynamic. CXR shows COPD/Emphysema w/ cardiomegaly. EKG is sinus -Patient says that her father of a myocardial infarction in his sleep and she is very concerned and will happen her. -Cardio recommends increasing Imdur to 120mg daily, continue aspirin, statin, CCB. -Patient is on cardiac monitoring. Will continue to watch. Qualifiers: Coronary Disease-Associated Artery/Lesion type: bypass graft, autologous artery Associated angina: without angina Qualified Code(s): I25.810 - Atherosclerosis of coronary artery bypass graft(s) without angina pectoris (2) Diastolic CHF Current Visit: Yes Status: Acute Assessment and plan: -TTE in November 2016 shows preserved left ventricular ejection fraction of 65-70% with normal wall motion. -BNP 240, serum creatinine 1.23 -Chest x-ray shows COPD with cardiomegaly and emphysema. -Clinically the patient matches a description of congestive heart failure with preserved left ventricular ejection fraction. -Cardiology recommends medical management at this time. Patient is not interested in catheterization. -Cardiology recommends Lasix increased to 40 mg IV twice a day, we will switch back to by mouth Lasix at discharge. -Continue aspirin, statin, CCB. Qualifiers: Congestive heart failure chronicity: acute on chronic Qualified Code(s): I50.33 - Acute on chronic diastolic (congestive) heart failure (3) Atrial fibrillation Current Visit: Yes Status: Chronic Assessment and plan: The patient has a history of paroxysmal atrial fibrillation and is anticoagulated on Xarelto. She is appropriately rate controlled on calcium channel timo. Qualifiers: Atrial fibrillation type: paroxysmal Qualified Code(s): I48.0 - Paroxysmal atrial fibrillation (4) DVT prophylaxis Current Visit: No Status: Acute Assessment and plan: -Patient is experiencing unilateral edema to the left leg which is also warm to the touch and painful. Given these symptoms we will order a bilateral Doppler ultrasound of the legs to rule out DVT. -The patient is anticoagulated with Xarelto at this time, however she is renally dosed at 15 mg. (5) Chest pain Current Visit: Yes Status: Acute Qualifiers: Chest pain type: chest pain due to myocardial ischemia Ischemic chest pain type: stable angina pectoris Qualified Code(s): I20.8 - Other forms of angina pectoris - Subjective Interval history: The patient is resting comfortably in bed at the time of the examination and is in no acute distress. She says that her chest pain has pretty much resolved at this point she is no longer experiencing all. She does complain of some pain in her right axilla which started around the same time her chest pain started last night. - Constitutional Vitals: Temp Pulse Resp BP Pulse Ox 97.7 F 84 14 100/65 97 01/04/17 11:50 01/04/17 11:50 01/04/17 11:50 01/04/17 11:50 01/04/17 11:50 - Head Head exam: Present: atraumatic, normocephalic - Eye Eye exam: Present: PERRL, conjuntiva pink, sclera anicteric Pupils: Present: PERRL - Neck Neck exam general surgery: Present: supple, trachea midline. Absent: lymphadenopathy - Respiratory Respiratory exam: Present: CTAB. Absent: accessory muscle use, rales, rhonchi, wheezes - Cardiovascular Cardiovascular exam: Present: RRR, +S1, +S2, systolic murmur. Absent: diastolic murmur, gallop, rubs Additional comments: 4/6 crescendo-decrescendo murmur heard beat over the upper left sternal border consistent with documented history of aortic stenosis - GI/Abdominal GI/Abdominal exam: Present: normal bowel sounds, soft, no peritoneal signs. Absent: distended, tenderness - Extremities Exam Extremities exam: Present: joint swelling, pedal edema, tenderness, warm, radial pulses palpable and symetrical. Absent: calf tenderness, cyanotic Additional comments: [place]-neck deformities found in both hands. -Unilateral edema noted in the Left lower extremity up to the knee. Tenderness to palpation of posterior calf. Warmness to touch present. - Neurological Exam Neurological exam: Present: CN II-XII intact, oriented X3, no focal deficits. Absent: pronater drift, facial droop, speech deficit - Skin Skin exam: Present: dry, intact Internal Medicine: Result - Labs CBC & Chem 7: 01/04/17 00:42 01/04/17 00:42 Labs: Short CBC 01/04/17 Range/Units 00:42 WBC 8.1 (4.3-11.1) K/mcL Hgb 9.7 L (11.5-15.4) g/dL Hct 32.9 L (35.3-44.9) % Plt Count 267 (140-400) K/mcL Neutrophils # 5.6 (1.6-8.9) K/mcL BMP 01/04/17 00:42 Sodium 141 Potassium 3.4 L Chloride 102 Carbon Dioxide 33 H BUN 24 H Creatinine 1.23 H Glucose 82 Calcium 8.3 L Cardiac Enzymes 01/03/17 01/04/17 Range/Units 18:16 00:42 Troponin I 0.04 H* 0.03 (0-0.03) ng/mL Liver Function 01/04/17 Range/Units 00:42 Total Bilirubin 0.5 (0.2-1.2) mg/dL AST 14 (5-34) Units/L ALT 12 (0-55) Units/L Alkaline Phosphatase 45 (38-126) Units/L Albumin 2.9 L (3.5-5.0) g/dL - ABG Interpretation ABG results: PT/INR, D-dimer PT 13.5 Seconds (9.4-12.1) H 01/03/17 06:35 Consult Discharge Plan - Plan Referrals: Tyler Sharma Jr, MD [Primary Care Provider] - <Calixto Flores P - Last Filed: 01/04/17 17:29> Date of Encounter: 01/04/17 - Constitutional Vitals: Temp Pulse Resp BP Pulse Ox 98.8 F 83 14 96/58 93 01/04/17 15:54 01/04/17 15:54 01/04/17 15:54 01/04/17 15:54 01/04/17 15:54 Internal Medicine: Result - Labs CBC & Chem 7: 01/04/17 00:42 01/04/17 00:42 Labs: Short CBC 01/04/17 Range/Units 00:42 WBC 8.1 (4.3-11.1) K/mcL Hgb 9.7 L (11.5-15.4) g/dL Hct 32.9 L (35.3-44.9) % Plt Count 267 (140-400) K/mcL Neutrophils # 5.6 (1.6-8.9) K/mcL BMP 01/04/17 00:42 Sodium 141 Potassium 3.4 L Chloride 102 Carbon Dioxide 33 H BUN 24 H Creatinine 1.23 H Glucose 82 Calcium 8.3 L Cardiac Enzymes 01/03/17 01/04/17 Range/Units 18:16 00:42 Troponin I 0.04 H* 0.03 (0-0.03) ng/mL Liver Function 01/04/17 Range/Units 00:42 Total Bilirubin 0.5 (0.2-1.2) mg/dL AST 14 (5-34) Units/L ALT 12 (0-55) Units/L Alkaline Phosphatase 45 (38-126) Units/L Albumin 2.9 L (3.5-5.0) g/dL - ABG Interpretation ABG results: PT/INR, D-dimer PT 13.5 Seconds (9.4-12.1) H 01/03/17 06:35 - Attending Attestation I examined this patient and my medical decision-making was reviewed with the Resident Physician. I agree with the documented findings, disposition and treatment plan as described except to the extent set forth below. will follow cardiology recommendations.
[2017-01-04] MEDS: traZODone 50 MG TABLET PO SCH (20:58)
[2017-01-05 01:28] LABS: Calcium 8.4 mg/dL (8.6-10.8)
[2017-01-05] MEDS: Furosemide 40 MG/4 ML VIAL IVP SCH ×2 (08:11→17:44)
[2017-01-05] MEDS: *HR* Rivaroxaban 15 MG TABLET PO SCH (08:12)
[2017-01-05] MEDS: Isosorbide MONOnitrate (24 HR) 60 MG TAB.ER.24H PO SCH (08:12)
[2017-01-05] MEDS: Vitamin B Complex/Vit C/Vit E 1 EACH TABLET PO SCH (08:12)
[2017-01-05] MEDS: Cholecalciferol (D-3) 1,000 UNIT TABLET PO SCH (08:12)
[2017-01-05] MEDS: Aspirin 81 MG TAB.CHEW PO SCH (08:12)
[2017-01-05] MEDS: Multivit/Ca/Min/Fe/FA 1 TAB TABLET PO SCH (08:12)
[2017-01-05] MEDS: Diltiazem CD (24hr) 240 MG CAPSULE PO SCH (08:12)
[2017-01-05] MEDS: predniSONE 20 MG TABLET PO SCH (08:13)
[2017-01-05] MEDS: CALCITONIN NS SCH (08:14)
[2017-01-05] MEDS: Budesonide/Formoterol 80/4.5 MDI IH SCH (08:59)
--- NOTE | 2017-01-05 17:48 | Internal Med Progress Note ---
Date of Encounter: 01/05/17 Time of Encounter: 17:45 - Assessment and plan (1) CAD (coronary artery disease) Current Visit: Yes Status: Acute Assessment and plan: Known to have a coronary artery disease. Has previous left heart catheterization and evaluated by cardiology during this admission. Cardiology recommended medical management. Discussed with the patient at length. Patient does not want any further intervention. Plan: Optimize medical management. Close follow-up with PCP Patient is alone by herself and may need a community help. Qualifiers: Coronary Disease-Associated Artery/Lesion type: bypass graft, autologous artery Associated angina: without angina Qualified Code(s): I25.810 - Atherosclerosis of coronary artery bypass graft(s) without angina pectoris (2) COPD (chronic obstructive pulmonary disease) Current Visit: Yes Status: Chronic Assessment and plan: She is on COPD. Currently her respiratory status is stable. Will continue home medication. Qualifiers: COPD type: unspecified COPD Qualified Code(s): J44.9 - Chronic obstructive pulmonary disease, unspecified (3) Hypertension Current Visit: Yes Status: Chronic Assessment and plan: Blood pressure is very well controlled and will continue the same medication. Patient has a advanced rheumatoid arthritis and she has a textbook picture deformity of her hand. Qualifiers: Hypertension type: essential hypertension Qualified Code(s): I10 - Essential (primary) hypertension (4) DVT prophylaxis Current Visit: No Status: Acute Assessment and plan: heparin Medical decision making: This patient has a moderate to severe risk of worsening in spite of being on appropriate medication due to underlying comorbid conditions. - Subjective Interval history: Seen and examined. Chart reviewed. Patient is comfortably sitting on the bed. Patient denies chest pain, shortness of breath, abdominal pain, nausea, vomiting and diarrhea. Patient has no family and it seems there will be an transport issue today if we discharge her. - Constitutional Vitals: Temp Pulse Resp BP Pulse Ox 98.1 F 82 15 109/71 96 01/05/17 17:42 01/05/17 17:42 01/05/17 17:42 01/05/17 17:42 01/05/17 17:42 General appearance: Present: A&O X 3, pleasant, no acute distress, answers questions appropriately - Head Head exam: Present: atraumatic, normocephalic - Eye Eye exam: Present: PERRL, conjuntiva pink, sclera anicteric Pupils: Present: PERRL - Neck Neck exam general surgery: Present: supple, trachea midline. Absent: lymphadenopathy - Respiratory Respiratory exam: Present: CTAB. Absent: accessory muscle use, rales, rhonchi, wheezes - Cardiovascular Cardiovascular exam: Present: RRR, +S1, +S2. Absent: diastolic murmur, gallop, rubs, systolic murmur - GI/Abdominal GI/Abdominal exam: Present: normal bowel sounds, soft, no peritoneal signs. Absent: distended, tenderness - Extremities Exam Extremities exam: Present: warm, radial pulses palpable and symetrical. Absent : calf tenderness, cyanotic, pedal edema - Neurological Exam Neurological exam: Present: CN II-XII intact, oriented X3, no focal deficits. Absent: pronater drift, facial droop, speech deficit - Skin Skin exam: Present: dry, intact Internal Medicine: Result - Labs CBC & Chem 7: 01/04/17 00:42 01/05/17 01:06 Labs: BMP 01/05/17 01:06 Sodium 141 Potassium 4.0 Chloride 101 Carbon Dioxide 35 H BUN 33 H Creatinine 1.47 H Glucose 106 H Calcium 8.4 L - ABG Interpretation ABG results: PT/INR, D-dimer PT 13.5 Seconds (9.4-12.1) H 01/03/17 06:35 Consult Discharge Plan - Plan Referrals: Tyler Sharma Jr, MD [Primary Care Provider] -
[2017-01-05] MEDS: traZODone 50 MG TABLET PO SCH (21:06)
[2017-01-06] MEDS: Aspirin 81 MG TAB.CHEW PO SCH (07:54)
[2017-01-06] MEDS: Multivit/Ca/Min/Fe/FA 1 TAB TABLET PO SCH (07:54)
[2017-01-06] MEDS: *HR* Rivaroxaban 15 MG TABLET PO SCH (07:54)
[2017-01-06] MEDS: Diltiazem CD (24hr) 240 MG CAPSULE PO SCH (07:54)
[2017-01-06] MEDS: predniSONE 20 MG TABLET PO SCH (07:54)
[2017-01-06] MEDS: Cholecalciferol (D-3) 1,000 UNIT TABLET PO SCH (07:54)
[2017-01-06] MEDS: Vitamin B Complex/Vit C/Vit E 1 EACH TABLET PO SCH (07:54)
[2017-01-06] MEDS: CALCITONIN NS SCH (07:55)
[2017-01-06] MEDS: Furosemide 40 MG/4 ML VIAL IVP SCH (07:55)
[2017-01-06] MEDS: Isosorbide MONOnitrate (24 HR) 60 MG TAB.ER.24H PO SCH (07:55)
[2017-01-06] MEDS: Budesonide/Formoterol 80/4.5 MDI IH SCH (08:31)
--- NOTE | 2017-01-06 11:01 | Discharge Summary ---
Date of Encounter: 01/06/17 Time of Encounter: 11:01 - Discharge Diagnosis (1) CAD (coronary artery disease) Priority: Primary Status: Acute Qualifiers: Coronary Disease-Associated Artery/Lesion type: bypass graft, autologous artery Associated angina: without angina Qualified Code(s): I25.810 - Atherosclerosis of coronary artery bypass graft(s) without angina pectoris (2) COPD (chronic obstructive pulmonary disease) Priority: Secondary Status: Chronic Qualifiers: COPD type: unspecified COPD Qualified Code(s): J44.9 - Chronic obstructive pulmonary disease, unspecified (3) Hypertension Priority: Secondary Status: Chronic Qualifiers: Hypertension type: essential hypertension Qualified Code(s): I10 - Essential (primary) hypertension (4) DVT prophylaxis Priority: Secondary Status: Acute - Discharge Medications Home Medications: Aspirin 81 mg PO DAILY 05/07/15 [History] Atorvastatin [Lipitor] 40 mg PO HS 05/07/15 [History] Calcitonin Nasal [place] [Miacalcin Nasal [place]] 1 spray NS DAILY 05/07/15 [ History] Diltiazem CD (24hr) [Cardizem CD] 240 mg PO DAILY 05/07/15 [History] Rivaroxaban [Xarelto] 15 mg PO DAILY 05/07/15 [History] Vitamin B Complex [B Complex] 1 tab PO DAILY 05/07/15 [History] Budesonide/Formoterol Fumarate [Symbicort 80-4.5 Mcg Inhaler] 1 puff IH DAILY [History] Cholecalciferol (Vitamin D3) [Vitamin D3] 2,000 unit PO DAILY 11/14/15 [History] Multivitamin [Multi-Day Vitamins] 1 tab PO DAILY 11/14/15 [History] TraZODone 50 mg PO HS 11/14/15 [History] Furosemide [Lasix] 20 mg PO DAILY 12/05/16 [History] Isosorbide MONOnitrate (24 HR) [Imdur] 90 mg PO DAILY 12/05/16 [History] Nitroglycerin [Nitrostat] 0.4 mg SL Q5M PRN 12/05/16 [History] Oxycodone HCl/Acetaminophen [Percocet 5-325 mg Tablet] 1 tab PO Q6H PRN [History] predniSONE [PredniSONE] 30 mg PO DAILY 12/05/16 [History] Rivaroxaban [Xarelto] 15 mg PO DAILY #0 tab 01/06/17 [Rx] Allergies/Adverse Reactions: Allergies clindamycin Allergy (Verified 11/14/15 16:39) See Comments c diff acetaminophen [From Vicodin] Adverse Reaction (Verified 11/14/15 16:39) Nausea hydrocodone [From Vicodin] Adverse Reaction (Verified 11/14/15 16:39) Nausea renexa Allergy (Uncoded 12/20/15 10:24) Rash Procedures/tests Complete & Pending: Procedures Performed prior 72 hours Category Date Time Status Venous Doppler [EV venous imaging LE BI] Routine Y 01/04/17 11:04 Completed Date of admission: 01/03/17 07:53 Primary care physician: Tyler Sharma Jr, MD Consults: 01/03/17 11:32 Consult to Cardiology [CONS] Routine Comment: Consulting Provider: Cardiology Estefani Reason for Consult: Chest pain, [facility] Call Completed: Yes Discharging clinician: Calixto Flores - Patient Status Disposition: Home, Self-Care Condition: Fair Functional capacity at discharge: uses cane/walker Overall status at discharge: patient is progressing back to baseline - Discharge Instructions Follow Up With: Tyler Sharma Jr, MD [Primary Care Provider] - - Diet and Activity Activity: increase activity as tolerated Diet: low fat, low cholesterol, low salt diet Interval History: Ms. Thomas is a 86 year old female Patient is seen and evaluated at the bedside. This is a pleasant 81-year-old female with past medical history of coronary artery disease status post CABG about 20 years ago, atrial fibrillation on Xarelto and aspirin, chronic kidney disease stage III, rheumatoid arthritis, hyperlipidemia, hypertension, osteoporosis, COPD Patient presents with sudden shortness of breath which she states has been present for about a month but worse overnight. She also reports chest pain substernal, located on the left side of the chest, radiating to her jaw and left arm. She presented to the ER because she lives alone, and was scared of a cardiac The patient was recently admitted and discharged on December 06 with similar symptoms which was managed medically at that time by increasing the dose of Imdur from 60-90 mg daily. At time of review, patient was seen well came to have bed from the bathroom, mildly short of breath, denies chest pain at that time. She reports compliance with her medications, and dietary restrictions. She reports she has not been able to make an appointment with her primary physician despite her symptoms going on for about a month. She reports associated worsening lower extremity edema is bilaterally. She denies constipation. She denies recent travels, she denies cough, she denies nausea vomiting or diarrhea. She has no abdominal, neurological, or genitourinary symptoms. Hospital course: Patient was hospitalized. Cardiology was consulted. Cardiology recommended medical management. During her last admission echocardiogram done showed ejection fraction 65-70%, with atypical septal motion indicated with previous CABG, mild left ventricular diastolic dysfunction, mild aortic stenosis, mild tricuspid regurgitation and pulmonary hypertension. However patient had stress test in August 2016 that showed a small medium sized reversible perfusion defect in the basal/mid inferior wall consistent with reversible myocardial ischemia. Discussed with the patient and she is not keen for any interventional aspects. Plan: Patient Is Clinically Much Better As Compared to the Day of Admission. Patient Can Go Home Today. Patient Needs Community Support As She Is the Only One and Does Not Have Any Family Member. Patient Will Follow up with Her Primary Care Provider in One to 2 Weeks. All Questions Answered at Time of Discharge. Patient's neighbor will come and get her home. - Time Spent with Patient Total time spent providing and/or coordinating discharge services: - Constitutional Vitals: Temp Pulse Resp BP Pulse Ox 97.5 F L 68 16 127/74 97 01/06/17 06:42 01/06/17 06:42 01/06/17 08:33 01/06/17 06:42 01/06/17 08:33 General appearance: Present: A&O X 3, pleasant, no acute distress, answers questions appropriately - Head Head exam: Present: atraumatic, normocephalic - Eye Eye exam: Present: PERRL, conjuntiva pink, sclera anicteric Pupils: Present: PERRL - Neck Neck exam general surgery: Present: supple, trachea midline. Absent: lymphadenopathy - Respiratory Respiratory exam: Present: CTAB. Absent: accessory muscle use, rales, rhonchi, wheezes - Cardiovascular Cardiovascular exam: Present: RRR, +S1, +S2. Absent: diastolic murmur, gallop, rubs, systolic murmur - GI/Abdominal GI/Abdominal exam: Present: normal bowel sounds, soft, no peritoneal signs. Absent: distended, tenderness - Extremities Exam Extremities exam: Present: warm, radial pulses palpable and symetrical. Absent : calf tenderness, cyanotic, pedal edema - Neurological Exam Neurological exam: Present: CN II-XII intact, oriented X3, no focal deficits. Absent: pronater drift, facial droop, speech deficit - Skin Skin exam: Present: dry, intact
[2017-01-06 11:11] VITALS: BP 102/68
--- NOTE | 2017-01-07 12:12 | Venous Imaging Report ---
LE Venous Duplex Patient Name:Ginger Thomas Order Number:[id number] Procedure Date:01/04/2017 Date:1930Age:86 yrs Gender:Female Location:[facility] Room #: 3NE34 Community Liaison Officer:Cristiano Dickey Referring MD:Carola Escamilla FRONT DESK MANAGER cost control analyst:Tyler Sharma MD Reading MD:Myron Lomax MD , FACS Primary Indications:Left leg swelling with pain Secondary Indications: Risk Factors Yes/No Anticoagulants Yes Hx of SVT Yes Impressions: Right lower extremity: normal superficial and deep exam. 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 Left lower extremity: normal deep exam. Findings Venous Duplex Results: Left: There is a chronic thrombus seen in the left lesser saphenous. Lower Extremity Venous Duplex Side Vein Compress Spontaneous Flow Augment Diameter (cm) Depth (cm) Right Distal Iliac Normal Yes Phasic Yes Right Common Femoral Normal Yes Phasic Yes Right Superficial Femoral Normal Yes Phasic Yes Right Popliteal Normal Yes Phasic Yes Right Posterior Tibial Normal Yes Phasic Yes Right Peroneal Normal Yes Phasic Yes Right Saphenofemoral [place] Normal Yes Phasic Yes Right Great Saphenous Normal Yes Phasic Yes Right Lesser Saphenous Normal Yes Phasic Yes Left Distal Iliac Normal Yes Phasic Yes Left Common Femoral Normal Yes Phasic Yes Left Superficial Femoral Normal Yes Phasic Yes Left Popliteal Normal Yes Phasic Yes Left Posterior Tibial Normal Yes Phasic Yes Left Peroneal Normal Yes Phasic Yes Left Gastrocnemius Normal Yes Phasic Yes Left Saphenofemoral [place] Normal Yes Phasic Yes Left Great Saphenous Normal Yes Phasic Yes Left Lesser Saphenous None no Absent no Updated by Myron Lomax MD, FACS on 01/07/2017 12:05:07 PM Myron Lomax MD electronically signed on 01/07/2017 12:05:41 PM with status of Final
== END 2017-01-06 12:00 | disposition home or self-care (01) ==
LOC: EMEROO 06:10 → 3NENU 06:10
PROVIDERS: ADMIT Internal Medicine; ATTEND Registered Nurse

== ENCOUNTER 2017-04-12 07:38 | Inpatient (IN) ==
[2017-04-12] MEDS ORDERED: Vancomycin 750 MG in D5% in Water 250 ML IVPB ONE (08:07)
--- NOTE | 2017-04-12 08:14 | Emergency Department Note ---
Disposition Clinical Impression: Cellulitis Qualifiers: Site of cellulitis: extremity Site of cellulitis of extremity: lower extremity Laterality: left Qualified Code(s): L03.116 - Cellulitis of left lower limb Disposition: Admitted As Inpatient Condition: Good Referrals: Tyler Sharma Jr, MD [Primary Care Provider] - Forms: ED Satisfaction Letter General Adult HPI - General Chief complaint: ED Extremity Problem,Nontraumatic Stated complaint: LLE pain/edema/red & warm to touch/weak pulse Time Seen by Provider: 04/12/17 07:41 Source: patient, EMS Limitations: no limitations - History of Present Illness HPI Narrative: Patient presents with left lower extremity pain, swelling, redness. Symptoms present for a few days. Just developed a fever this morning. She does not recall any violations of the skin to the leg. No recent travel, trauma or surgery. Last time she had chest pain was a couple weeks ago. She has shortness of breath at baseline, but feels a little worse this morning. No cough, no hemoptysis. No symptoms of abnormal bleeding. She is on prednisone therapy for advanced rheumatoid arthritis. Pain Scale: 10 - Related Data Home Medications Medication Instructions Recorded Confirmed Aspirin 81 mg PO DAILY 05/07/15 04/12/17 Atorvastatin [Lipitor] 40 mg PO HS 05/07/15 04/12/17 Diltiazem CD (24hr) [Cardizem CD] 240 mg PO DAILY 05/07/15 04/12/17 Budesonide/Formoterol Fumarate 1 puff IH DAILY 11/14/15 04/12/17 [Symbicort 80-4.5 Mcg Inhaler] Multivitamin [Multi-Day Vitamins] 1 tab PO DAILY 11/14/15 04/12/17 TraZODone 50 mg PO HS 11/14/15 04/12/17 Isosorbide MONOnitrate (24 HR) 90 mg PO DAILY 12/05/16 04/12/17 [Imdur] Nitroglycerin [Nitrostat] 0.4 mg SL Q5M PRN 12/05/16 04/12/17 Oxycodone HCl/Acetaminophen 1 tab PO Q6H PRN 12/05/16 04/12/17 [Percocet 5-325 mg Tablet] ALPRAZolam [Xanax 0.25 MG Tablet] 0.25 mg PO BID 04/12/17 04/12/17 Cyanocobalamin (Vitamin B-12) 100 mcg PO DAILY 04/12/17 04/12/17 [Vitamin B-12] Furosemide [Lasix] 40 mg PO DAILY 04/12/17 04/12/17 predniSONE [PredniSONE] 10 mg PO DAILY 04/12/17 04/12/17 Previous Rx's Medication Instructions Recorded Rivaroxaban [Xarelto] 15 mg PO DAILY #0 tab 01/06/17 Allergies Allergy/AdvReac Type Severity Reaction Status Date / Time clindamycin AdvReac See Verified 04/12/17 08:44 Comments hydrocodone [From Vicodin] AdvReac Nausea Verified 04/12/17 07:46 ranolazine [From Ranexa] AdvReac Rash Verified 04/12/17 08:44 All systems ED: reviewed and negative except as stated. Past Medical History - Past Medical History Medical history: Reports: arthritis, atrial fibrillation, coronary artery disease, hyperlipidemia, hypertension, RA, renal disease (Patient states she was recently told she has kidney disease.). 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 Gen.: Well-developed, well-nourished patient lying in bed who appears nontoxic. Head: Atraumatic, normocephalic. Eyes: Sclerae anicteric. ENT: Mucous membranes moist. Neck: No JVD or hepatojugular reflux. Heart: Regular rate and rhythm with a 3/6 systolic murmur heard loudest at the right upper sternal border Lungs: Normal respiratory pattern without respiratory distress, lungs clear to auscultation bilaterally. Abdomen: Soft, nontender, nondistended, no guarding or peritoneal signs. Skin: Warm and dry, left lower extremity exam is consistent with cellulitis. It is red, hot, tender to the touch. No crepitus, no fluctuance. Neurologic: Awake, alert with normal speech and mental status. Cranial nerves grossly intact. No focal deficits or lateralizing signs. Psychiatric: Normal mood and affect. Musculoskeletal: 1-2+ peripheral edema in the left lower extremity, none on the right. Classic findings of rheumatoid arthritis in the hands with hypertrophy with the MCPs and ulnar deviation of the fingers. - General Limitations: no limitations General appearance: alert Course Vital Signs Temperature 100.6 F H 04/12/17 07:40 Pulse Rate 96 04/12/17 07:40 Respiratory Rate 20 04/12/17 07:40 Blood Pressure 148/78 04/12/17 07:40 O2 Sat by Pulse Oximetry 97 04/12/17 07:40 Temperature 100.6 F H 04/12/17 07:40 Pulse Rate 93 04/12/17 08:33 Respiratory Rate 20 04/12/17 08:33 Blood Pressure 127/70 04/12/17 08:33 O2 Sat by Pulse Oximetry 96 04/12/17 08:33 Oxygen Delivery Oxygen Delivery Room Air Medical Decision Making - MDM Narrative Medical decision making narrative: The patient has cellulitis clinically. She appears well, does not meet to sulfa criteria, but does meet surge criteria. Although surge criteria is no longer recommended to diagnosis sepsis, it is still we are held to by regulatory disease. I will start sepsis protocol for this reason. I will start with vancomycin rather than a first generation cephalosporin given her immunosuppression with prednisone. I doubt DVT, but think it deserves to be ruled out. DVT can also cause fever, she has decreased mobility due to her rheumatoid arthritis, and has unilateral pitting edema. Cellulitis is definitely most likely diagnosis, DVT should be ruled out. A Doppler has been ordered. - Lab Data Result diagrams: 04/12/17 08:24 04/12/17 08:24 Lab Results 04/12/17 04/12/17 04/12/17 Range/Units 08:24 08:24 08:24 WBC 12.4 H (4.3-11.1) K/mcL RBC 4.38 (3.82-4.97) M/mcL Hgb 10.2 L (11.5-15.4) g/dL Hct 33.4 L (35.3-44.9) % MCV 76.3 L (83.0-100.0) fL MCH 23.3 L (28.0-33.3) pg MCHC 30.5 L (31.6-35.5) g/dL RDW 18.9 H (11.5-14.5) % Plt Count 292 (140-400) K/mcL MPV 8.4 L (9.4-12.4) fL Immature Gran % 0.5 (0-4) % Seg Neutrophils % 91.4 % Lymphocytes % 4.8 % Monocytes % 2.7 % Eosinophils % 0.4 % Basophils % 0.2 % Neutrophils # 11.3 H (1.6-8.9) K/mcL Lymphocytes # 0.6 (0.6-4.6) K/mcL Monocytes # 0.3 (0.0-1.3) K/mcL Eosinophils # 0.1 (0.0-0.6) K/mcL Basophils # 0.0 (0.0-0.2) K/mcL Sodium 142 (136-145) mEq/L Potassium 3.6 (3.5-4.5) mEq/L Chloride 103 (98-109) mEq/L Carbon Dioxide 28 (19-29) mEq/L BUN 28 H (7-20) mg/dL Creatinine 1.24 H (0.57-1.11) mg/dL Est GFR ( Amer) 50 L (> 60) Est GFR (Non-Af Amer) 41 L (> 60) BUN/Creatinine Ratio 23 (6-26) Glucose 74 (70-99) mg/dL Calculated Osmolality 298 (280-300) Lactic Acid (0.5-2.2) mmol/L Calcium 8.9 (8.6-10.8) mg/dL Troponin I 0.03 (0-0.03) ng/mL Urine Color (Yellow) Urine Clarity (Clear) Urine pH (5.0-8.0) pH Units Ur Specific [place] (1.010-1.025) Urine Protein (Neg-Trace) mg/dL Urine Glucose (UA) (Normal) mg/dL Urine Ketones (Negative) mg/dL Urine Blood (Negative) Urine Nitrite (Negative) Urine Bilirubin (Negative) Urine Urobilinogen (Normal) mg/dL Ur Leukocyte Esterase (Negative) Ur Culture Indicated? (NO) 04/12/17 04/12/17 Range/Units 08:35 08:55 WBC (4.3-11.1) K/mcL RBC (3.82-4.97) M/mcL Hgb (11.5-15.4) g/dL Hct (35.3-44.9) % MCV (83.0-100.0) fL MCH (28.0-33.3) pg MCHC (31.6-35.5) g/dL RDW (11.5-14.5) % Plt Count (140-400) K/mcL MPV (9.4-12.4) fL Immature Gran % (0-4) % Seg Neutrophils % % Lymphocytes % % Monocytes % % Eosinophils % % Basophils % % Neutrophils # (1.6-8.9) K/mcL Lymphocytes # (0.6-4.6) K/mcL Monocytes # (0.0-1.3) K/mcL Eosinophils # (0.0-0.6) K/mcL Basophils # (0.0-0.2) K/mcL Sodium (136-145) mEq/L Potassium (3.5-4.5) mEq/L Chloride (98-109) mEq/L Carbon Dioxide (19-29) mEq/L BUN (7-20) mg/dL Creatinine (0.57-1.11) mg/dL Est GFR ( Amer) (> 60) Est GFR (Non-Af Amer) (> 60) BUN/Creatinine Ratio (6-26) Glucose (70-99) mg/dL Calculated Osmolality (280-300) Lactic Acid 1.8 (0.5-2.2) mmol/L Calcium (8.6-10.8) mg/dL Troponin I (0-0.03) ng/mL Urine Color Yellow (Yellow) Urine Clarity Clear (Clear) Urine pH 7.5 (5.0-8.0) pH Units Ur Specific [place] 1.015 (1.010-1.025) Urine Protein Negative (Neg-Trace) mg/dL Urine Glucose (UA) Normal (Normal) mg/dL Urine Ketones Negative (Negative) mg/dL Urine Blood Negative (Negative) Urine Nitrite Negative (Negative) Urine Bilirubin Negative (Negative) Urine Urobilinogen Normal (Normal) mg/dL Ur Leukocyte Esterase Negative (Negative) Ur Culture Indicated? NO (NO)
[2017-04-12 08:37] LABS: Basophils % 0.2 %; Eosinophils # 0.1 K/mcL (0.0-0.6); Eosinophils % 0.4 %; Hematocrit 33.4 % (35.3-44.9); Hemoglobin 10.2 g/dL (11.5-15.4); Immature Granulocytes % 0.5 % (0-4); Lymphocytes # 0.6 K/mcL (0.6-4.6); Lymphocytes % 4.8 %; Mean Corpuscular HGB Conc 30.5 g/dL (31.6-35.5); Mean Corpuscular Hemoglobin 23.3 pg (28.0-33.3); Mean Corpuscular Volume 76.3 fL (83.0-100.0); Mean Platelet Volume 8.4 fL (9.4-12.4); Monocytes # 0.3 K/mcL (0.0-1.3); Monocytes % 2.7 %; Neutrophils # 11.3 K/mcL (1.6-8.9); Platelet Count 292 K/mcL (140-400); Red Blood Count 4.38 M/mcL (3.82-4.97); Red Cell Distribution Width 18.9 % (11.5-14.5); Segmented Neutrophils % 91.4 %
[2017-04-12 08:49] LABS: Calcium 8.9 mg/dL (8.6-10.8); Potassium 3.6 mEq/L (3.5-4.5)
[2017-04-12 09:15] LABS: Bilirubin,Urine Negative (Negative); Blood,Urine Negative (Negative); Clarity,Urine Clear (Clear); Color,Urine Yellow (Yellow); Glucose,Urine (UA) Normal (Normal); Ketones,Urine Negative (Negative); Leukocyte Esterase,Urine Negative (Negative); Nitrite,Urine Negative (Negative); PH,Urine 7.5 pH Units (5.0-8.0); Protein,Urine Negative (Neg-Trace); Specific Gravity,Urine 1.015 (1.010-1.025); Urobilinogen,Urine Normal (Normal)
[2017-04-12] MEDS ORDERED: Naloxone 0.4 MG/ML INJ IVP PRN (10:54)
[2017-04-12] MEDS ORDERED: 0.9 % Sodium Chloride 1,000 ML IVC SCH (11:00)
[2017-04-12] MEDS ORDERED: Ondansetron 4 MG/2 ML VIAL IVP PRN (11:00)
[2017-04-12] MEDS ORDERED: Nitroglycerin 0.4 MG TAB.SUBL SL PRN (11:01)
[2017-04-12] MEDS ORDERED: *HR* OxyCODONE/APAP 5/325 TABLET PO PRN (11:01)
[2017-04-12] MEDS: Acetaminophen 325 MG TABLET PO PRN (11:25)
--- NOTE | 2017-04-12 11:36 | Internal Med History&Physical ---
<Chanel Lopez - Last Filed: 04/12/17 12:05> Date of Encounter: 04/12/17 Time of Encounter: 11:29 Assessment and Plan (1) Sepsis Current visit: Yes Status: Acute 1 very mild - WBC 12.4 temperature 100.6 heart rate 96-lactate 1.8 suspect cellulitis as cause. Blood cultures have been obtained patient was initiated on vancomycin and Zosyn 2 mild hypotension with systolic in the 90s we will hold Lasix and give gentle IV fluids 3 monitor intake and output daily weights 4 continuous cardiac monitoring Qualifiers: Sepsis type: sepsis due to unspecified organism Qualified Code(s): A41.9 - Sepsis, unspecified organism (2) Cellulitis Current visit: Yes Status: Acute 1 patient has been experiencing left lower extremity swelling and redness for the past 3 weeks. She denies any injury there are no open wounds noted. This a.m. she was unable to bear weight very tender to touch is red and warm. She is on xarelto for paroxysmal atrial fibrillation and she states she has been compliant spell past history of DVT. Ultrasound was ordered per ER physician awaiting results. Patient does have a white count with low-grade temp and blood cultures have been obtained we will initiate on Vanco and Zosyn 2 will consult PT and OT due to difficulty ambulating Qualifiers: Site of cellulitis: extremity Site of cellulitis of extremity: lower extremity Laterality: left Qualified Code(s): L03.116 - Cellulitis of left lower limb (3) Hypertension Current visit: No Status: Chronic Patient does have history of hypertension presently she is hypotensive with systolic pressure in the 90s. We will give gentle IV hydration and hold Lasix for now Low-sodium diet Qualifiers: Hypertension type: essential hypertension Qualified Code(s): I10 - Essential (primary) hypertension (4) Atrial fibrillation Current visit: No Status: Chronic Presently rate is controlled we will continue with Cardizem and Xarelto Qualifiers: Atrial fibrillation type: paroxysmal Qualified Code(s): I48.0 - Paroxysmal atrial fibrillation (5) CKD (chronic kidney disease) stage 3, GFR 30-59 ml/min Current visit: No Status: Chronic 1 present creatinine is 1.24 this appears to be around her baseline 1.3-1.4. GFR stable. She is hypotensive with likely related to her infectious state. We will give gentle IV fluids attempt to maintain MAP greater than 60 2 avoid nephrotoxins 3 monitor intake and output daily weights 4 renal dose antibiotics (6) Diastolic CHF Current visit: No Status: Acute Patient's EF is 65-70% per last echo-presently she appears stable no fluid overload this time. She is hypotensive which will give her gentle hydration and hold Lasix today Monitor intake and output daily weight Low-sodium diet Qualifiers: Congestive heart failure chronicity: chronic Qualified Code(s): I50.32 - Chronic diastolic (congestive) heart failure (7) CAD (coronary artery disease) Current visit: No Status: Acute History of open heart surgery 23 years ago no stents will continue with statin aspirin we will hold Imdur for today due to hypotension nitrates as needed for chest pain Oxygen as needed to maintain SPO2 greater than 92% Qualifiers: Coronary Disease-Associated Artery/Lesion type: bypass graft, autologous artery Associated angina: without angina Qualified Code(s): I25.810 - Atherosclerosis of coronary artery bypass graft(s) without angina pectoris (8) DVT prophylaxis Current visit: No Status: Acute Patient is on Xarelto Internal Medicine - H&P: HPI Chief complaint: Left leg pain Admitted From: Emergency Dept Plans for Post Hospital Care: Home History of present illness: Ms. Thomas is a 86 year old female past medical history of CAD with open-heart 23 years ago COPD paroxysmal atrial fib diastolic heart failure CK D stage III rheumatoid arthritis hyperlipidemia hypertension. According to the patient for the past 3 weeks she has experienced left lower extremity swelling and redness. She contributed this to her rheumatoid arthritis she attempted to elevate her leg however there is no improvement. Approximate 4 AM she awoke to go to the bathroom she attempted to bear weight onto her left leg is very tender and sore she was unable to bear weight. She also had a temperature this a.m. which she again attributed to her rheumatoid arthritis. The pain continued throughout the morning she did call EMS. According to ER records patient did present with low-grade temperature 100.6 heart rate was 96 chest x-ray was with no acute process she did have elevated white count 12.4 her left leg was red swollen tender to touch they did obtain ultrasound to rule out DVT. Blood cultures were obtained and she was given vancomycin. She has been admitted for further workup and evaluation. Presently patient appears to be hemodynamically stable she denies any pain or discomfort at this time I did review this case with Dr. Bhatti who agrees with plan. Past Med Surg Social Fam HX - Past Medical History Medical history: arthritis, atrial fibrillation, coronary artery disease, hyperlipidemia, hypertension, RA, renal disease Psychiatric history: no psych history - Past Surgical History Surgical History: cataract, coronary bypass (CABG), orthopedic, other - Social History Smoking Status: Never smoker Smokeless Tobacco Status: No Alcohol use: none Drug use: none - Family History Father Family Member Ethnicity: Non- Living Status: Hx Family Cardiac Disorders: Yes (NM) Hx Family Respiratory Disorders: No Hx Family Cancer: No Hx Family GI Disorders: No Hx Family Endocrine Disorder: No Hx Family Neuromuscular Disorders: No Hx Family Neurologic Disorders: No Hx Family HEENT Disorders: No Hx Family Autoimmune Disorders: No Mother Family Member Ethnicity: Non- Living Status: Hx Family Cardiac Disorders: Yes (Stroke) Internal Medicine - H&P: Meds Aspirin 81 mg PO DAILY 05/07/15 [History] Atorvastatin [Lipitor] 40 mg PO HS 05/07/15 [History] Diltiazem CD (24hr) [Cardizem CD] 240 mg PO DAILY 05/07/15 [History] Budesonide/Formoterol Fumarate [Symbicort 80-4.5 Mcg Inhaler] 1 puff IH DAILY [History] Multivitamin [Multi-Day Vitamins] 1 tab PO DAILY 11/14/15 [History] TraZODone 50 mg PO HS 11/14/15 [History] Isosorbide MONOnitrate (24 HR) [Imdur] 90 mg PO DAILY 12/05/16 [History] Nitroglycerin [Nitrostat] 0.4 mg SL Q5M PRN 12/05/16 [History] Oxycodone HCl/Acetaminophen [Percocet 5-325 mg Tablet] 1 tab PO Q6H PRN [History] Rivaroxaban [Xarelto] 15 mg PO DAILY #0 tab 01/06/17 [Rx] ALPRAZolam [Xanax 0.25 MG Tablet] 0.25 mg PO BID 04/12/17 [History] Cyanocobalamin (Vitamin B-12) [Vitamin B-12] 100 mcg PO DAILY 04/12/17 [History] Furosemide [Lasix] 40 mg PO DAILY 04/12/17 [History] predniSONE [PredniSONE] 10 mg PO DAILY 04/12/17 [History] 3 Allergy/AdvReac Type Severity Reaction Status Date / Time clindamycin AdvReac See Verified 04/12/17 08:44 Comments hydrocodone [From Vicodin] AdvReac Nausea Verified 04/12/17 07:46 ranolazine [From Ranexa] AdvReac Rash Verified 04/12/17 08:44 All Systems PM: A 10-system review of systems was performed and is negative for pertinent findings except as documented above in the HPI. - Constitutional Constitutional: no chills, no fever(s), no night sweats - EENT Eyes: no change in vision, no discharge, no pain, no photophobia Nose, mouth and throat: no dysphagia, no nasal discharge, no neck pain, no sore throat - Cardiovascular Cardiovascular ROS IM: edema, no chest pain, no diaphoresis, no dyspnea, no lightheadedness, no palpitations, no syncope - Respiratory Respiratory: no cough, no dyspnea, no wheezing, no excessive phlegm production - Gastrointestinal Gastrointestinal: no abdominal pain, no diarrhea, no hematemesis, no hematochezia, no melena, no nausea, no vomiting - Genitourinary Genitourinary: no change in urinary stream, no dysuria, no flank pain, no hematuria - Musculoskeletal Musculoskeletal ROS IM: no numbness, no tingling - Integumentary Integumentary IM: erythema, no rash, no unusual bruising - Constitutional Vitals: Temp Pulse Resp BP Pulse Ox 99.9 F H 72 16 98/63 96 04/12/17 10:49 04/12/17 10:49 04/12/17 10:49 04/12/17 10:49 04/12/17 10:49 General appearance: Present: A&O X 3 - Head Head exam: Present: atraumatic, normocephalic - Eye Eye exam: Present: PERRL, conjuntiva pink, sclera anicteric Pupils: Present: PERRL - Neck Neck exam general surgery: Present: supple, trachea midline. Absent: lymphadenopathy - Respiratory Respiratory exam: Present: CTAB. Absent: accessory muscle use, rales, rhonchi, wheezes - Cardiovascular Cardiovascular exam: Present: RRR, +S1, +S2. Absent: diastolic murmur, gallop, rubs, systolic murmur - GI/Abdominal GI/Abdominal exam: Present: normal bowel sounds, soft, no peritoneal signs. Absent: distended, tenderness - Extremities Exam Extremities exam: Present: pedal edema, tenderness, warm - Neurological Exam Neurological exam: Present: CN II-XII intact, oriented X3, no focal deficits. Absent: pronater drift, facial droop, speech deficit - Skin Skin exam: Present: dry, erythema, intact Internal Med - H&P Results - Labs CBC & Chem 7: 04/12/17 08:24 04/12/17 08:24 - Diagnostic Studies Other Images Additional comments: Chest X-Ray 04/12/17 08:09 IMPRESSION: Stable exam without evidence for acute cardiopulmonary process. COPD. D/ / 04/12/2017 09:23:11 Willis Steward MD / [facility] Interpreting Provider: Willis Steward MD <Darien Cuevas - Last Filed: 04/12/17 18:16> Date of Encounter: 04/12/17 Internal Medicine - H&P: HPI History of present illness: Ms. Thomas is a 86 year old female All Systems PM: A 10-system review of systems was performed and is negative for pertinent findings except as documented above in the HPI. - Constitutional Vitals: Temp Pulse Resp BP Pulse Ox 97.8 F 77 15 98/54 96 04/12/17 14:44 04/12/17 14:44 04/12/17 14:44 04/12/17 14:44 04/12/17 14:44 Internal Med - H&P Results - Labs CBC & Chem 7: 04/12/17 08:24 04/12/17 08:24 - Attending Attestation I have seen and examined this patient and my medical decision-making was reviewed with the [employer]. I agree with the documented findings, disposition and treatment plan as described except to the extent set forth below. The patient is a 86-year-old female with past medical history of atrial fibrillation, arthritis, coronary artery disease, hyperlipidemia, hypertension, chronic kidney disease and arthritis. She presents to the ED with complaints of left lower leg pain. She is experiencing this for the past 3 weeks. She has tried to keep her leg elevated but this has not helped with the swelling. She does have severe advanced rheumatoid arthritis. She also complains of subjective fever. She also complains of mild shortness of breath. She denies chest pain. Patient does have elevated white count. UA is negative. Chest x- ray does not show any acute process. Patient is being admitted for acute left lower leg cellulitis. She will be on IV vancomycin and empiric IV Rocephin. Cultures are pending. She also has history of COPD and she does have wheezing bilaterally. She will be on DuoNeb breathing treatment. Patient is being restarted on all her home medications and we will need to watch for hypotension. Patient's chronic kidney disease stage III is currently stable at baseline. She does not seem volume overloaded. Patient will also be continued on her aspirin and Lipitor. She will also be continued on anticoagulation with Xarelto Heart rate 77, blood pressure 98/54, O2 sat 96% on room air. Cardiac S1-S2 positive. Lungs bilateral good air entry mild wheezing bilaterally. Abdomen soft nontender no masses or guarding. Extremities PULSES strong, erythema and swelling 2+ left lower extremity, no swelling over the right lower extremity.
[2017-04-12] MEDS: Piperacillin/Tazobactam 3.375 GM in D5% in Water (Mini-Bag+) 100 ML IVPB SCH (18:35)
[2017-04-12] MEDS: Ipratropium/Albuterol Neb 3 ML IH SCH (19:52)
[2017-04-12] MEDS: ALPRAZolam 0.25 MG TABLET PO SCH (20:27)
[2017-04-12] MEDS: traZODone 50 MG TABLET PO SCH (20:28)
[2017-04-13] MEDS: Ipratropium/Albuterol Neb 3 ML IH SCH ×7 (00:17→23:31)
[2017-04-13 01:11] LABS: Acinetobacter baumannii by PCR Not Detected (Not Detect); Candida albicans by PCR Not Detected (Not Detect); Candida glabrata by PCR Not Detected (Not Detect); Candida krusei by PCR Not Detected (Not Detect); Candida parapsilosis by PCR Not Detected (Not Detect); Candida tropicalis by PCR Not Detected (Not Detect); Enterococcus by PCR Not Detected (Not Detect); Escherichia coli by PCR ***DETECTED*** (Not Detect); Klebsiella oxytoca by PCR Not Detected (Not Detect); Klebsiella pneumoniae by PCR Not Detected (Not Detect); Pseudomonas aeruginosa by PCR Not Detected (Not Detect); Serratia marcescens by PCR Not Detected (Not Detect); Staphylococcus aureus by PCR Not Detected (Not Detect); Streptococcus agalactiae(B)PCR Not Detected (Not Detect); Streptococcus by PCR Not Detected (Not Detect); Streptococcus pneumoniae PCR Not Detected (Not Detect); Streptococcus pyogenes (A) PCR Not Detected (Not Detect); blaKPC Carbapenem-Resist Gene Not Detected (Not Detect)
[2017-04-13 04:13] LABS: Basophils % 0.2 %; Eosinophils # 0.2 K/mcL (0.0-0.6); Eosinophils % 1.3 %; Hematocrit 32.7 % (35.3-44.9); Immature Granulocytes % 0.4 % (0-4); Lymphocytes # 0.7 K/mcL (0.6-4.6); Lymphocytes % 5.8 %; Mean Corpuscular HGB Conc 30.6 g/dL (31.6-35.5); Mean Corpuscular Hemoglobin 23.4 pg (28.0-33.3); Mean Corpuscular Volume 76.6 fL (83.0-100.0); Mean Platelet Volume 9.1 fL (9.4-12.4); Monocytes # 0.7 K/mcL (0.0-1.3); Monocytes % 6.1 %; Platelet Count 272 K/mcL (140-400); Red Blood Count 4.27 M/mcL (3.82-4.97); Red Cell Distribution Width 19.3 % (11.5-14.5); Segmented Neutrophils % 86.2 %
[2017-04-13 04:23] LABS: Calcium 8.4 mg/dL (8.6-10.8); Potassium 3.1 mEq/L (3.5-4.5)
[2017-04-13] MEDS: Piperacillin/Tazobactam 3.375 GM in D5% in Water (Mini-Bag+) 100 ML IVPB SCH ×2 (05:07→17:31)
[2017-04-13] MEDS: Budesonide/Formoterol 80/4.5 MDI IH SCH (08:24)
[2017-04-13] MEDS ORDERED: Aminoglycoside Consult 1 EACH MC ONE (08:36)
[2017-04-13] MEDS ORDERED: Vancomycin 750 MG in D5% in Water 250 ML IVPB SCH (09:00)
[2017-04-13] MEDS: Pantoprazole 40 MG VIAL IVP SCH (10:27)
[2017-04-13] MEDS: Aspirin 81 MG TAB.CHEW PO SCH (10:36)
[2017-04-13] MEDS: *HR* Rivaroxaban 15 MG TABLET PO SCH (10:36)
[2017-04-13] MEDS: Multivit/Ca/Min/Fe/FA 1 TAB TABLET PO SCH (10:36)
[2017-04-13] MEDS: Diltiazem CD (24hr) 240 MG CAPSULE PO SCH (10:36)
[2017-04-13] MEDS: ALPRAZolam 0.25 MG TABLET PO SCH ×2 (10:36→20:24)
[2017-04-13] MEDS: predniSONE 10 MG TABLET PO SCH (10:36)
[2017-04-13] MEDS: Furosemide 40 MG TABLET PO SCH (10:49)
[2017-04-13] MEDS: Isosorbide MONOnitrate (24 HR) 60 MG TAB.ER.24H PO SCH (10:49)
[2017-04-13] MEDS: (Cyanocobalamin (Vitamin B-12) [Vitamin B-12] 100 MCG PO SCH (10:50)
[2017-04-13] MEDS: Acetaminophen 325 MG TABLET PO PRN (10:56)
[2017-04-13] MEDS ORDERED: Vancomycin 1,000 MG in D5% in Water 250 ML IVPB SCH (12:00)
--- NOTE | 2017-04-13 15:58 | Internal Med Progress Note ---
Date of Encounter: 04/13/17 Time of Encounter: 15:10 - Assessment and plan (1) Cellulitis Current Visit: Yes Status: Acute Assessment and plan: Patient has been experiencing left lower extremity swelling and redness for the past 3 weeks with increased difficulty in ambulating. She denies any injury and there are no open wounds noted. She was unable to bear weight and LLE was very tender to touch is red and warm. She is on xarelto for paroxysmal atrial fibrillation and she states she has been compliant. Ultrasound was ordered per ER physician awaiting results. It was ordered yesterday, completed , still not resulted. Pt reports feeling weak and fatigued, PT and OT consulted. Qualifiers: Site of cellulitis: extremity Site of cellulitis of extremity: lower extremity Laterality: left Qualified Code(s): L03.116 - Cellulitis of left lower limb (2) Sepsis Current Visit: Yes Status: Acute Assessment and plan: Patient presented to the emergency room with known source of infection, cellulitis to left lower extremity. She had a low-grade fever, mild leukocytosis, as well as pulse greater than 90. Patient is no longer tachycardic, respiratory are less than 18, patient is normotensive and afebrile. White count is improving since admission Blood culture shows gram-negative rods. Serology shows anterior back to her and Escherichia coli. We will continue Vanco and Zosyn. Qualifiers: Sepsis type: Escherichia coli Qualified Code(s): A41.51 - Sepsis due to Escherichia coli [E. coli] (3) Hypertension Current Visit: No Status: Chronic Assessment and plan: Blood pressures well controlled in the hospital setting. Continue to monitor vital signs, continue home medications. Qualifiers: Hypertension type: essential hypertension Qualified Code(s): I10 - Essential (primary) hypertension (4) Atrial fibrillation Current Visit: Yes Status: Chronic Assessment and plan: Chronic. Per patient history. Patient is anticoagulated with Xarelto. Continue Cardizem. Qualifiers: Atrial fibrillation type: paroxysmal Qualified Code(s): I48.0 - Paroxysmal atrial fibrillation (5) CKD (chronic kidney disease) stage 3, GFR 30-59 ml/min Current Visit: Yes Status: Chronic Assessment and plan: Renal function appears to be improved from recent baseline. Sr Cr 1.26, GFR 40. Continue to avoid nephrotoxins and NSAIDS. Gentle IV hydration as needed. (6) Diastolic CHF Current Visit: Yes Status: Acute Assessment and plan: No acute exacerbation at this time. Chronic. Echocardiogram in November shows normal LV systolic function with LVEF of 65-70, mild LVEDD, mild a aortic stenosis, mild TR. Qualifiers: Congestive heart failure chronicity: chronic Qualified Code(s): I50.32 - Chronic diastolic (congestive) heart failure (7) COPD (chronic obstructive pulmonary disease) Current Visit: No Status: Chronic Qualifiers: COPD type: unspecified COPD Qualified Code(s): J44.9 - Chronic obstructive pulmonary disease, unspecified (8) CAD (coronary artery disease) Current Visit: Yes Status: Acute Assessment and plan: Chronic. Patient denies chest pain. Continue aspirin, Lipitor, Imdur, and Xarelto. Qualifiers: Coronary Disease-Associated Artery/Lesion type: bypass graft, autologous artery Associated angina: without angina Qualified Code(s): I25.810 - Atherosclerosis of coronary artery bypass graft(s) without angina pectoris (9) DVT prophylaxis Current Visit: Yes Status: Acute Assessment and plan: Pt is on Xarelto. - Time Spent With Patient less than 15 minutes - Subjective Interval history: Patient was seen and assessed at 1510 today. Patient was sleeping, arouses easily. She is alert, awake, oriented 3. She is exceptionally pleasant. She says she feels very tired, other than that she is doing well. She still reports pain to left lower extremity and denies need for change in medication or frequency of medication. She denies headache, chest pain, nausea, vomiting, diarrhea, or abdominal pain. - Constitutional Vitals: Temp Pulse Resp BP Pulse Ox 97.7 F 80 14 105/69 94 04/13/17 15:25 04/13/17 15:25 04/13/17 15:25 04/13/17 15:25 04/13/17 15:25 General appearance: Present: A&O X 3, pleasant, no acute distress, answers questions appropriately - Head Head exam: Present: atraumatic, normocephalic - Eye Eye exam: Present: normal appearance, conjuntiva pink, sclera anicteric - Neck Neck exam general surgery: Present: supple, trachea midline. Absent: lymphadenopathy, tenderness - Respiratory Respiratory exam: Present: CTAB. Absent: accessory muscle use, rales, respiratory distress, rhonchi, wheezes - Cardiovascular Cardiovascular exam: Present: RRR, +S1, +S2. Absent: diastolic murmur, gallop, rubs, systolic murmur - GI/Abdominal GI/Abdominal exam: Present: distended, normal bowel sounds, soft. Absent: tenderness - Extremities Exam Extremities exam: Present: tenderness, warm, radial pulses palpable and symmetrical. Absent: calf tenderness, cyanotic, pedal edema - Neurological Exam Neurological exam: Present: alert, oriented X3, no focal deficits. Absent: facial droop, speech deficit - Skin Skin exam: Present: dry, intact, normal color, warm. Absent: rash Internal Medicine: Result - Labs CBC & Chem 7: 04/13/17 02:44 04/13/17 02:44 Labs: Short CBC 04/13/17 Range/Units 02:44 WBC 11.7 H (4.3-11.1) K/mcL Hgb 10.0 L (11.5-15.4) g/dL Hct 32.7 L (35.3-44.9) % Plt Count 272 (140-400) K/mcL Neutrophils # 10.0 H (1.6-8.9) K/mcL BMP 04/13/17 02:44 Sodium 140 Potassium 3.1 L Chloride 104 Carbon Dioxide 30 H BUN 24 H Creatinine 1.26 H Glucose 83 Calcium 8.4 L Consult Discharge Plan - Plan Referrals: Tyler Sharma Jr, MD [Primary Care Provider] -
[2017-04-13] MEDS: traZODone 50 MG TABLET PO SCH (20:24)
[2017-04-14] MEDS: Ipratropium/Albuterol Neb 3 ML IH SCH ×6 (04:43→23:19)
[2017-04-14 05:06] LABS: Basophils % 0.1 %; Eosinophils # 0.1 K/mcL (0.0-0.6); Eosinophils % 0.6 %; Hematocrit 30.3 % (35.3-44.9); Hemoglobin 9.3 g/dL (11.5-15.4); Immature Granulocytes % 0.3 % (0-4); Lymphocytes # 0.4 K/mcL (0.6-4.6); Lymphocytes % 3.3 %; Mean Corpuscular HGB Conc 30.7 g/dL (31.6-35.5); Mean Corpuscular Hemoglobin 23.5 pg (28.0-33.3); Mean Corpuscular Volume 76.7 fL (83.0-100.0); Mean Platelet Volume 8.8 fL (9.4-12.4); Monocytes # 0.7 K/mcL (0.0-1.3); Monocytes % 5.9 %; Neutrophils # 10.4 K/mcL (1.6-8.9); Platelet Count 254 K/mcL (140-400); Red Blood Count 3.95 M/mcL (3.82-4.97); Red Cell Distribution Width 18.9 % (11.5-14.5); Segmented Neutrophils % 89.8 %
[2017-04-14 05:42] LABS: Calcium 8.3 mg/dL (8.6-10.8); Potassium 3.1 mEq/L (3.5-4.5)
[2017-04-14] MEDS: Piperacillin/Tazobactam 3.375 GM in D5% in Water (Mini-Bag+) 100 ML IVPB SCH ×2 (06:38→18:47)
[2017-04-14] MEDS ORDERED: 0.9 % Sodium Chloride 1,000 ML IVC SCH (07:15)
--- NOTE | 2017-04-14 07:17 | Internal Med Progress Note ---
Date of Encounter: 04/14/17 Time of Encounter: 13:45 - Assessment and plan (1) Cellulitis Current Visit: Yes Status: Acute Assessment and plan: Patient has been experiencing left lower extremity swelling and redness for the past 3 weeks with increased difficulty in ambulating. She denies any injury and there are no open wounds noted. She was unable to bear weight and LLE was very tender to touch is red and warm. She is on xarelto for paroxysmal atrial fibrillation and she states she has been compliant. Pt has been able to partially bear weight on LLE when assisted to chair from bed. Redness has improved and swelling has decreased. Pt reports pain has improved, as well. Vancomycin stopped due to worsening renal function and no need based on results of initial culture. Impressions Venous Doppler BLE: Left lower extremity: normal deep exam.Lower extremity abnormal superficial exam: left lesser saphenous vein demonstrates chronic thrombosis with partial compressibility and maintained flow Recommendations: After imaging the patient was admitted to the emergency room. Test completed on 04/12/2017 at 10:07:42 am. Critical findings reported to [facility] in person at 10:08:12 am on 04/12/2017 by Zenobia Fagan RVT, RDMUKESH. Findings Venous Duplex Results: Right: Venous imaging of the lower extremity reveals full patency and normal vessel compressibility of the right common femoral. Doppler signals in the evaluated veins were normal. Left: Venous imaging of the lower extremity reveals full patency and normal vessel compressibility of the left distal iliac, left common femoral, left superficial femoral, left popliteal, left posterior tibial, left peroneal, left saphenofemoral junction and left great saphenous. Doppler signals in the evaluated veins were normal. There is a chronic partially occlusive thrombus seen in the left lesser saphenous. It demonstrates a partially compressible vein. Flow was phasic and it did augment. Qualifiers: Site of cellulitis: extremity Site of cellulitis of extremity: lower extremity Laterality: left Qualified Code(s): L03.116 - Cellulitis of left lower limb (2) Sepsis Current Visit: Yes Status: Acute Assessment and plan: Patient presented to the emergency room with known source of infection, cellulitis to left lower extremity. She had a low-grade fever, mild leukocytosis, as well as pulse greater than 90. She was initiallly started on Zosyn, which was stopped today 04/14 due to results of initial culture and worsening renal function. Patient is no longer tachycardic, respiratory are less than 18, patient is normotensive and afebrile. White count is improving since admission Blood culture shows gram-negative rods. Serology shows anterior back to her and Escherichia coli. Final and sensitivity pending. Qualifiers: Sepsis type: Escherichia coli Qualified Code(s): A41.51 - Sepsis due to Escherichia coli [E. coli] (3) Hypertension Current Visit: No Status: Chronic Assessment and plan: Blood pressures well controlled. Continue to monitor vital signs, continue home medications. Qualifiers: Hypertension type: essential hypertension Qualified Code(s): I10 - Essential (primary) hypertension (4) Atrial fibrillation Current Visit: Yes Status: Chronic Assessment and plan: Chronic. Per patient history. Patient is anticoagulated with Xarelto. Continue Cardizem. Pt denies chest pain, SOB, chest pressure. Qualifiers: Atrial fibrillation type: paroxysmal Qualified Code(s): I48.0 - Paroxysmal atrial fibrillation (5) CKD (chronic kidney disease) stage 3, GFR 30-59 ml/min Current Visit: Yes Status: Chronic Assessment and plan: Sr Cr increased 1.60, GFR decreased to 30. Will start gentle IV hydration. Vanco has been stopped based on results of initial blood culture. 0.9NS @ 50ml/hour- d/c in 12 hours d/t history of CHF. Monitor closely. Avoid nephrotoxins and NSAIDS (6) Diastolic CHF Current Visit: Yes Status: Acute Assessment and plan: No acute exacerbation at this time. Chronic. Echocardiogram in November shows normal LV systolic function with LVEF of 65-70, mild LVEDD, mild a aortic stenosis, mild TR. Qualifiers: Congestive heart failure chronicity: chronic Qualified Code(s): I50.32 - Chronic diastolic (congestive) heart failure (7) COPD (chronic obstructive pulmonary disease) Current Visit: No Status: Chronic Assessment and plan: No acute exacerbation. Chest xray negative for acute process, shows COPD on arrival to ED. Pt denies SOB and is not requiring supplemental 02 to maintain sats. Ronchi heard in all lung or[place]ke. Pt denies new or increased cough, chills , fever. Pt has mild leukocytosis, she has known site of infection and is also on steroids. Continue to monitor. Continue Duonebs, Symbicort, and Prednisone. Qualifiers: COPD type: unspecified COPD Qualified Code(s): J44.9 - Chronic obstructive pulmonary disease, unspecified (8) CAD (coronary artery disease) Current Visit: Yes Status: Acute Assessment and plan: Chronic. Patient denies chest pain. Continue aspirin, Lipitor, Imdur, and Xarelto. Qualifiers: Coronary Disease-Associated Artery/Lesion type: bypass graft, autologous artery Associated angina: without angina Qualified Code(s): I25.810 - Atherosclerosis of coronary artery bypass graft(s) without angina pectoris (9) Anemia Current Visit: Yes Status: Acute Assessment and plan: Hgb 9.3 today. Per lab trend, pt with anemia since 12/01. B12 level >2000, Folate WNL, and Iron low at 10 and % sat low at 4. Most likely anemia of chronic disease, CKDIII. Will supplement Iron. Continue to monitor. Transfuse if hgb <8 and symptomatic. Qualifiers: Anemia type: unspecified type Qualified Code(s): D64.9 - Anemia, unspecified (10) DVT prophylaxis Current Visit: Yes Status: Acute - Subjective Interval history: Patient was seen and assessed at 1345 today. Patient was awake, sitting up in bed, eating lunch. She is alert, awake, oriented 3. She is exceptionally pleasant. She says she feels very tired, other than that she is doing well. She reports improvement in pain to left lower extremity and denies need for change in medication or frequency of medication. She denies headache, chest pain, nausea, vomiting, diarrhea, or abdominal pain. She states that her leg looks and feels better and is able to bear some weight on left leg when assisted to chair from bed. - Constitutional Vitals: Temp Pulse Resp BP Pulse Ox 97.9 F 78 18 107/64 91 04/14/17 06:48 04/14/17 06:48 04/14/17 06:48 04/14/17 06:48 04/14/17 06:48 General appearance: Present: cooperative, A&O X 3, pleasant, no acute distress, answers questions appropriately - Head Head exam: Present: atraumatic, normal inspection, normocephalic - Eye Eye exam: Present: normal appearance, conjuntiva pink, sclera anicteric - Neck Neck exam general surgery: Present: supple, trachea midline. Absent: lymphadenopathy, tenderness - Respiratory Respiratory exam: Present: CTAB, rhonchi. Absent: accessory muscle use, chest wall tenderness, rales, wheezes - Cardiovascular Cardiovascular exam: Present: RRR, +S1, +S2. Absent: diastolic murmur, gallop, rubs, systolic murmur - GI/Abdominal GI/Abdominal exam: Present: normal bowel sounds, soft, no peritoneal signs. Absent: distended, tenderness - Extremities Exam Extremities exam: Present: tenderness, warm, radial pulses palpable and symmetrical. Absent: calf tenderness, cyanotic, normal inspection, pedal edema - Neurological Exam Neurological exam: Present: alert, oriented X3, no focal deficits. Absent: pronater drift, facial droop, speech deficit - Skin Skin exam: Present: dry, intact, normal color, warm. Absent: rash Internal Medicine: Result - Labs CBC & Chem 7: 04/14/17 04:44 04/14/17 04:44 Labs: Short CBC 04/14/17 Range/Units 04:44 WBC 11.6 H (4.3-11.1) K/mcL Hgb 9.3 L (11.5-15.4) g/dL Hct 30.3 L (35.3-44.9) % Plt Count 254 (140-400) K/mcL Neutrophils # 10.4 H (1.6-8.9) K/mcL BMP 04/14/17 04:44 Sodium 142 Potassium 3.1 L Chloride 107 Carbon Dioxide 25 BUN 27 H Creatinine 1.60 H Glucose 139 H Calcium 8.3 L Consult Discharge Plan - Plan Referrals: Tyler Sharma Jr, MD [Primary Care Provider] -
[2017-04-14] MEDS: Budesonide/Formoterol 80/4.5 MDI IH SCH (07:52)
[2017-04-14] MEDS: ALPRAZolam 0.25 MG TABLET PO SCH ×2 (08:49→21:14)
[2017-04-14] MEDS: Multivit/Ca/Min/Fe/FA 1 TAB TABLET PO SCH (08:49)
[2017-04-14] MEDS: Aspirin 81 MG TAB.CHEW PO SCH (08:49)
[2017-04-14] MEDS: Diltiazem CD (24hr) 240 MG CAPSULE PO SCH (08:49)
[2017-04-14] MEDS: *HR* Rivaroxaban 15 MG TABLET PO SCH (08:50)
[2017-04-14] MEDS: predniSONE 10 MG TABLET PO SCH (08:50)
[2017-04-14] MEDS: Pantoprazole 40 MG VIAL IVP SCH (08:51)
[2017-04-14 09:08] LABS: % Iron Saturation 4 % (15-50); Iron 10 mcg/dL (50-170); Transferrin 196 mg/dL (180-382)
[2017-04-14 09:43] LABS: Folate 13.9 ng/mL (7.0-31.4); Vitamin B12 > 2000 pg/mL (213-816)
[2017-04-14] MEDS: Isosorbide MONOnitrate (24 HR) 60 MG TAB.ER.24H PO SCH (10:12)
[2017-04-14] MEDS: (Cyanocobalamin (Vitamin B-12) [Vitamin B-12] 100 MCG PO SCH (11:15)
[2017-04-14 12:09] LABS: INR 1.7; Prothrombin Time 18.5 Seconds (9.4-12.1)
[2017-04-14] MEDS: Acetaminophen 325 MG TABLET PO PRN (15:47)
[2017-04-14] MEDS: Furosemide 40 MG TABLET PO SCH (16:58)
[2017-04-14] MEDS: traZODone 50 MG TABLET PO SCH (21:14)
[2017-04-15] MEDS: Ipratropium/Albuterol Neb 3 ML IH SCH ×5 (03:43→20:02)
[2017-04-15 04:27] LABS: Basophils % 0.2 %; Eosinophils # 0.1 K/mcL (0.0-0.6); Eosinophils % 1.1 %; Hematocrit 31.5 % (35.3-44.9); Hemoglobin 9.4 g/dL (11.5-15.4); Lymphocytes # 0.7 K/mcL (0.6-4.6); Mean Corpuscular HGB Conc 29.8 g/dL (31.6-35.5); Mean Corpuscular Hemoglobin 23.7 pg (28.0-33.3); Mean Corpuscular Volume 79.5 fL (83.0-100.0); Mean Platelet Volume 8.9 fL (9.4-12.4); Monocytes # 0.5 K/mcL (0.0-1.3); Monocytes % 4.9 %; Neutrophils # 8.4 K/mcL (1.6-8.9); Platelet Count 289 K/mcL (140-400); Red Blood Count 3.96 M/mcL (3.82-4.97); Red Cell Distribution Width 19.3 % (11.5-14.5); Segmented Neutrophils % 85.8 %
[2017-04-15 04:43] LABS: Calcium 8.9 mg/dL (8.6-10.8); Potassium 4.4 mEq/L (3.5-4.5)
[2017-04-15] MEDS: Piperacillin/Tazobactam 3.375 GM in D5% in Water (Mini-Bag+) 100 ML IVPB SCH ×2 (05:28→17:42)
[2017-04-15] MEDS: Budesonide/Formoterol 80/4.5 MDI IH SCH (07:54)
[2017-04-15] MEDS: Aspirin 81 MG TAB.CHEW PO SCH (09:48)
[2017-04-15] MEDS: Multivit/Ca/Min/Fe/FA 1 TAB TABLET PO SCH (09:49)
[2017-04-15] MEDS: predniSONE 10 MG TABLET PO SCH (09:49)
[2017-04-15] MEDS: ALPRAZolam 0.25 MG TABLET PO SCH ×2 (09:49→22:32)
[2017-04-15] MEDS: *HR* Rivaroxaban 15 MG TABLET PO SCH (09:49)
[2017-04-15] MEDS: Furosemide 40 MG TABLET PO SCH ×2 (09:49→10:00)
[2017-04-15] MEDS: Isosorbide MONOnitrate (24 HR) 60 MG TAB.ER.24H PO SCH ×2 (09:49→09:57)
[2017-04-15] MEDS: Pantoprazole 40 MG VIAL IVP SCH (09:50)
[2017-04-15] MEDS: Diltiazem CD (24hr) 240 MG CAPSULE PO SCH ×2 (09:50→09:57)
[2017-04-15] MEDS: (Cyanocobalamin (Vitamin B-12) [Vitamin B-12] 100 MCG PO SCH (09:51)
--- NOTE | 2017-04-15 16:51 | Internal Med Progress Note ---
Date of Encounter: 04/15/17 Time of Encounter: 16:48 - Assessment and plan (1) Cellulitis Current Visit: Yes Status: Acute Qualifiers: Site of cellulitis: extremity Site of cellulitis of extremity: lower extremity Laterality: left Qualified Code(s): L03.116 - Cellulitis of left lower limb (2) Sepsis Current Visit: Yes Status: Acute Qualifiers: Sepsis type: Escherichia coli Qualified Code(s): A41.51 - Sepsis due to Escherichia coli [E. coli] (3) Hypertension Current Visit: Yes Status: Chronic Qualifiers: Hypertension type: essential hypertension Qualified Code(s): I10 - Essential (primary) hypertension (4) Atrial fibrillation Current Visit: Yes Status: Chronic Qualifiers: Atrial fibrillation type: paroxysmal Qualified Code(s): I48.0 - Paroxysmal atrial fibrillation (5) Hyperlipidemia Current Visit: Yes Status: Chronic Qualifiers: Hyperlipidemia type: pure hypercholesterolemia Qualified Code(s): E78.00 - Pure hypercholesterolemia, unspecified; E78.0 - Pure hypercholesterolemia (6) CKD (chronic kidney disease) stage 3, GFR 30-59 ml/min Current Visit: Yes Status: Chronic (7) COPD (chronic obstructive pulmonary disease) Current Visit: Yes Status: Chronic Qualifiers: COPD type: unspecified COPD Qualified Code(s): J44.9 - Chronic obstructive pulmonary disease, unspecified - Subjective Interval history: 86-year-old female with past medical history of rheumatoid arthritis while she is chronically on steroids presented with left lower extremity cellulitis and saphenous vein partial clot. She is on Xarelto. Started on IV vancomycin and Zosyn with presumption of sepsis. However her numbers were not bad enough at any point anyways. DC vancomycin. Lower extremity examination showed swelling without any Homans sign and redness which is resolving. IV Zosyn will be started to see if he can later switch her to Augmentin before discharge. - Constitutional Vitals: Temp Pulse Resp BP Pulse Ox 97.5 F L 83 14 101/66 94 04/15/17 10:30 04/15/17 10:30 04/15/17 10:30 04/15/17 10:30 04/15/17 10:30 General appearance: Present: cooperative, A&O X 3, pleasant, no acute distress, answers questions appropriately - Head Head exam: Present: atraumatic, normocephalic - Eye Eye exam: Present: PERRL, conjuntiva pink, sclera anicteric Pupils: Present: PERRL - Neck Neck exam general surgery: Present: supple, trachea midline. Absent: lymphadenopathy - Respiratory Respiratory exam: Present: CTAB. Absent: accessory muscle use, rales, rhonchi, wheezes - Cardiovascular Cardiovascular exam: Present: RRR, +S1, +S2. Absent: diastolic murmur, gallop, rubs, systolic murmur - GI/Abdominal GI/Abdominal exam: Present: normal bowel sounds, soft, no peritoneal signs. Absent: distended, tenderness - Extremities Exam Extremities exam: Present: warm, radial pulses palpable and symmetrical. Absent : calf tenderness, cyanotic, pedal edema Additional comments: Left lower extremity swelling and redness no tenderness - Neurological Exam Neurological exam: Present: CN II-XII intact, oriented X3, no focal deficits. Absent: pronater drift, facial droop, speech deficit - Skin Skin exam: Present: dry, intact Internal Medicine: Result - Labs CBC & Chem 7: 04/15/17 04:09 04/15/17 04:09 Labs: Short CBC 04/15/17 Range/Units 04:09 WBC 9.8 (4.3-11.1) K/mcL Hgb 9.4 L (11.5-15.4) g/dL Hct 31.5 L (35.3-44.9) % Plt Count 289 (140-400) K/mcL Neutrophils # 8.4 (1.6-8.9) K/mcL BMP 04/15/17 04:09 Sodium 143 Potassium 4.4 D Chloride 110 H Carbon Dioxide 25 BUN 26 H Creatinine 1.25 H Glucose 97 Calcium 8.9 - ABG Interpretation ABG results: PT/INR, D-dimer PT 18.5 Seconds (9.4-12.1) H 04/14/17 11:53 Consult Discharge Plan - Plan Referrals: Tyler Sharma Jr, MD [Primary Care Provider] -
[2017-04-15] MEDS: traZODone 50 MG TABLET PO SCH (22:33)
[2017-04-16] MEDS: Ipratropium/Albuterol Neb 3 ML IH SCH ×4 (00:14→11:25)
[2017-04-16] MEDS: Piperacillin/Tazobactam 3.375 GM in D5% in Water (Mini-Bag+) 100 ML IVPB SCH (04:05)
[2017-04-16] MEDS: Budesonide/Formoterol 80/4.5 MDI IH SCH (08:06)
[2017-04-16] MEDS: Diltiazem CD (24hr) 240 MG CAPSULE PO SCH (08:10)
[2017-04-16] MEDS: *HR* Rivaroxaban 15 MG TABLET PO SCH (08:10)
[2017-04-16] MEDS: ALPRAZolam 0.25 MG TABLET PO SCH ×2 (08:10→20:50)
[2017-04-16] MEDS: predniSONE 10 MG TABLET PO SCH (08:10)
[2017-04-16] MEDS: Isosorbide MONOnitrate (24 HR) 60 MG TAB.ER.24H PO SCH (08:10)
[2017-04-16] MEDS: Furosemide 40 MG TABLET PO SCH (08:11)
[2017-04-16] MEDS: Aspirin 81 MG TAB.CHEW PO SCH (08:11)
[2017-04-16] MEDS: Multivit/Ca/Min/Fe/FA 1 TAB TABLET PO SCH (08:11)
[2017-04-16] MEDS: (Cyanocobalamin (Vitamin B-12) [Vitamin B-12] 100 MCG PO SCH (08:11)
[2017-04-16] MEDS ORDERED: Levofloxacin 750 MG/150 ML 750 MG/150 ML BAG IVPB SCH ×2 (10:00→14:00)
[2017-04-16] MEDS ORDERED: Ipratropium/Albuterol Neb 3 ML IH PRN (12:40)
--- NOTE | 2017-04-16 15:03 | Internal Med Progress Note ---
Date of Encounter: 04/16/17 Time of Encounter: 09:35 - Assessment and plan (1) Chest pain Current Visit: Yes Status: Acute Assessment and plan: Patient with chest pain that is now improved. Troponins are trending up. Cardiology consulted. Patient wants conservative medical management at this time. On Xarelto for anticoagulation. Continue aspirin, statin. Follow cardiology recommendations. EKG shows ST depression in anterolateral leads. Changed from prior EKG done in December 2016. High risk for complications. Qualifiers: Chest pain type: chest pain due to myocardial ischemia Ischemic chest pain type: unstable angina pectoris Qualified Code(s): I20.0 - Unstable angina (2) Sepsis Current Visit: Yes Status: Acute Assessment and plan: With Escherichia coli. We will repeat blood cultures. Will change antibiotic to Levaquin and transition to oral Levaquin if blood cultures remain negative. Qualifiers: Sepsis type: Escherichia coli Qualified Code(s): A41.51 - Sepsis due to Escherichia coli [E. coli] (3) Cellulitis Current Visit: Yes Status: Acute Assessment and plan: Erythema and swelling in left lower extremity resolving. Qualifiers: Site of cellulitis: extremity Site of cellulitis of extremity: lower extremity Laterality: left Qualified Code(s): L03.116 - Cellulitis of left lower limb (4) CKD (chronic kidney disease) stage 3, GFR 30-59 ml/min Current Visit: Yes Status: Chronic Assessment and plan: Stable renal function. (5) COPD (chronic obstructive pulmonary disease) Current Visit: Yes Status: Chronic Assessment and plan: Chronic. No acute exacerbation. Continue duo nebs as needed Qualifiers: COPD type: unspecified COPD Qualified Code(s): J44.9 - Chronic obstructive pulmonary disease, unspecified (6) Diastolic CHF Current Visit: Yes Status: Chronic Assessment and plan: Continue Lasix. Not in acute exacerbation Qualifiers: Congestive heart failure chronicity: chronic Qualified Code(s): I50.32 - Chronic diastolic (congestive) heart failure (7) Hyperlipidemia Current Visit: Yes Status: Chronic Assessment and plan: Continue statin Qualifiers: Hyperlipidemia type: pure hypercholesterolemia Qualified Code(s): E78.00 - Pure hypercholesterolemia, unspecified; E78.0 - Pure hypercholesterolemia (8) Hypertension Current Visit: Yes Status: Chronic Assessment and plan: Blood pressure is well controlled Qualifiers: Hypertension type: essential hypertension Qualified Code(s): I10 - Essential (primary) hypertension - Subjective Interval history: Patient is awake and alert. Doing well overall. Had an episode of chest pain last night. Since then she has improved. No longer has chest pain at this time. No shortness of breath either. No fever or chills reported overnight. No dizziness. - Constitutional Vitals: Temp Pulse Resp BP Pulse Ox 97.5 F L 85 18 94/56 97 04/16/17 14:22 04/16/17 14:22 04/16/17 14:22 04/16/17 14:22 04/16/17 14:22 General appearance: Present: cooperative, A&O X 3, pleasant, no acute distress, answers questions appropriately - Neck Neck exam general surgery: Present: supple, trachea midline. Absent: lymphadenopathy - Respiratory Respiratory exam: Present: CTAB. Absent: accessory muscle use, rales, rhonchi, wheezes - Cardiovascular Cardiovascular exam: Present: RRR, +S1, +S2. Absent: diastolic murmur, gallop, rubs, systolic murmur - GI/Abdominal GI/Abdominal exam: Present: normal bowel sounds, soft, no peritoneal signs. Absent: distended, tenderness - Extremities Exam Extremities exam: Present: warm, radial pulses palpable and symmetrical. Absent : calf tenderness, cyanotic, pedal edema, tenderness - Skin Skin exam: Present: dry, intact Internal Medicine: Result - Labs CBC & Chem 7: 04/15/17 04:09 04/15/17 04:09 Labs: Cardiac Enzymes 04/15/17 04/16/17 04/16/17 Range/Units 23:16 05:34 14:16 Troponin I 0.05 H* 0.35 H* 0.97 H* (0-0.03) ng/mL - ABG Interpretation ABG results: PT/INR, D-dimer PT 18.5 Seconds (9.4-12.1) H 04/14/17 11:53 Consult Discharge Plan - Plan Referrals: Tyler Sharma Jr, MD [Primary Care Provider] -
--- NOTE | 2017-04-16 16:07 | Cardiology Consult Note ---
Date of Encounter: 04/16/17 Time of Encounter: 15:59 Assessment and Plan (1) NSTEMI (non-ST elevated myocardial infarction) Current Visit: Yes Status: Acute Ms. Thomas is a pleasant 86 y/o with known CAD, remote CABG. Mild troponin elevation with mild elevation. I suspect this may represent a mild NSTEMI. Recommend continue aspirin/statin/CCB/Imdur therapy. Intermittent symptoms and findings of prior stress test discussed. Patient offered medical therapy +/- [facility]. Patient continues to request medical therapy. Given her advanced age, relatively small defect on stress test, and current lack of symptoms - I agree with her decision. Since on Xarelto for PAF, will hold on Heparin drip. 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 Please call with any questions or concerns. Thanks, Christiano Hardin DO, [facility] Discussion w patient/family: The assessment and plan as outlined above was discussed with the patient and/or family members who expressed understanding and agreement. All questions were answered. Thank you for involving us in the care of your patient. Please call with any questions. History of Present Illness Consult date: 04/16/17 Requesting physician: Pau Jennings Consult reason: Troponin elevation Chief complaint: Left leg pain History of present illness: Ms. Thomas is a 86 year old female who originally presented with left leg pain. Currently being treated for cellulitis. Reported chest discomfort last night. Mild troponin elevation noted. Reports occasional chest discomfort, often during overnight hours. Known CAD, remote CABG. Prior abnormal stress test, elected for medical therapy. Chest pain free during my evaluation earlier this morning. Previous testing: TTE 12/06/2016: LVEF 65-70%. Mild diastolic dysfunction. Mild aortic stenosis. Mild TR. Mild to moderate pHTN. Stress test 08/28/2016: LVEF > 70%. Small to medium sized, moderate intensity, reversible defect in the basal to mid inferior segments c/w ischemia. Troponins: 0.03, 0.05, 0.35, 0.97. Past Med Surg Social Fam HX - Past Medical History Medical history: arthritis, atrial fibrillation, coronary artery disease, hyperlipidemia, hypertension, RA, renal disease Psychiatric history: no psych history - Past Surgical History Surgical History: cataract, coronary bypass (CABG), orthopedic, other - Social History Smoking Status: Never smoker Smokeless Tobacco Status: No Alcohol use: none Drug use: none - Family History Father Family Member Ethnicity: Non- Living Status: Hx Family Cardiac Disorders: Yes (MS) Hx Family Respiratory Disorders: No Hx Family Cancer: No Hx Family GI Disorders: No Hx Family Endocrine Disorder: No Hx Family Neuromuscular Disorders: No Hx Family Neurologic Disorders: No Hx Family HEENT Disorders: No Hx Family Autoimmune Disorders: No Mother Family Member Ethnicity: Non- Living Status: Hx Family Cardiac Disorders: Yes (Stroke) Medications and Allergies Aspirin 81 mg PO DAILY 05/07/15 [History] Atorvastatin [Lipitor] 40 mg PO HS 05/07/15 [History] Diltiazem CD (24hr) [Cardizem CD] 240 mg PO DAILY 05/07/15 [History] Budesonide/Formoterol Fumarate [Symbicort 80-4.5 Mcg Inhaler] 1 puff IH DAILY [History] Multivitamin [Multi-Day Vitamins] 1 tab PO DAILY 11/14/15 [History] TraZODone 50 mg PO HS 11/14/15 [History] Isosorbide MONOnitrate (24 HR) [Imdur] 90 mg PO DAILY 12/05/16 [History] Nitroglycerin [Nitrostat] 0.4 mg SL Q5M PRN 12/05/16 [History] Oxycodone HCl/Acetaminophen [Percocet 5-325 mg Tablet] 1 tab PO Q6H PRN [History] Rivaroxaban [Xarelto] 15 mg PO DAILY #0 tab 01/06/17 [Rx] ALPRAZolam [Xanax 0.25 MG Tablet] 0.25 mg PO BID 04/12/17 [History] Cyanocobalamin (Vitamin B-12) [Vitamin B-12] 100 mcg PO DAILY 04/12/17 [History] Furosemide [Lasix] 40 mg PO DAILY 04/12/17 [History] predniSONE [PredniSONE] 10 mg PO DAILY 04/12/17 [History] 3 Allergy/AdvReac Type Severity Reaction Status Date / Time clindamycin AdvReac See Verified 04/12/17 08:44 Comments hydrocodone [From Vicodin] AdvReac Nausea Verified 04/12/17 07:46 ranolazine [From Ranexa] AdvReac Rash Verified 04/12/17 08:44 All Systems Review: A 10-system review of systems was performed and is negative for pertinent findings except as documented above in the HPI. - Cardiovascular Cardiovascular: as per HPI, chest pain at rest - Musculoskeletal Musculoskeletal: other (left pain, swelling) Physical Examination Vital Signs, Last 4 Hours Temp Pulse Resp BP Pulse Ox 04/16/17 14:22 97.5 F L 85 18 94/56 97 General: Conversant, No Apparent Distress HEENT: Atraumatic, Normocephaly, Mucus Membranes Moist Neck: No JVD, Normal carotid pulses Cardiac: Other (Regular, mild jared) Lungs: Normal Breath Sounds, No Wheeze, Rales, Rhonchi Neuro: Alert and responsive Abdomen: Soft Skin: No rashes noted on visualized skin Musculoskeletal: No Chest Wall Tenderness Extremities: No Clubbing, No Cyanosis, Other (Erythema, swelling left leg) Results 04/15/17 04:09 04/15/17 04:09 Lab Results 04/15/17 04/16/17 04/16/17 23:16 05:34 14:16 Troponin I 0.05 H* 0.35 H* 0.97 H* - Imaging and Cardiology Stress Test: report reviewed Echo: report reviewed Consult Discharge Plan - Plan Referrals: Tyler Sharma Jr, MD [Primary Care Provider] -
--- NOTE | 2017-04-16 17:17 | Electrocardiograph Report ---
[address] [place], [place] [address] Test Date: 2017-04-15 Pat Name: Ginger Thomas Department: 115 Room: 3A55 Gender: F Argon Tester: : 1930 Requested By: Caren Kamara Order Number: [id number] Reading MD: Monique Wallace Measurements Intervals [place] Rate: 97 P: 55 TN: 150 QRS: 31 QRSD: 89 T: 42 QT: 318 QTc: 372 Interpretive Statements SINUS RHYTHM WITH OCCASIONAL SUPRAVENTRICULAR PREMATURE COMPLEXES MODERATE ST DEPRESSION Electronically Signed On 04-16-2017 17:16:13 EDT by Monique Wallace
[2017-04-16] MEDS: traZODone 50 MG TABLET PO SCH (20:50)
--- NOTE | 2017-04-17 08:10 | Electrocardiograph Report ---
[address] [place] [address] Test Date: 2017-04-16 Pat Name: Ginger Thomas Department: 115 Room: 3A55 Gender: F Transcript Clerk: [id number] : 1930 Requested By: Pau Jennings Order Number: [id number] Reading MD: Monique Wallace Measurements Intervals [place] Rate: 69 P: 67 AR: 156 QRS: 35 QRSD: 89 T: 39 QT: 376 QTc: 395 Interpretive Statements SINUS RHYTHM Electronically Signed On 04-17-2017 8:08:57 EDT by Monique Wallace
[2017-04-17] MEDS: Budesonide/Formoterol 80/4.5 MDI IH SCH (08:17)
[2017-04-17] MEDS: *HR* Rivaroxaban 15 MG TABLET PO SCH (09:40)
[2017-04-17] MEDS: ALPRAZolam 0.25 MG TABLET PO SCH (09:40)
[2017-04-17] MEDS: Furosemide 40 MG TABLET PO SCH (09:40)
[2017-04-17] MEDS: Diltiazem CD (24hr) 240 MG CAPSULE PO SCH (09:40)
[2017-04-17] MEDS: predniSONE 10 MG TABLET PO SCH (09:40)
[2017-04-17] MEDS: Multivit/Ca/Min/Fe/FA 1 TAB TABLET PO SCH (09:40)
[2017-04-17] MEDS: Aspirin 81 MG TAB.CHEW PO SCH (09:40)
[2017-04-17] MEDS: Isosorbide MONOnitrate (24 HR) 60 MG TAB.ER.24H PO SCH (09:41)
[2017-04-17] MEDS: (Cyanocobalamin (Vitamin B-12) [Vitamin B-12] 100 MCG PO SCH (10:14)
[2017-04-17 10:48] VITALS: BP 112/69
--- NOTE | 2017-04-17 11:49 | Discharge Summary ---
Date of Encounter: 04/17/17 Time of Encounter: 11:45 - Discharge Diagnosis (1) Sepsis Priority: Primary Status: Acute Qualifiers: Sepsis type: Escherichia coli Qualified Code(s): A41.51 - Sepsis due to Escherichia coli [E. coli] (2) Chest pain Priority: Secondary Status: Acute Qualifiers: Chest pain type: chest pain due to myocardial ischemia Ischemic chest pain type: unstable angina pectoris Qualified Code(s): I20.0 - Unstable angina (3) Cellulitis Priority: Secondary Status: Acute Qualifiers: Site of cellulitis: extremity Site of cellulitis of extremity: lower extremity Laterality: left Qualified Code(s): L03.116 - Cellulitis of left lower limb (4) CKD (chronic kidney disease) stage 3, GFR 30-59 ml/min Priority: Secondary Status: Chronic (5) COPD (chronic obstructive pulmonary disease) Priority: Secondary Status: Chronic Qualifiers: COPD type: unspecified COPD Qualified Code(s): J44.9 - Chronic obstructive pulmonary disease, unspecified (6) Diastolic CHF Priority: Secondary Status: Chronic Qualifiers: Congestive heart failure chronicity: chronic Qualified Code(s): I50.32 - Chronic diastolic (congestive) heart failure (7) Hyperlipidemia Priority: Secondary Status: Chronic Qualifiers: Hyperlipidemia type: pure hypercholesterolemia Qualified Code(s): E78.00 - Pure hypercholesterolemia, unspecified; E78.0 - Pure hypercholesterolemia (8) Hypertension Priority: Secondary Status: Chronic Qualifiers: Hypertension type: essential hypertension Qualified Code(s): I10 - Essential (primary) hypertension (9) NSTEMI (non-ST elevated myocardial infarction) Priority: Secondary Status: Acute - Discharge Medications Prescriptions: Acetaminophen [Tylenol] 650 mg PO Q6HR PRN #30 tablet PRN Reason: Pain ALPRAZolam [Xanax 0.25 MG Tablet] 0.25 mg PO BID #20 tablet levoFLOXacin [Levofloxacin] 750 mg PO DAILY #9 tablet Home Medications: Aspirin 81 mg PO DAILY 05/07/15 [History] Atorvastatin [Lipitor] 40 mg PO HS 05/07/15 [History] Diltiazem CD (24hr) [Cardizem CD] 240 mg PO DAILY 05/07/15 [History] Budesonide/Formoterol Fumarate [Symbicort 80-4.5 Mcg Inhaler] 1 puff IH DAILY [History] Multivitamin [Multi-Day Vitamins] 1 tab PO DAILY 11/14/15 [History] TraZODone 50 mg PO HS 11/14/15 [History] Isosorbide MONOnitrate (24 HR) [Imdur] 90 mg PO DAILY 12/05/16 [History] Nitroglycerin [Nitrostat] 0.4 mg SL Q5M PRN 12/05/16 [History] Rivaroxaban [Xarelto] 15 mg PO DAILY #0 tab 01/06/17 [Rx] Cyanocobalamin (Vitamin B-12) [Vitamin B-12] 100 mcg PO DAILY 04/12/17 [History] Furosemide [Lasix] 40 mg PO DAILY 04/12/17 [History] predniSONE [PredniSONE] 10 mg PO DAILY 04/12/17 [History] ALPRAZolam [Xanax 0.25 MG Tablet] 0.25 mg PO BID #20 tablet 04/17/17 [Rx] Acetaminophen [Tylenol] 650 mg PO Q6HR PRN #30 tablet 04/17/17 [Rx] levoFLOXacin [Levofloxacin] 750 mg PO DAILY #9 tablet 04/17/17 [Rx] Allergies/Adverse Reactions: 3 Allergy/AdvReac Type Severity Reaction Status Date / Time clindamycin AdvReac See Verified 04/12/17 08:44 Comments hydrocodone [From Vicodin] AdvReac Nausea Verified 04/12/17 07:46 ranolazine [From Ranexa] AdvReac Rash Verified 04/12/17 08:44 Procedures/tests Complete & Pending: Procedures Performed prior 72 hours Category Date Time Status ECG 12 lead ECG [ECG] Routine Y 04/16/17 07:13 Completed EKG [ECG 12 lead ECG] [ECG] Routine Y 04/15/17 23:00 Completed Date of admission: 04/12/17 10:55 Primary care physician: Tyler Sharma Jr, MD Consults: 04/12/17 11:02 Consult to Occupational Therapy [CONS] Routine Comment: Evaluate, develop and implement POC Reason for Consult: debility Consult to Physical Therapy [CONS] Routine Comment: Evaluate, develop and implement POC Reason for Consult: debility 04/12/17 11:10 Consult to Remote Medical Coder [CONS] Routine Reason for SW Consult: discharge planning for home health set up 04/16/17 07:38 Consult to Cardiology [CONS] Routine Comment: Consulting Provider: Lamberto Jara Reason for Consult: Chest pain/ Troponin elevation Time Notified: 07:38 Call Completed: Yes 04/16/17 10:35 Consult to Invasive Line Access Team [CONS] Routine Reason for Consult: limited iv access, possible long-term medications Line Type: EPIV Discharging clinician: Pau Jennings Anticipated date of discharge: 04/17/17 - Patient Status Disposition: Transfer SNF Condition: Good Functional capacity at discharge: uses cane/walker Overall status at discharge: patient is progressing back to baseline - Discharge Instructions Instructions: Chest Pain (DC), Cellulitis (DC), Sepsis (DC) Follow Up With: Tyler Sharma Jr, MD [Primary Care Provider] - (in 1-2 weeks) - Diet and Activity Activity: as per physical therapy, increase activity as tolerated Diet: low fat, low cholesterol, low salt diet Hospital course: Ms. Thomas is a 86 year old female patient with history of atrial fibrillation, hypertension, chronic kidney disease stage III, diastolic congestive heart failure, coronary artery disease presented to the ER with complaints of left lower extremity swelling and redness. She initially believed this was due to her history of rheumatoid arthritis and kept her lower extremity elevated with no improvement in her symptoms. On arrival to the ER, she had fever and leukocytosis and was diagnosed with sepsis related to acute cellulitis. She was started on treatment with IV antibiotics and IV fluids and treated per sepsis protocol. She initially improved with this treatment plan. 1 set out of 2 sets of blood cultures was positive for Escherichia coli. This was believed to be the source of her sepsis and patient continued to receive IV antibiotics targeting this organism. She has clinically improved since then. She has had no further episodes of fevers. Her cellulitis has mostly subsided. She developed chest pain 2 days back and was found to have a rise in her troponins. She was diagnosed with NSTEMI Cardiology was consulted. Per their discussion with the patient, no further cardiac workup was planned. Conservative medical management was recommended. Patient is already on aspirin , statin and Xarelto. Her chest pain has since resolved. She is now stable for discharge. She will be discharged to skilled rehabilitation for physical therapy. She will complete antibiotic course for sepsis and Escherichia coli bacteremia with levofloxacin to complete 14 day treatment course. Patient's CODE STATUS has been clarified with her. She wishes to be DNR/DNI. - Time Spent with Patient Total time spent providing and/or coordinating discharge services: Greater than 30 minutes (45 min) - Constitutional Vitals: Temp Pulse Resp BP Pulse Ox 97.5 F L 85 16 112/69 95 04/17/17 10:45 04/17/17 10:45 04/17/17 10:45 04/17/17 10:45 04/17/17 10:45 General appearance: Present: cooperative, A&O X 3, pleasant, no acute distress, answers questions appropriately - Respiratory Respiratory exam: Present: CTAB. Absent: accessory muscle use, rales, rhonchi, wheezes - Cardiovascular Cardiovascular exam: Present: RRR, +S1, +S2. Absent: diastolic murmur, gallop, rubs, systolic murmur - GI/Abdominal GI/Abdominal exam: Present: normal bowel sounds, soft, no peritoneal signs. Absent: distended, tenderness - Extremities Exam Extremities exam: Present: warm, radial pulses palpable and symmetrical. Absent : calf tenderness, cyanotic, pedal edema, tenderness Additional comments: erythema resolved - Neurological Exam Neurological exam: Present: CN II-XII intact, oriented X3, no focal deficits. Absent: facial droop, speech deficit - Skin Skin exam: Present: dry, intact - VTE Documentation of Mechanical Device: Intermittent pneumatic compression device
--- NOTE | 2017-04-17 11:51 | Physician Discharge Referral ---
ExtendedCare Referral Info Provider in Charge after Transfer: PCP Institutional Level of Care: Skilled - Diagnosis (1) Sepsis Priority: Primary Status: Acute (2) Chest pain Priority: Secondary Status: Acute (3) Cellulitis Priority: Secondary Status: Acute (4) CKD (chronic kidney disease) stage 3, GFR 30-59 ml/min Priority: Secondary Status: Chronic (5) COPD (chronic obstructive pulmonary disease) Priority: Secondary Status: Chronic (6) Diastolic CHF Priority: Secondary Status: Chronic (7) Hyperlipidemia Priority: Secondary Status: Chronic (8) Hypertension Priority: Secondary Status: Chronic Prognosis: Fair Aware of Diagnosis: Patient Aware of Prognosis: Patient - Transfer Medications Prescriptions: levoFLOXacin [Levofloxacin] 750 mg PO DAILY #9 tablet Home Medications: Aspirin 81 mg PO DAILY 05/07/15 [History] Atorvastatin [Lipitor] 40 mg PO HS 05/07/15 [History] Diltiazem CD (24hr) [Cardizem CD] 240 mg PO DAILY 05/07/15 [History] Budesonide/Formoterol Fumarate [Symbicort 80-4.5 Mcg Inhaler] 1 puff IH DAILY [History] Multivitamin [Multi-Day Vitamins] 1 tab PO DAILY 11/14/15 [History] TraZODone 50 mg PO HS 11/14/15 [History] Isosorbide MONOnitrate (24 HR) [Imdur] 90 mg PO DAILY 12/05/16 [History] Nitroglycerin [Nitrostat] 0.4 mg SL Q5M PRN 12/05/16 [History] Oxycodone HCl/Acetaminophen [Percocet 5-325 mg Tablet] 1 tab PO Q6H PRN [History] Rivaroxaban [Xarelto] 15 mg PO DAILY #0 tab 01/06/17 [Rx] ALPRAZolam [Xanax 0.25 MG Tablet] 0.25 mg PO BID 04/12/17 [History] Cyanocobalamin (Vitamin B-12) [Vitamin B-12] 100 mcg PO DAILY 04/12/17 [History] Furosemide [Lasix] 40 mg PO DAILY 04/12/17 [History] predniSONE [PredniSONE] 10 mg PO DAILY 04/12/17 [History] levoFLOXacin [Levofloxacin] 750 mg PO DAILY #9 tablet 11/01/17 [Rx] Allergies/Adverse Reactions: 3 Allergy/AdvReac Type Severity Reaction Status Date / Time clindamycin AdvReac See Verified 04/12/17 08:44 Comments hydrocodone [From Vicodin] AdvReac Nausea Verified 04/12/17 07:46 ranolazine [From Ranexa] AdvReac Rash Verified 04/12/17 08:44 - Respiratory Orders Smoking Cessation: Smoking cessation has been advised. For more information, call the [place] Tobacco Quit Line at 2-071-KPOS-NOW. - Ancillary Orders May consult with Dentist, Psychiatric Tech, Senior Applications Developer PRN - Advance Directives Code Status: DNR-Arrest/Don't Intubate - Mobility Orders Ambulate (per PT) - Rehabiliation Orders Rehab Potential: Fair Rehab Orders: Evaluation for Physical Therapy, Evaluation for Occupational Therapy - Diet Orders Cardiac CERTIFICATION: I certify that the transfer of the above named patient to an Extended Care Facility is necessary for the continuing treatment of the diagnosis listed. The above information is true and accurate reflection of patient's current condition. Confidential - Redisclosure prohibited without a patient's written consent.
== END 2017-04-17 17:28 | DRG 871 ==
LOC: EMEROO 07:38 → 3ANU 07:38 → SUATTDRO 10:55
PROVIDERS: ADMIT Hospitalist; ATTEND Internal Medicine

== ENCOUNTER 2018-12-12 11:58 | Inpatient (IN) ==
--- NOTE | 2018-12-12 12:31 | Emergency Department Note ---
Disposition Clinical Impression: Severe sepsis, Acute cystitis with hematuria Disposition: Admitted As Inpatient Condition: Fair Forms: ED Satisfaction Letter Time of Disposition: 15:24 General Adult HPI - General Chief complaint: ED Vaginal Bleeding Stated complaint: vag bleeding Time Seen by Provider: 12/12/18 12:15 Source: EMS Limitations: no limitations - History of Present Illness HPI Narrative: Patient is a 88-year-old female presents here to the emergency room with dysuria. Patient apparently has been having some hematuria as well. She states symptoms been ongoing for the last 2 days. The patient denies any severe abdom inal pain. She does complain of some nausea. The patient denies any fevers or chills. She has not had any black or bloody stools. To me she denies any vaginal bleeding. The patient denies any other focal weakness or numbness. The patient is chronically on 2 L nasal cannula oxygen at living facility. Patient denies any other cough, shortness of breath. The patient denies any chest pain. The patient denies any significant back pain, focal weakness or focal numbness. Otherwise nothing else makes symptoms better or worse. Pain Scale: 0 - Related Data Home Medications Medication Instructions Recorded Confirmed Acetaminophen [Tylenol] 325 mg PO Q6HR PRN 12/12/18 12/12/18 Amiodarone [Cordarone] 100 mg PO DAILY 12/12/18 12/12/18 Aspirin [Lo-Dose Aspirin EC] 81 mg PO DAILY 12/12/18 12/12/18 Atorvastatin [Lipitor] 40 mg PO HS 12/12/18 12/12/18 Benzonatate [Tessalon] 100 mg PO TID PRN 12/12/18 12/12/18 Cyanocobalamin (Vitamin B-12) 100 mcg PO DAILY 12/12/18 12/12/18 [Vitamin B-12] Ferrous Sulfate [Iron] 325 mg PO BID 12/12/18 12/12/18 Fluticasone/Vilanterol [Breo 1 each IH DAILY 12/12/18 12/12/18 Ellipta 100-25 Mcg INH] Furosemide [Lasix] 40 mg PO BID 12/12/18 12/12/18 Ipratropium/Albuterol Neb [Duoneb] 3 ml IH Q6HR PRN 12/12/18 12/12/18 Isosorbide MONOnitrate [Isosorbide 90 mg PO DAILY 12/12/18 12/12/18 Mononitrate] Levothyroxine [Synthroid] 25 mcg PO 0612/12/18 12/12/18 Meclizine [Antivert] 12.5 mg PO TID PRN 12/12/18 12/12/18 Nitroglycerin [Nitrostat] 0.4 mg SL Q5-10MIN PRN 12/12/18 12/12/18 Omeprazole [PriLOSEC] 40 mg PO DAILY 12/12/18 12/12/18 Potassium Chloride [K-Tab ER] 10 meq PO BID 12/12/18 12/12/18 Rivaroxaban [Xarelto] 15 mg PO DAILY 12/12/18 12/12/18 Sertraline [Zoloft] 25 mg PO DAILY 12/12/18 12/12/18 dilTIAZem HCl [Diltiazem 24Hr ER] 120 mg PO DAILY 12/12/18 12/12/18 predniSONE [Prednisone] 10 mg PO DAILY 12/12/18 12/12/18 Allergies Allergy/AdvReac Type Severity Reaction Status Date / Time clindamycin AdvReac See Verified 11/05/18 17:59 Comments hydrocodone [From Vicodin] AdvReac Nausea Verified 11/05/18 17:59 ranolazine [From Ranexa] AdvReac Rash Verified 11/05/18 17:59 Review of Systems: As mentioned per history of present illness and as follows. Constitutional: Negative for chills or fever HENT: Negative for sore throat. Eyes: Negative for visual disturbance Respiratory: Negative for shortness of breath. Cardiovascular: Negative for palpitations. Gastrointestinal: Negative for abdominal pain Genitourinary: Negative for dysuria Musculoskeletal: Negative for back pain. Skin: Negative for rash. Neurological: Negative for focal weakness Psychiatric/Behavioral: Negative for depression Past Medical History - Past Medical History Medical history: Reports: arthritis, atrial fibrillation, CHF, coronary artery disease, GERD, hyperlipidemia, hypertension, myocardial infarction, RA, renal disease, thyroid disease Surgical history: Reports: cataract, coronary bypass (CABG), orthopedic, other Psychiatric history: Reports: no psych history SECURITY PATROL OFFICER history: Reports: no SECURITY PATROL OFFICER history - Social History Smoking Status: Never smoker Smokeless Tobacco Status: No Alcohol use: Reports: none Drug use: Reports: none Physical Exam PHYSICAL EXAM Constitutional: Well developed, No acute distress, Non-toxic appearance. HENT: Normocephalic, Atraumatic, Bilateral external ears normal, Oropharynx moist, No oral exudates, Nose normal. Neck- Normal range of motion, No tenderness, Supple. Eyes: PERRL, EOMI, Conjunctiva normal,. Cardiovascular: Regular rate and rhythm without clicks, rubs, gallops . +2 systolic murmur appreciated Respiratory: Normal breath sounds, No respiratory distress, No wheezing, rhonchi, or crackles. GI: Soft, patient does have some mild suprapubic distention on examination, no evidence of guarding or peritoneal signs. Bowel sounds are active. Musculoskeletal: Good range of motion in all major joints. No tenderness to palpation or major deformities noted. Equal strength noted to the upper and lower extremities. Integument: Warm, Dry, No erythema, No rash. No edema. Neurologic: Alert & oriented x 3, Normal sensory function, No focal deficits noted. CN II-XII grossly intact. - General Limitations: no limitations General appearance: alert, in no apparent distress Course Vital Signs Temperature 99.2 F 12/12/18 11:59 Pulse Rate 78 12/12/18 11:59 Respiratory Rate 18 12/12/18 11:59 Blood Pressure 124/73 12/12/18 11:59 O2 Sat by Pulse Oximetry 94 12/12/18 11:59 Temperature 99.2 F 12/12/18 11:59 Pulse Rate 67 12/12/18 15:13 Respiratory Rate 18 12/12/18 15:13 Blood Pressure 117/62 12/12/18 15:13 O2 Sat by Pulse Oximetry 96 12/12/18 15:13 Oxygen Delivery Oxygen Delivery Room Air Medical Decision Making - [facility] Narrative Medical decision making narrative: Patient does appear to have severe sepsis without septic shock in the emergency room. The patient appears to have a significant urinary tract infection. The patient appears to have acute cystitis with hematuria. The patient does have an elevated white count. The patient's pressures have been mildly hypotensive however not severe. The patient is otherwise resting very comfortably. The patient is in no distress, she is not feeling lightheaded, dizzy. The patient was given IV antibiotics here in the emergency room. Blood cultures and lactic acid have been obtained. Patient at this point in time is going to be admitted to the floor. Case has been discussed in full detail with the hospitalist. The patient will be admitted in stable condition. CRITICAL CARE TIME OF 35 MINUTES PERFORMING THIS INDIVIDUAL OUTSIDE OF SEPARATELY BILLABLE PROCEDURES. THIS INCLUDES BEDSIDE EVALUATION, INTERPRETATI ON OF EKG AND LAB TESTS AND CONSULTATIONS. Impression 1. Severe sepsis without septic shock 2. Urosepsis - Lab Data Result diagrams: 12/12/18 12:55 12/12/18 12:55 Lab Results 12/12/18 12/12/18 12/12/18 Range/Units 12:55 12:55 12:55 WBC 17.3 H (4.3-11.1) K/mcL RBC 3.82 (3.82-4.97) M/mcL Hgb 11.9 (11.5-15.4) g/dL Hct 37.4 (35.3-44.9) % MCV 97.9 (83.0-100.0) fL MCH 31.2 (28.0-33.3) pg MCHC 31.8 (31.6-35.5) g/dL RDW 15.8 H (11.5-14.5) % Plt Count 219 (140-400) K/mcL MPV 9.0 L (9.4-12.4) fL Immature Gran % 1.0 (0-4) % Seg Neutrophils % 83.4 % Lymphocytes % 4.3 % Monocytes % 9.8 % Eosinophils % 1.3 % Basophils % 0.2 % Neutrophils # 14.4 H (1.6-8.9) K/mcL Lymphocytes # 0.7 (0.6-4.6) K/mcL Monocytes # 1.7 H (0.0-1.3) K/mcL Eosinophils # 0.2 (0.0-0.6) K/mcL Basophils # 0.0 (0.0-0.2) K/mcL PT 14.4 H (9.4-12.1) Seconds INR 1.3 Sodium 145 (136-145) mEq/L Potassium 3.4 L (3.5-5.1) mEq/L Chloride 100 (98-107) mEq/L Carbon Dioxide 33 H (23-29) mEq/L BUN 24 H (8-23) mg/dL Creatinine 1.28 H (0.60-1.20) mg/dL Est GFR ( Amer) 48 L (> 60) Est GFR (Non-Af Amer) 39 L (> 60) BUN/Creatinine Ratio 19 (6-26) Glucose 94 (70-105) mg/dL Calculated Osmolality 304 H (280-300) Lactic Acid (0.5-2.2) mmol/L Calcium 8.8 (8.6-10.3) mg/dL Phosphorus (2.7-4.5) mg/dL Magnesium (1.6-2.6) mg/dL Ur Specimen Adequacy Urine Color (Yellow) Urine Clarity (Clear) Urine pH (5.0-8.0) pH Units Ur Specific [place] (1.010-1.025) Urine Protein (Neg-Trace) mg/dL Urine Glucose (UA) (Normal) mg/dL Urine Ketones (Negative) mg/dL Urine Blood (Negative) Urine Nitrite (Negative) Urine Bilirubin (Negative) Urine Urobilinogen (Normal) mg/dL Ur Leukocyte Esterase (Negative) Urine Microscopic RBC (0-3) per hpf Urine Microscopic WBC (0-3) per hpf Ur Squamous Epith Cells (None-Few) per lpf Urine Bacteria (None-Few) per hpf Hyaline Casts (None-Few) per lpf Ur Culture Indicated? (NO) Blood Type Antibody Screen 12/12/18 12/12/18 12/12/18 Range/Units 12:55 13:31 14:10 WBC (4.3-11.1) K/mcL RBC (3.82-4.97) M/mcL Hgb (11.5-15.4) g/dL Hct (35.3-44.9) % MCV (83.0-100.0) fL MCH (28.0-33.3) pg MCHC (31.6-35.5) g/dL RDW (11.5-14.5) % Plt Count (140-400) K/mcL MPV (9.4-12.4) fL Immature Gran % (0-4) % Seg Neutrophils % % Lymphocytes % % Monocytes % % Eosinophils % % Basophils % % Neutrophils # (1.6-8.9) K/mcL Lymphocytes # (0.6-4.6) K/mcL Monocytes # (0.0-1.3) K/mcL Eosinophils # (0.0-0.6) K/mcL Basophils # (0.0-0.2) K/mcL PT (9.4-12.1) Seconds INR Sodium (136-145) mEq/L Potassium (3.5-5.1) mEq/L Chloride (98-107) mEq/L Carbon Dioxide (23-29) mEq/L BUN (8-23) mg/dL Creatinine (0.60-1.20) mg/dL Est GFR ( Amer) (> 60) Est GFR (Non-Af Amer) (> 60) BUN/Creatinine Ratio (6-26) Glucose (70-105) mg/dL Calculated Osmolality (280-300) Lactic Acid 0.7 (0.5-2.2) mmol/L Calcium (8.6-10.3) mg/dL Phosphorus (2.7-4.5) mg/dL Magnesium (1.6-2.6) mg/dL Ur Specimen Adequacy See below A Urine Color Dark Yellow (Yellow) Urine Clarity Turbid A (Clear) Urine pH 6.5 (5.0-8.0) pH Units Ur Specific [place] 1.015 (1.010-1.025) Urine Protein 100 H (Neg-Trace) mg/dL Urine Glucose (UA) Normal (Normal) mg/dL Urine Ketones Trace H (Negative) mg/dL Urine Blood Large H (Negative) Urine Nitrite Positive A (Negative) Urine Bilirubin Negative (Negative) Urine Urobilinogen Normal (Normal) mg/dL Ur Leukocyte Esterase Large H (Negative) Urine Microscopic RBC TNTC H (0-3) per hpf Urine Microscopic WBC TNTC H (0-3) per hpf Ur Squamous Epith Cells Many H (None-Few) per lpf Urine Bacteria Few (None-Few) per hpf Hyaline Casts None Seen (None-Few) per lpf Ur Culture Indicated? YES A (NO) Blood Type O POSITIVE Antibody Screen NEGATIVE 12/12/18 Range/Units 14:10 WBC (4.3-11.1) K/mcL RBC (3.82-4.97) M/mcL Hgb (11.5-15.4) g/dL Hct (35.3-44.9) % MCV (83.0-100.0) fL MCH (28.0-33.3) pg MCHC (31.6-35.5) g/dL RDW (11.5-14.5) % Plt Count (140-400) K/mcL MPV (9.4-12.4) fL Immature Gran % (0-4) % Seg Neutrophils % % Lymphocytes % % Monocytes % % Eosinophils % % Basophils % % Neutrophils # (1.6-8.9) K/mcL Lymphocytes # (0.6-4.6) K/mcL Monocytes # (0.0-1.3) K/mcL Eosinophils # (0.0-0.6) K/mcL Basophils # (0.0-0.2) K/mcL PT (9.4-12.1) Seconds INR Sodium (136-145) mEq/L Potassium (3.5-5.1) mEq/L Chloride (98-107) mEq/L Carbon Dioxide (23-29) mEq/L BUN (8-23) mg/dL Creatinine (0.60-1.20) mg/dL Est GFR ( Amer) (> 60) Est GFR (Non-Af Amer) (> 60) BUN/Creatinine Ratio (6-26) Glucose (70-105) mg/dL Calculated Osmolality (280-300) Lactic Acid (0.5-2.2) mmol/L Calcium (8.6-10.3) mg/dL Phosphorus 3.0 (2.7-4.5) mg/dL Magnesium 2.0 (1.6-2.6) mg/dL Ur Specimen Adequacy Urine Color (Yellow) Urine Clarity (Clear) Urine pH (5.0-8.0) pH Units Ur Specific [place] (1.010-1.025) Urine Protein (Neg-Trace) mg/dL Urine Glucose (UA) (Normal) mg/dL Urine Ketones (Negative) mg/dL Urine Blood (Negative) Urine Nitrite (Negative) Urine Bilirubin (Negative) Urine Urobilinogen (Normal) mg/dL Ur Leukocyte Esterase (Negative) Urine Microscopic RBC (0-3) per hpf Urine Microscopic WBC (0-3) per hpf Ur Squamous Epith Cells (None-Few) per lpf Urine Bacteria (None-Few) per hpf Hyaline Casts (None-Few) per lpf Ur Culture Indicated? (NO) Blood Type Antibody Screen Critical Care Time Critical Care Time: Yes Total Critical Care Time: 35 Attestation: CRITICAL CARE TIME OF 35 MINUTES PERFORMING THIS INDIVIDUAL OUTSIDE OF SEPARATELY BILLABLE PROCEDURES. THIS INCLUDES BEDSIDE EVALUATION, INTERPRETATION OF EKG AND LAB TESTS AND CONSULTATIONS.
[2018-12-12 13:15] LABS: Basophils % 0.2 %; Eosinophils # 0.2 K/mcL (0.0-0.6); Eosinophils % 1.3 %; Hematocrit 37.4 % (35.3-44.9); Hemoglobin 11.9 g/dL (11.5-15.4); Lymphocytes # 0.7 K/mcL (0.6-4.6); Lymphocytes % 4.3 %; Mean Corpuscular HGB Conc 31.8 g/dL (31.6-35.5); Mean Corpuscular Hemoglobin 31.2 pg (28.0-33.3); Mean Corpuscular Volume 97.9 fL (83.0-100.0); Monocytes # 1.7 K/mcL (0.0-1.3); Monocytes % 9.8 %; Neutrophils # 14.4 K/mcL (1.6-8.9); Platelet Count 219 K/mcL (140-400); Red Blood Count 3.82 M/mcL (3.82-4.97); Red Cell Distribution Width 15.8 % (11.5-14.5); Segmented Neutrophils % 83.4 %; White Blood Count 17.3 K/mcL (4.3-11.1)
[2018-12-12 13:23] LABS: INR 1.3; Prothrombin Time 14.4 Seconds (9.4-12.1)
[2018-12-12 13:41] LABS: Bilirubin,Urine Negative (Negative); Blood,Urine Large (Negative); Clarity,Urine Turbid (Clear); Glucose,Urine (UA) Normal (Normal); Ketones,Urine Trace mg/dL (Negative); Leukocyte Esterase,Urine Large (Negative); Nitrite,Urine Positive (Negative); PH,Urine 6.5 pH Units (5.0-8.0); Protein,Urine 100 mg/dL (Neg-Trace); Specific Gravity,Urine 1.015 (1.010-1.025); Urobilinogen,Urine Normal (Normal)
[2018-12-12 13:42] LABS: Color,Urine Dark Yellow (Yellow)
[2018-12-12 13:44] LABS: Bacteria,Urine Few per hpf (None-Few); Hyaline Casts,Urine None Seen per lpf (None-Few); RBC,Urine TNTC per hpf (0-3); Squamous Epithelial Cell,Urine Many per lpf (None-Few); WBC,Urine TNTC per hpf (0-3)
[2018-12-12] MEDS ORDERED: 0.9 % Sodium Chloride 1,000 ML IVC ONE (13:52)
[2018-12-12] MEDS ORDERED: cefTRIAXone 1,000 MG in 0.9 % Sodium Chloride Mini Bag 100 ML IVPB ONE (13:53)
[2018-12-12 14:09] LABS: Calcium 8.8 mg/dL (8.6-10.3); Potassium 3.4 mEq/L (3.5-5.1)
--- NOTE | 2018-12-12 16:48 | Internal Med History&Physical ---
Date of Encounter: 12/12/18 Time of Encounter: 16:43 Internal Medicine - H&P: HPI Chief complaint: Fever Admitted From: Home Plans for Post Hospital Care: Home History of present illness: Ms. Thomas is a 88 year old female with history of hearing loss (HL), Pt states she used to live alone but then she fell and was admitted to [facility] and from there she was then referred to SNF at [facility] for rehab. Pt states she has been at [facility] since around May 2018. Pt states she had been having fever and chills. She reports having dysuria, she states symptoms have been going on for 2 days. She denies vomiting but admits to nausea. Denies abdominal pain. Denies generalized weakness. She is chronically on 2L NC of oxygen. Reports coughing and sputum. She states " I think I have a cold." In ED Vitals BP 117/62, HR 67, RR 18, Temp 99.2 WBC 17.3, hgb 11.9, hct 37.4, plt 219. PT 14.4, INR 1.3 Na 145, K 3.4, BUN 24, Cr 1.28 Urine analysis showing large blood, large leuks, and WBC TNTC. CODE STATUS DNRCC Past Med Surg Social Fam HX - Past Medical History Medical history: arthritis, atrial fibrillation, CHF, coronary artery disease, GERD, hyperlipidemia, hypertension, myocardial infarction, RA, renal disease, thyroid disease Additional medical history: Raynaud's disease Psychiatric history: no psych history - Past Surgical History Surgical History: cataract, coronary bypass (CABG), orthopedic, other Additional surgical history: CABG 1996 bypass x2, R HAND SURGERY - Social History Smoking Status: Never smoker Smokeless Tobacco Status: No Alcohol use: none Drug use: none - Family History Father Family Member Ethnicity: Non- Living Status: Hx Family Cardiac Disorders: Yes ([place]) Hx Family Respiratory Disorders: No Hx Family Cancer: No Hx Family GI Disorders: No Hx Family Endocrine Disorder: No Hx Family Neuromuscular Disorders: No Hx Family Neurologic Disorders: No Hx Family HEENT Disorders: No Hx Family Autoimmune Disorders: No Mother Family Member Ethnicity: Non- Living Status: Hx Family Cardiac Disorders: Yes (Stroke) Internal Medicine - H&P: Meds Acetaminophen [Tylenol] 325 mg PO Q6HR PRN 12/12/18 [History] Amiodarone [Cordarone] 100 mg PO DAILY 12/12/18 [History] Aspirin [Lo-Dose Aspirin EC] 81 mg PO DAILY 12/12/18 [History] Atorvastatin [Lipitor] 40 mg PO HS 12/12/18 [History] Benzonatate [Tessalon] 100 mg PO TID PRN 12/12/18 [History] Cyanocobalamin (Vitamin B-12) [Vitamin B-12] 100 mcg PO DAILY 12/12/18 [History] Ferrous Sulfate [Iron] 325 mg PO BID 12/12/18 [History] Fluticasone/Vilanterol [Breo Ellipta 100-25 Mcg INH] 1 each IH DAILY 12/12/18 [History] Furosemide [Lasix] 40 mg PO BID 12/12/18 [History] Ipratropium/Albuterol Neb [Duoneb] 3 ml IH Q6HR PRN 12/12/18 [History] Isosorbide MONOnitrate [Isosorbide Mononitrate] 90 mg PO DAILY 12/12/18 [History] Levothyroxine [Synthroid] 25 mcg PO 30 12/12/18 [History] Meclizine [Antivert] 12.5 mg PO TID PRN 12/12/18 [History] Nitroglycerin [Nitrostat] 0.4 mg SL Q5-10MIN PRN 12/12/18 [History] Omeprazole [PriLOSEC] 40 mg PO DAILY 12/12/18 [History] Potassium Chloride [K-Tab ER] 10 meq PO BID 12/12/18 [History] Rivaroxaban [Xarelto] 15 mg PO DAILY 12/12/18 [History] Sertraline [Zoloft] 25 mg PO DAILY 12/12/18 [History] dilTIAZem HCl [Diltiazem 24Hr ER] 120 mg PO DAILY 12/12/18 [History] predniSONE [Prednisone] 10 mg PO DAILY 12/12/18 [History] Allergy/AdvReac Type Severity Reaction Status Date / Time clindamycin AdvReac See Verified 11/05/18 17:59 Comments hydrocodone [From Vicodin] AdvReac Nausea Verified 11/05/18 17:59 ranolazine [From Ranexa] AdvReac Rash Verified 11/05/18 17:59 All Systems PM: A 10-system review of systems was performed and is negative for pertinent find ings except as documented above in the HPI. - Constitutional Vitals: Temp Pulse Resp BP Pulse Ox 99.2 F 67 18 117/62 96 12/12/18 11:59 12/12/18 15:13 12/12/18 15:13 12/12/18 15:13 12/12/18 15:13 General appearance: Present: A&O X 3, no acute distress, obese Exam: . - Head Head exam: Present: atraumatic, normocephalic - Eye Eye exam: Present: PERRL, conjuntiva pink, sclera anicteric Pupils: Present: PERRL - Neck Neck exam general surgery: Present: supple, trachea midline. Absent: lymphadenopathy - Respiratory Respiratory exam: Absent: accessory muscle use, rales, rhonchi, wheezes Additional comments: Bibasilar crackles and expiratory wheezing - Cardiovascular Cardiovascular exam: Present: RRR, +S1, +S2. Absent: diastolic murmur, gallop, rubs, systolic murmur - GI/Abdominal GI/Abdominal exam: Present: normal bowel sounds, soft, no peritoneal signs. Absent: distended, tenderness - Extremities Exam Extremities exam: Present: pedal edema, warm, radial pulses palpable and symmetrical. Absent: calf tenderness, cyanotic - Neurological Exam Neurological exam: Present: CN II-XII intact, oriented X3, no focal deficits. Absent: pronater drift, facial droop, speech deficit - Skin Skin exam: Present: dry, intact Additional comments: scar orm previous open heart surgery Internal Med - H&P Results - Labs CBC & Chem 7: 12/12/18 12:55 12/12/18 12:55 Labs: Short CBC 12/12/18 Range/Units 12:55 WBC 17.3 H (4.3-11.1) K/mcL Hgb 11.9 (11.5-15.4) g/dL Hct 37.4 (35.3-44.9) % Plt Count 219 (140-400) K/mcL Neutrophils # 14.4 H (1.6-8.9) K/mcL BMP 12/12/18 12:55 Sodium 145 Potassium 3.4 L Chloride 100 Carbon Dioxide 33 H BUN 24 H Creatinine 1.28 H Glucose 94 Calcium 8.8 Urine 12/12/18 Range/Units 13:31 Urine Color Dark Yellow (Yellow) Urine Clarity Turbid A (Clear) Urine pH 6.5 (5.0-8.0) pH Units Ur Specific [place] 1.015 (1.010-1.025) Urine Protein 100 H (Neg-Trace) mg/dL Urine Glucose (UA) Normal (Normal) mg/dL - Assessment and Plan (1) Acute cystitis with hematuria Current Visit: Yes Status: Acute Assessment and plan: Will place patient on Zosyn for now. Will send urine for cultures. Pt denies abdominal or flank pain. (2) CKD (chronic kidney disease) stage 3, GFR 30-59 ml/min Current Visit: No Status: Acute Assessment and plan: Cr appears to be above her baseline so she may have some mild TRINA. Will give IVF and reassess in am. (3) COPD (chronic obstructive pulmonary disease) Current Visit: No Status: Chronic Assessment and plan: Not in exacerbation. Resuming home nebs. Qualifiers: COPD type: chronic bronchitis Qualified Code(s): J41.0 - Simple chronic bronchitis (4) Hypertension Current Visit: No Status: Chronic Assessment and plan: Cardizem, Imdur Qualifiers: Hypertension type: essential hypertension Qualified Code(s): I10 - Essential (primary) hypertension (5) Physical deconditioning Current Visit: No Status: Acute Assessment and plan: Consult PT and OT to see. (6) Atrial fibrillation Current Visit: No Status: Chronic Assessment and plan: On cardizem, Xarelto, and Amiodarone Qualifiers: Atrial fibrillation type: paroxysmal Qualified Code(s): I48.0 - Paroxysmal atrial fibrillation (7) CAD (coronary artery disease) Current Visit: No Status: Chronic Assessment and plan: ASA and Lipitor Qualifiers: Coronary Disease-Associated Artery/Lesion type: bypass graft, autologous artery Associated angina: without angina Qualified Code(s): I25.810 - Atherosclerosis of coronary artery bypass graft(s) without angina pectoris (8) Hypokalemia Current Visit: No Status: Acute Assessment and plan: Will resume home K supplement. (9) Cough Current Visit: No Status: Acute Assessment and plan: Will check chest x ray (10) Chronic diastolic heart failure Current Visit: Yes Status: Acute Assessment and plan: Holding home dose lasix for now due to possible TRINA. (11) Chronic respiratory failure Current Visit: Yes Status: Acute Assessment and plan: on home oxygen at 2L NC 07/01 Qualifiers: Qualified Code(s): J96.10 - Chronic respiratory failure, unspecified whether with hypoxia or hypercapnia - Time Spent With Patient Total time spent is greater than 50% in coordination of care (as documented) at patient's floor/unit and/or counseling patient: Greater than 35 minutes
[2018-12-12] MEDS ORDERED: Benzonatate 100 MG CAPSULE PO PRN (17:17)
[2018-12-12] MEDS ORDERED: Nitroglycerin 0.4 MG TAB.SUBL SL PRN (17:17)
[2018-12-12] MEDS ORDERED: Naloxone 0.4 MG/ML INJ IVP PRN (17:37)
[2018-12-12] MEDS ORDERED: Acetaminophen 325 MG TABLET PO PRN (17:37)
[2018-12-12] MEDS ORDERED: Ondansetron 4 MG/2 ML VIAL IVP PRN (17:37)
[2018-12-12] MEDS ORDERED: 0.9 % Sodium Chloride 1,000 ML IVC SCH (18:00)
[2018-12-12] MEDS: Ipratropium/Albuterol Neb 3 ML IH PRN (22:57)
[2018-12-13] MEDS: Levothyroxine 25 MCG TABLET PO SCH (06:13)
[2018-12-13 06:32] LABS: Basophils # 0.1 K/mcL (0.0-0.2); Basophils % 0.4 %; Eosinophils # 0.3 K/mcL (0.0-0.6); Eosinophils % 2.6 %; Hematocrit 34.5 % (35.3-44.9); Hemoglobin 10.7 g/dL (11.5-15.4); Immature Granulocytes % 0.8 % (0-4); Lymphocytes # 0.7 K/mcL (0.6-4.6); Lymphocytes % 5.4 %; Mean Corpuscular Hemoglobin 30.7 pg (28.0-33.3); Mean Corpuscular Volume 99.1 fL (83.0-100.0); Monocytes # 1.1 K/mcL (0.0-1.3); Monocytes % 8.9 %; Neutrophils # 9.8 K/mcL (1.6-8.9); Platelet Count 201 K/mcL (140-400); Red Blood Count 3.48 M/mcL (3.82-4.97); Red Cell Distribution Width 15.8 % (11.5-14.5); Segmented Neutrophils % 81.9 %
[2018-12-13 06:50] LABS: Calcium 8.2 mg/dL (8.6-10.3); Potassium 3.5 mEq/L (3.5-5.1)
[2018-12-13] MEDS: *HR* Amiodarone 200 MG TABLET PO SCH (09:04)
[2018-12-13] MEDS: Isosorbide MONOnitrate (24 HR) 30 MG TAB.ER.24H PO SCH (09:05)
[2018-12-13] MEDS: Diltiazem CD (24hr) 120 MG CAPSULE PO SCH (09:05)
[2018-12-13] MEDS: Aspirin Enteric Coated 81 MG Tablet PO SCH (09:05)
[2018-12-13] MEDS: (Cyanocobalamin (Vitamin B-12) [Vitamin B-12] 100 MCG PO SCH (09:06)
[2018-12-13] MEDS: (Fluticasone/Vilanterol [Breo Ellipta 100-25 Mcg Inh] IH SCH (09:06)
--- NOTE | 2018-12-13 10:49 | Internal Med Progress Note ---
Hospitalist Progress Note - Encounter Date of Encounter: 12/13/18 Time of Encounter: 10:47 - Subjective Interval History: Pt is in good spirits. Sitting in chair next to her bed, pleasant. She denies chest pain or worsening SOB. She dneies fever, chills, N/V or diarrhea. She denies abdominal pain. She denies cough or sputum. - Exam Vitals: Temp Pulse Resp BP Pulse Ox 98.0 F 62 16 119/72 99 12/13/18 07:04 12/13/18 07:04 12/13/18 07:04 12/13/18 07:04 12/13/18 07:04 Exam: General appearance: Present: A&O X 3, no acute distress, obese Exam: Head exam: Present: atraumatic, normocephalic Eye exam: Present: PERRL, conjuntiva pink, sclera anicteric Pupils: Present: PERRL Neck exam general surgery: Present: supple, trachea midline. Absent: lymphadenopathy Respiratory exam: Absent: accessory muscle use, rales, rhonchi, wheezes Additional comments: Bibasilar crackles improved and no expiratory wheezing Cardiovascular exam: Present: RRR, +S1, +S2. Absent: diastolic murmur, gallop, rubs, systolic murmur GI/Abdominal exam: Present: normal bowel sounds, soft, no peritoneal signs. Absent: distended, tenderness Extremities exam: Present: pedal edema but mild, warm, radial pulses palpable and symmetrical. Absent: calf tenderness, cyanotic Neurological exam: Present: CN II-XII intact, oriented X3, no focal deficits. Absent: pronater drift, facial droop, speech deficit Skin exam: Present: dry, intact - Assessment and Plan (1) Acute cystitis with hematuria Current Visit: Yes Status: Acute Assessment and Plan: On Zosyn for now. Urine for cultures incubating. WBC trending down. Pt denies abdominal or flank pain. (2) CKD (chronic kidney disease) stage 3, GFR 30-59 ml/min Current Visit: No Status: Acute Assessment and Plan: Cr above her baseline likely due to mild TRINA. Given IVF and Cr down from 1.28 to 1.07. (3) COPD (chronic obstructive pulmonary disease) Current Visit: No Status: Chronic Assessment and Plan: Not in exacerbation. Resuming home nebs. (4) Hypertension Current Visit: No Status: Chronic Assessment and Plan: Cardizem and Imdur (5) Physical deconditioning Current Visit: No Status: Acute Assessment and Plan: Consult PT and OT to see. (6) Atrial fibrillation Current Visit: No Status: Chronic Assessment and Plan: On cardizem, Xarelto, and Amiodarone (7) CAD (coronary artery disease) Current Visit: No Status: Chronic Assessment and Plan: ASA and Lipitor (8) Hypokalemia Current Visit: No Status: Acute Assessment and Plan: Will resume home K supplement. (9) Cough Current Visit: No Status: Acute Assessment and Plan: Developing PNA vs atelectasis on CXR. Pt's cough much improved. On Zosyn and will order incentive spirometry. Chest x ray XR/XR chest 1V IMPRESSION: Cardiomegaly with pulmonary vascular congestion. Right basilar airspace opacity may represent developing pneumonia versus atelectasis. This is new from prior exam. Follow-up following medical treatment course recommended document complete resolution. D/ / Jet Chaparro / Jet Chaparro Interpreting Provider: Jet Chaparro :4 (10) Chronic diastolic heart failure Current Visit: Yes Status: Acute Assessment and Plan: Held home dose lasix for now due to TRINA. Will likely resume in am. (11) Chronic respiratory failure Current Visit: Yes Status: Acute Assessment and Plan: on home oxygen at 2L NC 24/ DVT Prophylaxis: Xarelto - Time Spent with Patient Total time spent is greater than 50% in coordination of care (as documented) at patient's floor/unit and/or counseling patient: less than 15 minutes Plan of Care Discussed with: patient Internal Medicine: Result - Labs CBC & Chem 7: 12/13/18 05:44 12/13/18 05:44 Labs: Short CBC 12/12/18 12/13/18 Range/Units 12:55 05:44 WBC 17.3 H 12.0 H (4.3-11.1) K/mcL Hgb 11.9 10.7 L (11.5-15.4) g/dL Hct 37.4 34.5 L (35.3-44.9) % Plt Count 219 201 (140-400) K/mcL Neutrophils # 14.4 H 9.8 H (1.6-8.9) K/mcL BMP 12/12/18 12/13/18 12:55 05:44 Sodium 145 145 Potassium 3.4 L 3.5 Chloride 100 103 Carbon Dioxide 33 H 33 H BUN 24 H 18 Creatinine 1.28 H 1.07 Glucose 94 85 Calcium 8.8 8.2 L Urine 12/12/18 Range/Units 13:31 Urine Color Dark Yellow (Yellow) Urine Clarity Turbid A (Clear) Urine pH 6.5 (5.0-8.0) pH Units Ur Specific [place] 1.015 (1.010-1.025) Urine Protein 100 H (Neg-Trace) mg/dL Urine Glucose (UA) Normal (Normal) mg/dL - ABG Interpretation ABG results: PT/INR, D-dimer PT 14.4 Seconds (9.4-12.1) H 12/12/18 12:55 - Impressions Impressions Chest X-Ray 12/12/18 17:00 IMPRESSION: Cardiomegaly with pulmonary vascular congestion. Right basilar airspace opacity may represent developing pneumonia versus atelectasis. This is new from prior exam. Follow-up following medical treatment course recommended document complete resolution. D/ / Jet Chaparro / Jet Chaparro Interpreting Provider: Jet Chaparro Consult Discharge Plan - Plan Referrals: Tyler Sharma Jr, MD [Primary Care Provider] - (3) COPD (chronic obstructive pulmonary disease) Qualifiers: COPD type: chronic bronchitis Qualified Code(s): J41.0 - Simple chronic bronchitis (4) Hypertension Qualifiers: Hypertension type: essential hypertension Qualified Code(s): I10 - Essential (primary) hypertension (6) Atrial fibrillation Qualifiers: Atrial fibrillation type: paroxysmal Qualified Code(s): I48.0 - Paroxysmal atrial fibrillation (7) CAD (coronary artery disease) Qualifiers: Coronary Disease-Associated Artery/Lesion type: bypass graft, autologous artery Associated angina: without angina Qualified Code(s): I25.810 - Atherosclerosis of coronary artery bypass graft(s) without angina pectoris (11) Chronic respiratory failure Qualifiers: Qualified Code(s): J96.10 - Chronic respiratory failure, unspecified whether with hypoxia or hypercapnia
[2018-12-13] MEDS: cefTRIAXone 1,000 MG in Water for inj. (sterile) 10 ML IVP SCH (11:46)
[2018-12-13] MEDS: *HR* Rivaroxaban 15 MG TABLET PO SCH (17:22)
[2018-12-14 00:48] LABS: Basophils # 0.1 K/mcL (0.0-0.2); Basophils % 0.6 %; Eosinophils # 0.4 K/mcL (0.0-0.6); Eosinophils % 3.9 %; Hematocrit 31.8 % (35.3-44.9); Immature Granulocytes % 1.1 % (0-4); Lymphocytes # 0.7 K/mcL (0.6-4.6); Lymphocytes % 6.8 %; Mean Corpuscular HGB Conc 31.4 g/dL (31.6-35.5); Mean Corpuscular Hemoglobin 31.1 pg (28.0-33.3); Mean Corpuscular Volume 98.8 fL (83.0-100.0); Monocytes # 1.1 K/mcL (0.0-1.3); Neutrophils # 7.4 K/mcL (1.6-8.9); Platelet Count 187 K/mcL (140-400); Red Blood Count 3.22 M/mcL (3.82-4.97); Red Cell Distribution Width 15.6 % (11.5-14.5); Segmented Neutrophils % 76.6 %; White Blood Count 9.6 K/mcL (4.3-11.1)
[2018-12-14 01:07] LABS: BUN/Creatinine Ratio 22 (6-26); Blood Urea Nitrogen 22 mg/dL (8-23); Calcium 8.1 mg/dL (8.6-10.3); Carbon Dioxide 29 mEq/L (23-29); Chloride 105 mEq/L (98-107); Glucose 112 mg/dL (70-105); Osmolality,Calculated 298 (280-300); Potassium 3.7 mEq/L (3.5-5.1); Sodium 142 mEq/L (136-145); eGFR For African Americans > 60 (> 60); eGFR For Non-African Americans 52 (> 60)
[2018-12-14] MEDS: Levothyroxine 25 MCG TABLET PO SCH (05:46)
[2018-12-14] MEDS: (Fluticasone/Vilanterol [Breo Ellipta 100-25 Mcg Inh] IH SCH (07:21)
[2018-12-14] MEDS: cefTRIAXone 1,000 MG in Water for inj. (sterile) 10 ML IVP SCH (09:08)
[2018-12-14] MEDS: Aspirin Enteric Coated 81 MG Tablet PO SCH (09:09)
[2018-12-14] MEDS: Isosorbide MONOnitrate (24 HR) 30 MG TAB.ER.24H PO SCH (09:09)
[2018-12-14] MEDS: Diltiazem CD (24hr) 120 MG CAPSULE PO SCH (09:09)
[2018-12-14] MEDS: *HR* Amiodarone 200 MG TABLET PO SCH (09:09)
[2018-12-14] MEDS: (Cyanocobalamin (Vitamin B-12) [Vitamin B-12] 100 MCG PO SCH (09:15)
--- NOTE | 2018-12-14 12:50 | Internal Med Progress Note ---
Hospitalist Progress Note - Encounter Date of Encounter: 12/14/18 Time of Encounter: 12:48 - Subjective Interval History: Pt had BM this am. She denies fever, chills, N/V or diarrhea. She denies CP or SOB. She denies abdominal pain. - Exam Vitals: Temp Pulse Resp BP Pulse Ox 98.1 F 69 16 104/58 95 12/14/18 11:08 12/14/18 11:08 12/14/18 11:08 12/14/18 11:08 12/14/18 11:08 Exam: General appearance: Present: A&O X 3, no acute distress, obese Exam: Head exam: Present: atraumatic, normocephalic Eye exam: Present: PERRL, conjuntiva pink, sclera anicteric Pupils: Present: PERRL Neck exam general surgery: Present: supple, trachea midline. Absent: lymphadenopathy Respiratory exam: Absent: accessory muscle use, rales, rhonchi, wheezes Additional comments: Bibasilar crackles improved and no expiratory wheezing Cardiovascular exam: Present: RRR, +S1, +S2. Absent: diastolic murmur, gallop, rubs, systolic murmur GI/Abdominal exam: Present: normal bowel sounds, soft, no peritoneal signs. Absent: distended, tenderness Extremities exam: Present: pedal edema but mild, warm, radial pulses palpable and symmetrical. Absent: calf tenderness, cyanotic Neurological exam: Present: CN II-XII intact, oriented X3, no focal deficits. Absent: pronater drift, facial droop, speech deficit Skin exam: Present: dry, intact - Assessment and Plan (1) Acute cystitis with hematuria Current Visit: Yes Status: Acute Assessment and Plan: Due to E coli Was on Rocephin now on Omnicef. Urine for cultures incubating. WBC down from 17.3 --> 12.0--> 9.6. Pt denies abdominal or flank pain. (2) CKD (chronic kidney disease) stage 3, GFR 30-59 ml/min Current Visit: No Status: Acute Assessment and Plan: Cr above her baseline likely due to mild TRINA. Given IVF and Cr down from 1.28 to 1.07 to 1.01 (3) COPD (chronic obstructive pulmonary disease) Current Visit: No Status: Chronic Assessment and Plan: Not in exacerbation. Resuming home nebs. (4) Hypertension Current Visit: No Status: Chronic Assessment and Plan: Cardizem and Imdur (5) Physical deconditioning Current Visit: No Status: Acute Assessment and Plan: Consulted PT and OT to see and recommending more rehab. (6) Atrial fibrillation Current Visit: No Status: Chronic Assessment and Plan: On cardizem, Xarelto, and Amiodarone (7) CAD (coronary artery disease) Current Visit: No Status: Chronic Assessment and Plan: ASA and Lipitor (8) Hypokalemia Current Visit: No Status: Acute Assessment and Plan: Will resume home K supplement. (9) Cough Current Visit: No Status: Acute Assessment and Plan: Developing PNA vs atelectasis on CXR. Pt's cough much improved. Given one time Zosyn in ED but on Rocephin on the floor for uti. Ordered incentive spirometry. Most likely atelectasis. WBC resolved on Rocephin. Will continue to monitor Chest x ray XR/XR chest 1V IMPRESSION: Cardiomegaly with pulmonary vascular congestion. Right basilar airspace opacity may represent developing pneumonia versus atelectasis. This is new from prior exam. Follow-up following medical treatment course recommended document complete resolution. D/ / Jet Chaparro / Jet Chaparro Interpreting Provider: Jet Chaparro :4 (10) Chronic diastolic heart failure Current Visit: Yes Status: Acute Assessment and Plan: Held home dose lasix for now due to TRINA. Will likely resume Lasix 40 mg PO QD today and her BID home dose at discharge. (11) Chronic respiratory failure Current Visit: Yes Status: Acute Assessment and Plan: on home oxygen at 2L NC 07/01 DVT Prophylaxis: Xarelto - Summary of Assessment and Plan Summary of Assessment and Plan: History of present illness: Dr. Alvarez Ms. Thomas is a 88 year old female with history of hearing loss (HL), Pt states she used to live alone but then she fell and was admitted to [place] and from there she was then referred to SNF at [facility] for rehab. Pt states she has been at [facility] since around May 2018. Pt states she had been having fever and chills. She reports having dysuria, she states symptoms have been going on for 2 days. She denies vomiting but admits to nausea. Denies abdominal pain. Denies generalized weakness. She is chronically on 2L NC of oxygen. Reports coughing and sputum. She states " I think I have a cold." - Time Spent with Patient Total time spent is greater than 50% in coordination of care (as documented) at patient's floor/unit and/or counseling patient: less than 15 minutes Plan of Care Discussed with: patient Internal Medicine: Result - Labs CBC & Chem 7: 12/14/18 00:19 12/14/18 00:19 Labs: Short CBC 12/14/18 Range/Units 00:19 WBC 9.6 (4.3-11.1) K/mcL Hgb 10.0 L (11.5-15.4) g/dL Hct 31.8 L (35.3-44.9) % Plt Count 187 (140-400) K/mcL Neutrophils # 7.4 (1.6-8.9) K/mcL BMP 12/14/18 00:19 Sodium 142 Potassium 3.7 Chloride 105 Carbon Dioxide 29 BUN 22 Creatinine 1.01 Glucose 112 H Calcium 8.1 L - ABG Interpretation ABG results: PT/INR, D-dimer PT 14.4 Seconds (9.4-12.1) H 12/12/18 12:55 Consult Discharge Plan - Plan Referrals: Tyler Sharma Jr, MD [Primary Care Provider] - (3) COPD (chronic obstructive pulmonary disease) Qualifiers: COPD type: chronic bronchitis Qualified Code(s): J41.0 - Simple chronic bronchitis (4) Hypertension Qualifiers: Hypertension type: essential hypertension Qualified Code(s): I10 - Essential (primary) hypertension (6) Atrial fibrillation Qualifiers: Atrial fibrillation type: paroxysmal Qualified Code(s): I48.0 - Paroxysmal atrial fibrillation (7) CAD (coronary artery disease) Qualifiers: Coronary Disease-Associated Artery/Lesion type: bypass graft, autologous artery Associated angina: without angina Qualified Code(s): I25.810 - At herosclerosis of coronary artery bypass graft(s) without angina pectoris (11) Chronic respiratory failure Qualifiers: Qualified Code(s): J96.10 - Chronic respiratory failure, unspecified whether with hypoxia or hypercapnia
[2018-12-14] MEDS: Ipratropium/Albuterol Neb 3 ML IH PRN ×2 (15:01→19:41)
[2018-12-14] MEDS: *HR* Rivaroxaban 15 MG TABLET PO SCH (16:28)
[2018-12-14] MEDS: Cefdinir 300 MG CAPSULE PO SCH (20:14)
[2018-12-15 02:59] LABS: Basophils # 0.1 K/mcL (0.0-0.2); Basophils % 0.6 %; Eosinophils # 0.4 K/mcL (0.0-0.6); Eosinophils % 4.6 %; Hematocrit 33.6 % (35.3-44.9); Hemoglobin 10.5 g/dL (11.5-15.4); Immature Granulocytes % 1.1 % (0-4); Lymphocytes # 0.6 K/mcL (0.6-4.6); Lymphocytes % 7.3 %; Mean Corpuscular HGB Conc 31.3 g/dL (31.6-35.5); Mean Corpuscular Hemoglobin 31.2 pg (28.0-33.3); Mean Corpuscular Volume 99.7 fL (83.0-100.0); Mean Platelet Volume 9.1 fL (9.4-12.4); Monocytes # 1.1 K/mcL (0.0-1.3); Platelet Count 197 K/mcL (140-400); Red Blood Count 3.37 M/mcL (3.82-4.97); Red Cell Distribution Width 15.6 % (11.5-14.5); Segmented Neutrophils % 73.4 %; White Blood Count 8.2 K/mcL (4.3-11.1)
[2018-12-15 03:21] LABS: BUN/Creatinine Ratio 18 (6-26); Blood Urea Nitrogen 17 mg/dL (8-23); Calcium 8.5 mg/dL (8.6-10.3); Carbon Dioxide 32 mEq/L (23-29); Chloride 106 mEq/L (98-107); Glucose 109 mg/dL (70-105); Osmolality,Calculated 300 (280-300); Potassium 3.9 mEq/L (3.5-5.1); Sodium 144 mEq/L (136-145); eGFR For African Americans > 60 (> 60); eGFR For Non-African Americans 54 (> 60)
[2018-12-15] MEDS: Levothyroxine 25 MCG TABLET PO SCH (05:30)
[2018-12-15] MEDS: cefTRIAXone 1,000 MG in Water for inj. (sterile) 10 ML IVP SCH (06:46)
[2018-12-15] MEDS: Ipratropium/Albuterol Neb 3 ML IH PRN (07:30)
--- NOTE | 2018-12-15 07:39 | Discharge Summary ---
Orders not resulted at time of discharge: Pending orders 12/12/18 14:10 Culture,Blood [BC] Stat 12/16/18 04:00 BMP [Basic Metabolic Panel] AM 0400 CBC [Complete Blood Count] [HEME] AM 0400 Date of Encounter: 12/15/18 - Discharge Diagnosis (1) Hypertension Status: Chronic Qualifiers: Hypertension type: essential hypertension Qualified Code(s): I10 - Essential (primary) hypertension (2) Atrial fibrillation Status: Chronic Qualifiers: Atrial fibrillation type: paroxysmal Qualified Code(s): I48.0 - Paroxysmal atrial fibrillation (3) Hypokalemia Status: Acute (4) CKD (chronic kidney disease) stage 3, GFR 30-59 ml/min Status: Acute (5) COPD (chronic obstructive pulmonary disease) Status: Chronic Qualifiers: COPD type: chronic bronchitis Qualified Code(s): J41.0 - Simple chronic bronchitis (6) CAD (coronary artery disease) Status: Chronic Qualifiers: Coronary Disease-Associated Artery/Lesion type: bypass graft, autologous artery Associated angina: without angina Qualified Code(s): I25.810 - Athe rosclerosis of coronary artery bypass graft(s) without angina pectoris (7) Physical deconditioning Status: Acute (8) Cough Status: Acute (9) Acute cystitis with hematuria Status: Acute (10) Chronic respiratory failure Status: Acute Qualifiers: Qualified Code(s): J96.10 - Chronic respiratory failure, unspecified whether with hypoxia or hypercapnia (11) Chronic diastolic heart failure Status: Acute Hospital course: Ms. Thomas is a 88 year old female - Time Spent with Patient Total time spent providing and/or coordinating discharge services: - Discharge Medications Prescriptions: No Action Benzonatate [Tessalon] 100 mg PO Q8H PRN PRN Reason: Cough Ipratropium/Albuterol Neb [Duoneb] 3 ml IH Q6HR PRN PRN Reason: shaunna Sertraline [Zoloft] 25 mg PO DAILY Potassium Chloride [K-Tab ER] 10 meq PO BID Fluticasone/Vilanterol [Breo Ellipta 100-25 Mcg INH] 1 puff IH DAILY Omeprazole [PriLOSEC] 40 mg PO DAILY dilTIAZem HCl [Diltiazem 24Hr ER] 120 mg PO DAILY Amiodarone [Cordarone] 100 mg PO DAILY Ferrous Sulfate [Iron] 325 mg PO BID Acetaminophen [Tylenol] 650 mg PO Q6HR PRN PRN Reason: pain/fever Nitroglycerin [Nitrostat] 0.4 mg SL Q5-10MIN PRN PRN Reason: Chest Pain Atorvastatin [Lipitor] 40 mg PO HS Aspirin [Lo-Dose Aspirin EC] 81 mg PO DAILY Rivaroxaban [Xarelto] 15 mg PO DAILY predniSONE [Prednisone] 10 mg PO DAILY Cyanocobalamin (Vitamin B-12) [Vitamin B-12] 100 mcg PO DAILY Meclizine [Antivert] 12.5 mg PO TID PRN PRN Reason: Dizziness Levothyroxine [Synthroid] 25 mcg PO 30 Furosemide [Lasix] 40 mg PO BID Isosorbide MONOnitrate (24 HR) [Imdur] 90 mg PO DAILY Home Medications: Acetaminophen [Tylenol] 650 mg PO Q6HR PRN 12/12/18 [History] Amiodarone [Cordarone] 100 mg PO DAILY 12/12/18 [History] Aspirin [Lo-Dose Aspirin EC] 81 mg PO DAILY 12/12/18 [History] Atorvastatin [Lipitor] 40 mg PO HS 12/12/18 [History] Benzonatate [Tessalon] 100 mg PO Q8H PRN 12/12/18 [History] Cyanocobalamin (Vitamin B-12) [Vitamin B-12] 100 mcg PO DAILY 12/12/18 [History] Ferrous Sulfate [Iron] 325 mg PO BID 12/12/18 [History] Fluticasone/Vilanterol [Breo Ellipta 100-25 Mcg INH] 1 puff IH DAILY 12/12/18 [History] Furosemide [Lasix] 40 mg PO BID 12/12/18 [History] Ipratropium/Albuterol Neb [Duoneb] 3 ml IH Q6HR PRN 12/12/18 [History] Isosorbide MONOnitrate (24 HR) [Imdur] 90 mg PO DAILY 12/12/18 [History] Levothyroxine [Synthroid] 25 mcg PO 0630 12/12/18 [History] Meclizine [Antivert] 12.5 mg PO TID PRN 12/12/18 [History] Nitroglycerin [Nitrostat] 0.4 mg SL Q5-10MIN PRN 12/12/18 [History] Omeprazole [PriLOSEC] 40 mg PO DAILY 12/12/18 [History] Potassium Chloride [K-Tab ER] 10 meq PO BID 12/12/18 [History] Rivaroxaban [Xarelto] 15 mg PO DAILY 12/12/18 [History] Sertraline [Zoloft] 25 mg PO DAILY 12/12/18 [History] dilTIAZem HCl [Diltiazem 24Hr ER] 120 mg PO DAILY 12/12/18 [History] predniSONE [Prednisone] 10 mg PO DAILY 12/12/18 [History] Allergies/Adverse Reactions: Allergy/AdvReac Type Severity Reaction Status Date / Time clindamycin AdvReac See Verified 11/05/18 17:59 Comments hydrocodone [From Vicodin] AdvReac Nausea Verified 11/05/18 17:59 ranolazine [From Ranexa] AdvReac Rash Verified 11/05/18 17:59 Date of admission: 12/12/18 18:20 Primary care physician: Tyler Sharma Jr, MD Consults: 12/12/18 17:41 Consult to Occupational Therapy [CONS] Routine Comment: Evaluate, develop and implement POC Reason for Consult: deconditioning Does patient have active BEDREST order?: No Is patient medically & hemodynamically stable?: Yes Patient assessed for mobility or mobilized this visit?: No Consult to Physical Therapy [CONS] Routine Comment: Evaluate, develop and implement POC Reason for Consult: deconditioning Does patient have active BEDREST order?: No Is patient medically & hemodynamically stable?: Yes Patient assessed for mobility or mobilized this visit?: No 12/15/18 07:37 Consult to Dance Hall Hostess [CONS] Routine Reason for SW Consult: SNF - Constitutional Vitals: Temp Pulse Resp BP Pulse Ox 97.9 F 75 16 149/71 96 12/15/18 06:53 12/15/18 06:53 12/15/18 07:32 12/15/18 06:53 12/15/18 07:32 General appearance: Present: A&O X 3, no acute distress, obese - Patient Status Condition: Fair - Discharge Instructions Follow Up With: Tyler Sharma Jr, MD [Primary Care Provider] -
[2018-12-15] MEDS: Aspirin Enteric Coated 81 MG Tablet PO SCH (08:50)
[2018-12-15] MEDS: Cefdinir 300 MG CAPSULE PO SCH ×2 (08:50→20:30)
[2018-12-15] MEDS: *HR* Amiodarone 200 MG TABLET PO SCH (08:50)
[2018-12-15] MEDS: Furosemide 40 MG TABLET PO SCH (08:52)
[2018-12-15] MEDS: Isosorbide MONOnitrate (24 HR) 30 MG TAB.ER.24H PO SCH (08:52)
[2018-12-15] MEDS: Diltiazem CD (24hr) 120 MG CAPSULE PO SCH (08:52)
[2018-12-15] MEDS: Budesonide/Formoterol 160/4.5 1 PUFF INH IH SCH ×2 (10:52→20:00)
[2018-12-15] MEDS: Ipratropium/Albuterol Neb 3 ML IH SCH ×4 (11:28→23:31)
[2018-12-15] MEDS: MethylPREDNISolone 40 MG/ML VIAL IVP SCH ×2 (13:02→20:30)
[2018-12-15] MEDS: Azithromycin 250 MG TABLET PO SCH (13:02)
--- NOTE | 2018-12-15 13:16 | Internal Med Progress Note ---
Hospitalist Progress Note - Encounter Date of Encounter: 12/15/18 Time of Encounter: 13:00 - Subjective Interval History: No acute events overnight - Exam Vitals: Temp Pulse Resp BP Pulse Ox 98.1 F 78 16 92/60 96 12/15/18 11:00 12/15/18 11:00 12/15/18 11:29 12/15/18 11:00 12/15/18 11:29 Exam: General appearance: Present: A&O X 3, no acute distress, obese Exam: Head exam: Present: atraumatic, normocephalic Eye exam: Present: PERRL, conjuntiva pink, sclera anicteric Pupils: Present: PERRL Neck exam general surgery: Present: supple, trachea midline. Absent: lymphadenopathy Respiratory exam: Absent: accessory muscle use, rales, rhonchi, wheezes Additional comments: Bibasilar crackles improved and no expiratory wheezing Cardiovascular exam: Present: RRR, +S1, +S2. Absent: diastolic murmur, gallop, rubs, systolic murmur GI/Abdominal exam: Present: normal bowel sounds, soft, no peritoneal signs. Absent: distended, tenderness Extremities exam: Present: pedal edema but mild, warm, radial pulses palpable and symmetrical. Absent: calf tenderness, cyanotic Neurological exam: Present: CN II-XII intact, oriented X3, no focal deficits. Absent: pronater drift, facial droop, speech deficit Skin exam: Present: dry, intact - Assessment and Plan (1) Sepsis Current Visit: Yes Status: Acute Assessment and Plan: Sepsis 2/2 to E.coli UTI and bacterial community acquired pneumonia with leukocytosis of 17 Received IV antibiotics on admission which have been switched to PO Resolved (2) Acute cystitis with hematuria Current Visit: Yes Status: Acute Assessment and Plan: Pt has UTI 2/2 to E.coli Continue cefdinir po BID (3) COPD (chronic obstructive pulmonary disease) Current Visit: Yes Status: Chronic Assessment and Plan: Pt has acute COPD exacerbation with diffuse wheezes this am Continue on nebs, steroids and antibiotics (4) Hypertension Current Visit: Yes Status: Chronic Assessment and Plan: Cardizem and Imdur (5) Atrial fibrillation Current Visit: Yes Status: Chronic Assessment and Plan: On cardizem, Xarelto, and Amiodarone. Rate controlled (6) Hypokalemia Current Visit: Yes Status: Acute Assessment and Plan: Replaced (7) CKD (chronic kidney disease) stage 3, GFR 30-59 ml/min Current Visit: Yes Status: Acute Assessment and Plan: Cr above her baseline likely due to mild TRINA. Given IVF and Cr down from 1.28 to 1.07 to 1.01 (8) CAD (coronary artery disease) Current Visit: Yes Status: Chronic Assessment and Plan: ASA and Lipitor (9) Physical deconditioning Current Visit: No Status: Acute Assessment and Plan: Consulted PT and OT to see and recommending more rehab. (10) Chronic respiratory failure Current Visit: Yes Status: Acute Assessment and Plan: No acute exacerbation. Continue oxygen via nasal cannula (11) Moderate protein-energy malnutrition Current Visit: Yes Status: Acute Assessment and Plan: Boost with meals (12) Chronic diastolic heart failure Current Visit: Yes Status: Acute Assessment and Plan: Held home dose lasix for now due to TRINA. Will likely resume Lasix 40 mg PO QD today and her BID home dose at discharge. DVT Prophylaxis: On xarelto - Time Spent with Patient Total time spent is greater than 50% in coordination of care (as documented) at patient's floor/unit and/or counseling patient: Internal Medicine: Result - Labs CBC & Chem 7: 12/15/18 02:25 12/15/18 02:25 Labs: Short CBC 12/15/18 Range/Units 02:25 WBC 8.2 (4.3-11.1) K/mcL Hgb 10.5 L (11.5-15.4) g/dL Hct 33.6 L (35.3-44.9) % Plt Count 197 (140-400) K/mcL Neutrophils # 6.0 (1.6-8.9) K/mcL BMP 12/15/18 02:25 Sodium 144 Potassium 3.9 Chloride 106 Carbon Dioxide 32 H BUN 17 Creatinine 0.97 Glucose 109 H Calcium 8.5 L - ABG Interpretation ABG results: PT/INR, D-dimer PT 14.4 Seconds (9.4-12.1) H 12/12/18 12:55 Consult Discharge Plan - Plan Referrals: Tyler Sharma Jr, MD [Primary Care Provider] - (4) Hypertension Qualifiers: Hypertension type: essential hypertension Qualified Code(s): I10 - Essential (primary) hypertension (5) Atrial fibrillation Qualifiers: Atrial fibrillation type: paroxysmal Qualified Code(s): I48.0 - Paroxysmal atrial fibrillation (8) CAD (coronary artery disease) Qualifiers: Coronary Disease-Associated Artery/Lesion type: bypass graft, autologous artery Associated angina: without angina Qualified Code(s): I25.810 - Atherosclerosis of coronary artery bypass graft(s) without angina pectoris (10) Chronic respiratory failure Qualifiers: Qualified Code(s): J96.10 - Chronic respiratory failure, unspecified whether with hypoxia or hypercapnia
[2018-12-15] MEDS: *HR* Rivaroxaban 15 MG TABLET PO SCH (16:35)
[2018-12-16] MEDS: Ipratropium/Albuterol Neb 3 ML IH SCH ×6 (03:13→23:28)
[2018-12-16 06:53] LABS: Basophils % 0.1 %; Hematocrit 32.9 % (35.3-44.9); Hemoglobin 10.2 g/dL (11.5-15.4); Immature Granulocytes % 0.7 % (0-4); Lymphocytes # 0.2 K/mcL (0.6-4.6); Lymphocytes % 1.9 %; Mean Corpuscular Hemoglobin 31.2 pg (28.0-33.3); Mean Corpuscular Volume 100.6 fL (83.0-100.0); Mean Platelet Volume 9.2 fL (9.4-12.4); Monocytes # 0.1 K/mcL (0.0-1.3); Monocytes % 1.2 %; Platelet Count 193 K/mcL (140-400); Red Blood Count 3.27 M/mcL (3.82-4.97); Red Cell Distribution Width 15.4 % (11.5-14.5); Segmented Neutrophils % 96.1 %; White Blood Count 9.8 K/mcL (4.3-11.1)
[2018-12-16 07:01] LABS: Neutrophils # 9.4 K/mcL (1.6-8.9)
[2018-12-16] MEDS: Levothyroxine 25 MCG TABLET PO SCH (07:02)
[2018-12-16] MEDS: MethylPREDNISolone 40 MG/ML VIAL IVP SCH (07:02)
[2018-12-16 07:13] LABS: Calcium 8.8 mg/dL (8.6-10.3); Potassium 4.5 mEq/L (3.5-5.1)
[2018-12-16 07:17] LABS: Platelet Estimate Normal (Normal)
--- NOTE | 2018-12-16 07:34 | Internal Med Progress Note ---
Hospitalist Progress Note - Encounter Date of Encounter: 12/16/18 Time of Encounter: 07:30 - Subjective Interval History: No acute events overnight - Exam Vitals: Temp Pulse Resp BP Pulse Ox 98.3 F 72 16 102/54 96 12/16/18 07:15 12/16/18 07:15 12/16/18 07:15 12/16/18 07:15 12/16/18 07:15 Exam: General appearance: Present: A&O X 3, no acute distress, obese Exam: Head exam: Present: atraumatic, normocephalic Eye exam: Present: PERRL, conjuntiva pink, sclera anicteric Pupils: Present: PERRL Neck exam general surgery: Present: supple, trachea midline. Absent: lymphadenopathy Respiratory exam: Absent: accessory muscle use, rales, rhonchi, wheezes Additional comments: Bibasilar crackles improved and no expiratory wheezing Cardiovascular exam: Present: RRR, +S1, +S2. Absent: diastolic murmur, gallop, rubs, systolic murmur GI/Abdominal exam: Present: normal bowel sounds, soft, no peritoneal signs. Absent: distended, tenderness Extremities exam: Present: pedal edema but mild, warm, radial pulses palpable and symmetrical. Absent: calf tenderness, cyanotic Neurological exam: Present: CN II-XII intact, oriented X3, no focal deficits. Absent: pronater drift, facial droop, speech deficit Skin exam: Present: dry, intact - Assessment and Plan (1) Sepsis Current Visit: Yes Status: Acute Assessment and Plan: Sepsis 2/2 to E.coli UTI and bacterial community acquired pneumonia with leukocytosis of 17 Received IV antibiotics on admission which have been switched to PO Resolved (2) Acute cystitis with hematuria Current Visit: Yes Status: Acute Assessment and Plan: Pt has UTI 2/2 to E.coli Continue cefdinir po BID (3) COPD (chronic obstructive pulmonary disease) Current Visit: Yes Status: Chronic Assessment and Plan: Pt has acute COPD exacerbation with diffuse wheezes this am Continue on nebs, steroids and antibiotics Improving. Steroids tapered to po (4) Hypertension Current Visit: Yes Status: Chronic Assessment and Plan: Cardizem and Imdur (5) Atrial fibrillation Current Visit: Yes Status: Chronic Assessment and Plan: On cardizem, Xarelto, and Amiodarone. Rate controlled (6) Hypokalemia Current Visit: Yes Status: Acute Assessment and Plan: Replaced (7) CKD (chronic kidney disease) stage 3, GFR 30-59 ml/min Current Visit: Yes Status: Acute Assessment and Plan: Cr above her baseline likely due to mild TRINA. Given IVF and Cr down from 1.28 to 1.07 to 1.01 (8) CAD (coronary artery disease) Current Visit: Yes Status: Chronic Assessment and Plan: ASA and Lipitor (9) Physical deconditioning Current Visit: No Status: Acute Assessment and Plan: Consulted PT and OT to see and recommending more rehab. (10) Chronic respiratory failure Current Visit: Yes Status: Acute Assessment and Plan: No acute exacerbation. Continue oxygen via nasal cannula (11) Moderate protein-energy malnutrition Current Visit: Yes Status: Acute Assessment and Plan: Boost with meals (12) Chronic diastolic heart failure Current Visit: Yes Status: Acute Assessment and Plan: Held home dose lasix for now due to TRINA. Will likely resume Lasix 40 mg PO QD today and her BID home dose at discharge. DVT Prophylaxis: On xarelto - Time Spent with Patient Total time spent is greater than 50% in coordination of care (as documented) at patient's floor/unit and/or counseling patient: Internal Medicine: Result - Labs CBC & Chem 7: 12/16/18 06:22 12/16/18 06:22 Labs: Short CBC 12/16/18 Range/Units 06:22 WBC 9.8 (4.3-11.1) K/mcL Hgb 10.2 L (11.5-15.4) g/dL Hct 32.9 L (35.3-44.9) % Plt Count 193 (140-400) K/mcL Neutrophils # 9.4 H (1.6-8.9) K/mcL BMP 12/16/18 06:22 Sodium 143 Potassium 4.5 Chloride 101 Carbon Dioxide 32 H BUN 23 Creatinine 1.08 Glucose 191 H Calcium 8.8 - ABG Interpretation ABG results: PT/INR, D-dimer PT 14.4 Seconds (9.4-12.1) H 12/12/18 12:55 Consult Discharge Plan - Plan Referrals: Tyler Sharma Jr, MD [Primary Care Provider] - (4) Hypertension Qualifiers: Hypertension type: essential hypertension Qualified Code(s): I10 - Essential (primary) hypertension (5) Atrial fibrillation Qualifiers: Atrial fibrillation type: paroxysmal Qualified Code(s): I48.0 - Paroxysmal atrial fibrillation (8) CAD (coronary artery disease) Qualifiers: Coronary Disease-Associated Artery/Lesion type: bypass graft, autologous artery Associated angina: without angina Qualified Code(s): I25.810 - Atherosclerosis of coronary artery bypass graft(s) without angina pectoris (10) Chronic respiratory failure Qualifiers: Qualified Code(s): J96.10 - Chronic respiratory failure, unspecified whether with hypoxia or hypercapnia
[2018-12-16] MEDS: Budesonide/Formoterol 160/4.5 1 PUFF INH IH SCH ×2 (07:43→19:24)
[2018-12-16] MEDS: Isosorbide MONOnitrate (24 HR) 30 MG TAB.ER.24H PO SCH (08:31)
[2018-12-16] MEDS: *HR* Amiodarone 200 MG TABLET PO SCH (08:32)
[2018-12-16] MEDS: Furosemide 40 MG TABLET PO SCH (08:32)
[2018-12-16] MEDS: Diltiazem CD (24hr) 120 MG CAPSULE PO SCH (08:32)
[2018-12-16] MEDS: Cefdinir 300 MG CAPSULE PO SCH (08:32)
[2018-12-16] MEDS: Azithromycin 250 MG TABLET PO SCH (08:32)
[2018-12-16] MEDS: Aspirin Enteric Coated 81 MG Tablet PO SCH (08:33)
[2018-12-16] MEDS ORDERED: Furosemide 40 MG/4 ML VIAL IVP SCH ×2 (14:15→17:00)
[2018-12-16] MEDS: Furosemide 40 MG/4 ML VIAL IVP SCH ×2 (15:32→15:38)
[2018-12-16] MEDS ORDERED: MethylPREDNISolone 40 MG/ML VIAL IVP SCH (16:00)
[2018-12-16] MEDS: predniSONE 20 MG TABLET PO SCH (17:17)
[2018-12-16] MEDS: *HR* Rivaroxaban 15 MG TABLET PO SCH (17:18)
[2018-12-16] MEDS ORDERED: Furosemide 20 MG/2 ML VIAL IVP SCH (21:00)
[2018-12-17] MEDS: Ipratropium/Albuterol Neb 3 ML IH SCH ×3 (03:47→11:04)
[2018-12-17 03:51] LABS: ABG Base Excess 8 mEq/L (-2 to 3); ABG HCO3 34 mEq/L (21-27); ABG Oxygen Saturation 100 % (95-98); ABG PCO2 48 mmHg (35-45); ABG PH 7.45 pH Units (7.32-7.45); ABG PO2 173 mmHg (85-104); ABG TCO2 35 mEq/L (20-26)
[2018-12-17] MEDS: Levothyroxine 25 MCG TABLET PO SCH (04:56)
[2018-12-17 06:47] LABS: Calcium 8.8 mg/dL (8.6-10.3); Potassium 4.7 mEq/L (3.5-5.1); Troponin I 0.1 ng/mL (< 0.04)
--- NOTE | 2018-12-17 06:57 | Event Note ---
Date of Encounter: 12/17/18 Time of Encounter: 05:49 Alerted by patient's nurse SABRINA Bullard that patient was reporting 10 out of 10 chest pain, was flushed and holding her chest stating that it hurts very badly. Patient has had 2 nosebleeds overnight which lasted approximately 30 minutes each. Waiting on H&H. Nurse instructed to get stat EKG and stat troponin and place an ice pack on the back of the patient's neck. Went to see the pt. who was resting in bed and was having EKG done. Pt. reported CP was now a 4/10 and was improving. BP at the time was 106/65. EKG showed normal sinus rhythm with a heart rate of 82. Stat troponin resulted in 0.10. Will trend troponins. A.M. team to monitor pt. closely and determine the need for a possible Cardiology consult. Patient was admitted with acute cystitis with hematuria. Nurse instructed to continue monitoring the pt. closely and alert me immediately of any adverse changes.
[2018-12-17] MEDS: Budesonide/Formoterol 160/4.5 1 PUFF INH IH SCH (07:16)
[2018-12-17] MEDS: *HR* Amiodarone 200 MG TABLET PO SCH (07:43)
[2018-12-17] MEDS: Isosorbide MONOnitrate (24 HR) 30 MG TAB.ER.24H PO SCH (07:43)
--- NOTE | 2018-12-17 07:49 | Discharge Summary ---
Date of Encounter: 12/17/18 Time of Encounter: 08:00 - Discharge Diagnosis (1) Sepsis Priority: Primary Status: Acute Assessment and Plan: Ms. Thomas is a 88 year old female with history of hearing loss (HL),. Pt states she used to live alone but then she fell and was admitted to [place] and from there she was then referred to SNF at [facility] for rehab. She has been at [facility] since around May 2018. Pt states she had been having fever and chills. She reports having dysuria, she states symptoms have been going on for 2 days. She was assessed with sepsis 2/2 to E.coli UTI and bacterial community acquired pneumonia with leukocytosis of 17. She has completed a course of broad spectrum antibiotics and her sepsis has resolved. She was also noted to be wheezing and likely had a COPD exacerbation which resolved with nebs and steroids. She had an acute worsenin of her chronic diastolic CHF which resolved with diuresis She had an episode of shortness of breath this am and troponins were ordered and they came back mildly elevated. Per cardiology consult a month ago, she has declined any invasive intervention and opts for medical management. She is no longer short of breath and is chest pain free. She was discharged in a stable condition. 35 minutes was spent discharging this patient Qualifiers: Qualified Code(s): A41.9 - Sepsis, unspecified organism (2) Acute cystitis with hematuria Priority: Primary Status: Acute (3) COPD (chronic obstructive pulmonary disease) Priority: Primary Status: Chronic (4) Hypertension Priority: Primary Status: Chronic Qualifiers: Hypertension type: essential hypertension Qualified Code(s): I10 - Essential (primary) hypertension (5) Atrial fibrillation Priority: Primary Status: Chronic Qualifiers: Atrial fibrillation type: paroxysmal Qualified Code(s): I48.0 - Paroxysmal atrial fibrillation (6) Hypokalemia Priority: Primary Status: Acute (7) CKD (chronic kidney disease) stage 3, GFR 30-59 ml/min Priority: Primary Status: Acute (8) CAD (coronary artery disease) Priority: Primary Status: Chronic Qualifiers: Coronary Disease-Associated Artery/Lesion type: bypass graft, autologous artery Associated angina: without angina Qualified Code(s): I25.810 - Atherosclerosis of coronary artery bypass graft(s) without angina pectoris (9) Physical deconditioning Priority: Primary Status: Acute (10) Chronic respiratory failure Priority: Primary Status: Acute Qualifiers: Qualified Code(s): J96.10 - Chronic respiratory failure, unspecified whether with hypoxia or hypercapnia (11) Moderate protein-energy malnutrition Priority: Primary Status: Acute (12) Chronic diastolic heart failure Priority: Primary Status: Acute Hospital course: Ms. Thomas is a 88 year old female - Time Spent with Patient Total time spent providing and/or coordinating discharge services: - Discharge Medications Prescriptions: Continued Benzonatate [Tessalon] 100 mg PO Q8H PRN PRN Reason: Cough Ipratropium/Albuterol Neb [Duoneb] 3 ml IH Q6HR PRN PRN Reason: shaunna Sertraline [Zoloft] 25 mg PO DAILY Potassium Chloride [K-Tab ER] 10 meq PO BID Fluticasone/Vilanterol [Breo Ellipta 100-25 Mcg INH] 1 puff IH DAILY Omeprazole [PriLOSEC] 40 mg PO DAILY dilTIAZem HCl [Diltiazem 24Hr ER] 120 mg PO DAILY Amiodarone [Cordarone] 100 mg PO DAILY Ferrous Sulfate [Iron] 325 mg PO BID Acetaminophen [Tylenol] 650 mg PO Q6HR PRN PRN Reason: pain/fever Nitroglycerin [Nitrostat] 0.4 mg SL Q5-10MIN PRN PRN Reason: Chest Pain Atorvastatin [Lipitor] 40 mg PO HS Aspirin [Lo-Dose Aspirin EC] 81 mg PO DAILY Rivaroxaban [Xarelto] 15 mg PO DAILY predniSONE [Prednisone] 10 mg PO DAILY Cyanocobalamin (Vitamin B-12) [Vitamin B-12] 100 mcg PO DAILY Meclizine [Antivert] 12.5 mg PO TID PRN PRN Reason: Dizziness Levothyroxine [Synthroid] 25 mcg PO 0630 Furosemide [Lasix] 40 mg PO BID Isosorbide MONOnitrate (24 HR) [Imdur] 90 mg PO DAILY Home Medications: Acetaminophen [Tylenol] 650 mg PO Q6HR PRN 12/12/18 [History] Amiodarone [Cordarone] 100 mg PO DAILY 12/12/18 [History] Aspirin [Lo-Dose Aspirin EC] 81 mg PO DAILY 12/12/18 [History] Atorvastatin [Lipitor] 40 mg PO HS 12/12/18 [History] Benzonatate [Tessalon] 100 mg PO Q8H PRN 12/12/18 [History] Cyanocobalamin (Vitamin B-12) [Vitamin B-12] 100 mcg PO DAILY 12/12/18 [History] Ferrous Sulfate [Iron] 325 mg PO BID 12/12/18 [History] Fluticasone/Vilanterol [Breo Ellipta 100-25 Mcg INH] 1 puff IH DAILY 12/12/18 [H istory] Furosemide [Lasix] 40 mg PO BID 12/12/18 [History] Ipratropium/Albuterol Neb [Duoneb] 3 ml IH Q6HR PRN 12/12/18 [History] Isosorbide MONOnitrate (24 HR) [Imdur] 90 mg PO DAILY 12/12/18 [History] Levothyroxine [Synthroid] [place] [address]/12/18 [History] Meclizine [Antivert] 12.5 mg PO TID PRN 12/12/18 [History] Nitroglycerin [Nitrostat] 0.4 mg SL Q5-10MIN PRN 12/12/18 [History] Omeprazole [PriLOSEC] 40 mg PO DAILY 12/12/18 [History] Potassium Chloride [K-Tab ER] 10 meq PO BID 12/12/18 [History] Rivaroxaban [Xarelto] 15 mg PO DAILY 12/12/18 [History] Sertraline [Zoloft] 25 mg PO DAILY 12/12/18 [History] dilTIAZem HCl [Diltiazem 24Hr ER] 120 mg PO DAILY 12/12/18 [History] predniSONE [Prednisone] 10 mg PO DAILY 12/12/18 [History] Allergies/Adverse Reactions: Allergy/AdvReac Type Severity Reaction Status Date / Time clindamycin AdvReac See Verified 11/05/18 17:59 Comments hydrocodone [From Vicodin] AdvReac Nausea Verified 11/05/18 17:59 ranolazine [From Ranexa] AdvReac Rash Verified 11/05/18 17:59 Date of admission: 12/12/18 18:20 Primary care physician: Tyler Sharma Jr, MD Consults: 12/12/18 17:41 Consult to Occupational Therapy [CONS] Routine Comment: Evaluate, develop and implement POC Reason for Consult: deconditioning Does patient have active BEDREST order?: No Is patient medically & hemodynamically stable?: Yes Patient assessed for mobility or mobilized this visit?: No Consult to Physical Therapy [CONS] Routine Comment: Evaluate, develop and implement POC Reason for Consult: deconditioning Does patient have active BEDREST order?: No Is patient medically & hemodynamically stable?: Yes Patient assessed for mobility or mobilized this visit?: No 12/15/18 07:37 Consult to [employer] Helper [CONS] Routine Reason for SW Consult: SNF - Constitutional Vitals: Temp Pulse Resp BP Pulse Ox 97.8 F 73 19 92/54 99 12/17/18 07:23 12/17/18 07:23 12/17/18 07:23 12/17/18 07:23 12/17/18 07:23 General appearance: Present: A&O X 3, no acute distress, obese Exam: General appearance: Present: A&O X 3, no acute distress, obese Exam: Head exam: Present: atraumatic, normocephalic Eye exam: Present: PERRL, conjuntiva pink, sclera anicteric Pupils: Present: PERRL Neck exam general surgery: Present: supple, trachea midline. Absent: lymphadenopathy Respiratory exam: Absent: accessory muscle use, rales, rhonchi, wheezes Additional comments: Bibasilar crackles improved and no expiratory wheezing Cardiovascular exam: Present: RRR, +S1, +S2. Absent: diastolic murmur, gallop, rubs, systolic murmur GI/Abdominal exam: Present: normal bowel sounds, soft, no peritoneal signs. Absent: distended, tenderness Extremities exam: Present: pedal edema but mild, warm, radial pulses palpable and symmetrical. Absent: calf tenderness, cyanotic Neurological exam: Present: CN II-XII intact, oriented X3, no focal deficits. Absent: pronater drift, facial droop, speech deficit Skin exam: Present: dry, intact - Patient Status Disposition: Home, Self-Care Condition: Good - Discharge Instructions Follow Up With: Tyler Sharma Jr, MD [Primary Care Provider] -
--- NOTE | 2018-12-17 07:50 | Physician Discharge Referral ---
- Diagnosis (1) Sepsis Priority: Primary Status: Acute (2) Acute cystitis with hematuria Priority: Primary Status: Acute (3) COPD (chronic obstructive pulmonary disease) Priority: Primary Status: Chronic (4) Hypertension Priority: Primary Status: Chronic (5) Atrial fibrillation Priority: Primary Status: Chronic (6) Hypokalemia Priority: Primary Status: Acute (7) CKD (chronic kidney disease) stage 3, GFR 30-59 ml/min Priority: Primary Status: Acute (8) CAD (coronary artery disease) Priority: Primary Status: Chronic (9) Physical deconditioning Priority: Primary Status: Acute (10) Chronic respiratory failure Priority: Primary Status: Acute (11) Moderate protein-energy malnutrition Priority: Primary Status: Acute (12) Chronic diastolic heart failure Priority: Primary Status: Acute - Transfer Medications Home Medications: Acetaminophen [Tylenol] 650 mg PO Q6HR PRN 12/12/18 [History] Amiodarone [Cordarone] 100 mg PO DAILY 12/12/18 [History] Aspirin [Lo-Dose Aspirin EC] 81 mg PO DAILY 12/12/18 [History] Atorvastatin [Lipitor] 40 mg PO HS 12/12/18 [History] Benzonatate [Tessalon] 100 mg PO Q8H PRN 12/12/18 [History] Cyanocobalamin (Vitamin B-12) [Vitamin B-12] 100 mcg PO DAILY 12/12/18 [History] Ferrous Sulfate [Iron] 325 mg PO BID 12/12/18 [History] Fluticasone/Vilanterol [Breo Ellipta 100-25 Mcg INH] 1 puff IH DAILY 12/12/18 [History] Furosemide [Lasix] 40 mg PO BID 12/12/18 [History] Ipratropium/Albuterol Neb [Duoneb] 3 ml IH Q6HR PRN 12/12/18 [History] Isosorbide MONOnitrate (24 HR) [Imdur] 90 mg PO DAILY 12/12/18 [History] Levothyroxine [Synthroid] 25 mcg PO 30 12/12/18 [History] Meclizine [Antivert] 12.5 mg PO TID PRN 12/12/18 [History] Nitroglycerin [Nitrostat] 0.4 mg SL Q5-10MIN PRN 12/12/18 [History] Omeprazole [PriLOSEC] 40 mg PO DAILY 12/12/18 [History] Potassium Chloride [K-Tab ER] 10 meq PO BID 12/12/18 [History] Rivaroxaban [Xarelto] 15 mg PO DAILY 12/12/18 [History] Sertraline [Zoloft] 25 mg PO DAILY 12/12/18 [History] dilTIAZem HCl [Diltiazem 24Hr ER] 120 mg PO DAILY 12/12/18 [History] predniSONE [Prednisone] 10 mg PO DAILY 12/12/18 [History] Allergies/Adverse Reactions: Allergy/AdvReac Type Severity Reaction Status Date / Time clindamycin AdvReac See Verified 11/05/18 17:59 Comments hydrocodone [From Vicodin] AdvReac Nausea Verified 11/05/18 17:59 ranolazine [From Ranexa] AdvReac Rash Verified 11/05/18 17:59 - Respiratory Orders Smoking Cessation: Smoking cessation has been advised. For more information, call the [place] Tobacco Quit Line at 1-186-ALFI-NOW. - Mobility Orders Ambulate - Diet Orders Cardiac CERTIFICATION: I certify that the transfer of the above named patient to an Extended Care Facility is necessary for the continuing treatment of the diagnosis listed. The above information is true and accurate reflection of patient's current condition. Confidential - Redisclosure prohibited without a patient's written consent.
[2018-12-17] MEDS ORDERED: Cefdinir 300 MG CAPSULE PO SCH (09:00)
[2018-12-17] MEDS: Aspirin Enteric Coated 81 MG Tablet PO SCH (09:10)
[2018-12-17] MEDS: predniSONE 20 MG TABLET PO SCH (09:10)
[2018-12-17] MEDS: Diltiazem CD (24hr) 120 MG CAPSULE PO SCH (09:10)
[2018-12-17] MEDS: Azithromycin 250 MG TABLET PO SCH (09:10)
[2018-12-17] MEDS ORDERED: Saline Nasal Spray 44 ML BOTTLE NS PRN (10:47)
[2018-12-17 11:29] VITALS: BP 100/63
[2018-12-17 12:03] LABS: Basophils % 0.1 %; Hematocrit 35.4 % (35.3-44.9); Hemoglobin 11.1 g/dL (11.5-15.4); Immature Granulocytes % 0.9 % (0-4); Lymphocytes # 0.2 K/mcL (0.6-4.6); Mean Corpuscular HGB Conc 31.4 g/dL (31.6-35.5); Mean Corpuscular Hemoglobin 31.5 pg (28.0-33.3); Mean Corpuscular Volume 100.6 fL (83.0-100.0); Mean Platelet Volume 9.2 fL (9.4-12.4); Monocytes # 1.3 K/mcL (0.0-1.3); Neutrophils # 20.2 K/mcL (1.6-8.9); Platelet Count 245 K/mcL (140-400); Red Blood Count 3.52 M/mcL (3.82-4.97); Red Cell Distribution Width 15.8 % (11.5-14.5); White Blood Count 21.9 K/mcL (4.3-11.1)
--- NOTE | 2018-12-17 12:57 | Electrocardiograph Report ---
[place] [id number] Test Date: 2018-12-17 Pat Name: Ginger Thomas Department: 112 Room: 2A13 Gender: F [employer]: : [id number] Requested By: Francisco Solano Order Number: [id number] Reading MD: Roula Estevez Measurements Intervals [place] Rate: 79 P: 43 PA: 147 QRS: 16 QRSD: 90 T: 29 QT: 370 QTc: 405 Interpretive Statements SINUS RHYTHM Electronically Signed On 12-17-2018 12:55:42 EDT by Roula Estevez
== END 2018-12-17 14:03 | disposition home or self-care (01) | DRG 871 ==
LOC: 2ANU 11:58 → EMEROOARM 11:58 → 2ANU 18:17
PROVIDERS: ADMIT Internal Medicine Nephrology; ATTEND Internal Medicine Nephrology

== ENCOUNTER 2019-04-18 03:01 | Observation (INO) ==
[2019-04-18] MEDS ORDERED: Aspirin 81 MG TAB.CHEW PO ONE (03:07)
[2019-04-18] MEDS: Nitroglycerin 0.4 MG TAB.SUBL SL PRN ×2 (03:37→03:47)
[2019-04-18 03:50] LABS: Bilirubin,Urine Negative (Negative); Blood,Urine Moderate (Negative); Clarity,Urine Clear (Clear); Color,Urine Yellow (Yellow); Glucose,Urine (UA) Normal (Normal); Ketones,Urine Negative (Negative); Leukocyte Esterase,Urine Negative (Negative); Nitrite,Urine Negative (Negative); PH,Urine 7.5 pH Units (5.0-8.0); Protein,Urine Negative (Neg-Trace); Specific Gravity,Urine 1.012 (1.010-1.025); Urobilinogen,Urine Normal (Normal)
[2019-04-18 03:53] LABS: Bacteria,Urine None Seen per hpf (None-Few); Hyaline Casts,Urine None Seen per lpf (None-Few); Squamous Epithelial Cell,Urine Many per lpf (None-Few); WBC,Urine 0-3 per hpf (0-3)
[2019-04-18 03:55] LABS: Basophils # 0.1 K/mcL (0.0-0.2); Basophils % 0.8 %; Eosinophils # 0.6 K/mcL (0.0-0.6); Eosinophils % 6.7 %; Hematocrit 40.5 % (35.3-44.9); Immature Granulocytes % 0.7 % (0-4); Lymphocytes # 1.7 K/mcL (0.6-4.6); Lymphocytes % 19.7 %; Mean Corpuscular HGB Conc 32.1 g/dL (31.6-35.5); Mean Corpuscular Hemoglobin 30.1 pg (28.0-33.3); Mean Corpuscular Volume 93.8 fL (83.0-100.0); Mean Platelet Volume 9.4 fL (9.4-12.4); Monocytes # 1.1 K/mcL (0.0-1.3); Monocytes % 12.4 %; Neutrophils # 5.2 K/mcL (1.6-8.9); Platelet Count 242 K/mcL (140-400); Red Blood Count 4.32 M/mcL (3.82-4.97); Red Cell Distribution Width 15.9 % (11.5-14.5); Segmented Neutrophils % 59.7 %; White Blood Count 8.7 K/mcL (4.3-11.1)
[2019-04-18 03:56] LABS: Prothrombin Time 11.5 Seconds (9.4-12.1)
[2019-04-18 03:58] LABS: Activated Partial Thrombo Time 37.1 Seconds (26.0-36.0)
[2019-04-18 04:12] LABS: BUN/Creatinine Ratio 15 (6-26); Blood Urea Nitrogen 16 mg/dL (8-23); Calcium 8.8 mg/dL (8.6-10.3); Carbon Dioxide 32 mEq/L (23-29); Chloride 103 mEq/L (98-107); Glucose 79 mg/dL (70-105); Osmolality,Calculated 296 (280-300); Potassium 3.7 mEq/L (3.5-5.1); Sodium 143 mEq/L (136-145); eGFR For African Americans 57 (> 60); eGFR For Non-African Americans 47 (> 60)
[2019-04-18 04:13] LABS: Troponin I < 0.03 ng/mL (< 0.04)
[2019-04-18] MEDS ORDERED: Furosemide 40 MG/4 ML VIAL IVP ONE (04:28)
[2019-04-18] MEDS ORDERED: Naloxone 0.4 MG/ML INJ IVP PRN (07:54)
[2019-04-18] MEDS ORDERED: Ondansetron 4 MG/2 ML VIAL IVP PRN (07:54)
[2019-04-18] MEDS ORDERED: Benzonatate 100 MG CAPSULE PO PRN (07:56)
[2019-04-18] MEDS ORDERED: MOM Conc 10 ML UD.LIQ PO PRN (07:56)
[2019-04-18] MEDS ORDERED: Ipratropium/Albuterol Neb 3 ML IH PRN (07:56)
[2019-04-18] MEDS ORDERED: Acetaminophen 325 MG TABLET PO PRN (07:56)
[2019-04-18] MEDS ORDERED: NON-FORMULARY MEDICATION 1 EACH EACH (Fluticasone/Vilanterol [Breo Ellipta 100-25 Mcg Inh] IH SCH (09:00)
[2019-04-18] MEDS: Apixaban 2.5 MG TABLET PO SCH ×2 (10:11→21:22)
[2019-04-18] MEDS: *HR* Amiodarone 200 MG TABLET PO SCH (10:12)
[2019-04-18] MEDS: Aspirin Enteric Coated 81 MG Tablet PO SCH (10:12)
[2019-04-18] MEDS: Isosorbide MONOnitrate (24 HR) 30 MG TAB.ER.24H PO SCH (10:12)
[2019-04-18] MEDS: Diltiazem CD (24hr) 120 MG CAPSULE PO SCH (10:13)
[2019-04-18] MEDS: Furosemide 40 MG TABLET PO SCH ×2 (10:24→17:59)
[2019-04-18] MEDS: Budesonide/Formoterol 80/4.5 1 PUFF INH IH SCH ×2 (10:53→22:56)
[2019-04-19] MEDS: Budesonide/Formoterol 80/4.5 1 PUFF INH IH SCH ×2 (08:03→22:23)
[2019-04-19] MEDS: Furosemide 40 MG TABLET PO SCH ×2 (09:47→16:21)
[2019-04-19] MEDS: predniSONE 10 MG TABLET PO SCH (09:47)
[2019-04-19] MEDS: Isosorbide MONOnitrate (24 HR) 30 MG TAB.ER.24H PO SCH (09:47)
[2019-04-19] MEDS: Aspirin Enteric Coated 81 MG Tablet PO SCH (09:47)
[2019-04-19] MEDS: Apixaban 2.5 MG TABLET PO SCH ×2 (09:47→21:13)
[2019-04-19] MEDS: Diltiazem CD (24hr) 120 MG CAPSULE PO SCH (09:47)
[2019-04-19] MEDS: *HR* Amiodarone 200 MG TABLET PO SCH (09:47)
[2019-04-19 13:11] LABS: Basophils # 0.1 K/mcL (0.0-0.2); Basophils % 0.8 %; Eosinophils # 0.4 K/mcL (0.0-0.6); Eosinophils % 5.3 %; Hematocrit 36.1 % (35.3-44.9); Immature Granulocytes % 0.5 % (0-4); Lymphocytes # 0.5 K/mcL (0.6-4.6); Lymphocytes % 6.2 %; Mean Corpuscular HGB Conc 33.2 g/dL (31.6-35.5); Mean Corpuscular Volume 93.3 fL (83.0-100.0); Mean Platelet Volume 9.5 fL (9.4-12.4); Monocytes # 0.6 K/mcL (0.0-1.3); Monocytes % 7.7 %; Neutrophils # 6.2 K/mcL (1.6-8.9); Platelet Count 223 K/mcL (140-400); Red Blood Count 3.87 M/mcL (3.82-4.97); Red Cell Distribution Width 15.6 % (11.5-14.5); Segmented Neutrophils % 79.5 %; White Blood Count 7.8 K/mcL (4.3-11.1)
[2019-04-19 13:33] LABS: Calcium 8.5 mg/dL (8.6-10.3); Chol/HDL Ratio 4.1 (0-4.9); Potassium 3.2 mEq/L (3.5-5.1)
[2019-04-20 05:51] LABS: Hematocrit 37.2 % (35.3-44.9); Hemoglobin 11.7 g/dL (11.5-15.4); Mean Corpuscular HGB Conc 31.5 g/dL (31.6-35.5); Mean Corpuscular Hemoglobin 29.5 pg (28.0-33.3); Mean Corpuscular Volume 93.7 fL (83.0-100.0); Mean Platelet Volume 9.5 fL (9.4-12.4); Platelet Count 202 K/mcL (140-400); Red Blood Count 3.97 M/mcL (3.82-4.97); Red Cell Distribution Width 15.5 % (11.5-14.5); White Blood Count 7.7 K/mcL (4.3-11.1)
[2019-04-20 06:10] LABS: Calcium 8.3 mg/dL (8.6-10.3); Potassium 3.3 mEq/L (3.5-5.1)
[2019-04-20] MEDS ORDERED: Furosemide 40 MG TABLET PO SCH (09:00)
[2019-04-20] MEDS: Budesonide/Formoterol 80/4.5 1 PUFF INH IH SCH (09:58)
[2019-04-20] MEDS: Aspirin Enteric Coated 81 MG Tablet PO SCH (10:51)
[2019-04-20] MEDS: Isosorbide MONOnitrate (24 HR) 30 MG TAB.ER.24H PO SCH (10:51)
[2019-04-20] MEDS: *HR* Amiodarone 200 MG TABLET PO SCH (10:51)
[2019-04-20] MEDS: predniSONE 10 MG TABLET PO SCH (10:51)
[2019-04-20] MEDS: Apixaban 2.5 MG TABLET PO SCH (10:51)
[2019-04-20] MEDS: Furosemide 40 MG TABLET PO SCH (10:51)
[2019-04-20 11:37] VITALS: BP 93/53
== END 2019-04-20 14:17 ==
LOC: 3BNU 03:01 → EMEROOARM 03:01 → SUATTDRO 05:41 → 3BNU 06:00
PROVIDERS: ADMIT Family Medicine; ATTEND Internal Medicine